=== PATIENT | female | born 1940 | race Caucasian/White ===

== ENCOUNTER → 2016-06-17 | Outpatient (CLI) | payer BC, MEDICARE ==
--- NOTE | 2016-06-17 10:14 | XR ---
EXAMINATION TYPE: XR knee complete RT DATE OF EXAM: 06/17/2016 10:02 AM CLINICAL HISTORY: pain TECHNIQUE: Frontal, lateral and oblique images of the right foot are obtained. COMPARISON: None. FINDINGS: There is no acute fracture/dislocation evident. The joint spaces appear within normal scott its. The overlying soft tissue appears unremarkable. IMPRESSION: There is no acute fracture or dislocation. ICD 10 NO FRACTURE, INITIAL EVALUATION
== END | disposition home or self-care (01) ==
LOC: RADXRMAIN 09:32
PROVIDERS: ATTEND Physician Assistant
DX: S83.411A Sprain of medial collateral ligament of right knee, initial encounter (principal)

== ENCOUNTER → 2018-07-18 | Outpatient (CLI) | payer MEDICARE ==
--- NOTE | 2018-07-18 13:20 | US ---
EXAMINATION TYPE: US venous doppler duplex LE LT DATE OF EXAM: 07/18/2018 12:48 PM COMPARISON: NONE CLINICAL HISTORY: LLL I80.9 Phlebitis M25.572 Pain left ankle joint. Left leg/ankle pain and swelling , pt recently diagnosed with left ankle fracture SIDE PERFORMED: Left TECHNIQUE: The lower extremity deep venous system is examined utilizing real time linear array sonog sanjay with graded compression, doppler sonography and color-flow sonography. VESSELS IMAGED: External Iliac Vein (EIV) Common Femoral Vein Deep Femoral Vein Greater Saphenous Vein * Femoral Vein Popliteal Vein Small Saphenous Vein * Proximal Calf Veins (* superficial vessels) Grayscale, color doppler, spectral doppler imaging performed of the deep veins of the left lower extr emity. There is normal flow, compressibility, vascular waveforms. Left Leg: Negative for DVT Results called to Georgette at Dr's office at time of exam IMPRESSION: No sonographic evidence of deep venous thrombosis within the left lower extremity.
== END | disposition home or self-care (01) ==
LOC: RADUSWWP 12:17
PROVIDERS: ATTEND Orthopaedic Surgery
DX: M25.572 Pain in left ankle and joints of left foot (principal); R60.9 Edema, unspecified

== ENCOUNTER → 2020-02-06 | Day surgery (SDC) | payer MEDICARE ==
[2020-02-04 15:11] VITALS: BMI 30.8
[~2020-02-06] MED LIST: ACETAMINOPHEN TAB 500 MG TAB PO ONE; DEXAMETHASONE SOD PHOSPHATE 4 MG/ML 1 ML VIAL IV ONE; GELATIN SPONGE,ABSORB (LARGE) 1 EACH SPONGE TOPICAL ONE; HEPARIN SODIUM,PORCINE 5,000 UNIT/ML 1 ML VIAL SQ ONE; LIDOCAINE 1% (10MG/ML) FOR IV START INTRADERMA ONE; LIDOCAINE 1% INJ 10MG/ML (20 ML MDV) ONE; LIDOCAINE 2% INJ 20 MG/ML SQ ONE; MIDAZOLAM 2 MG/2 ML VIAL ONE; NA PHOS,M-B/NA PHOS,DI-BA 133 ML ENEMA RECTAL ONE; ONDANSETRON 4 MG/2 ML VIAL IVP ONE; PROPOFOL 10 MG/ML 20 ML VIAL IV ONE; Pre Op ABX Message 1 EACH MISC MISCELLANE ONE; SODIUM CHLORIDE 0.9% 50 ML with ceFAZolin 2,000 MG IV ONE; SUCCINYLCHOLINE CHLORIDE 100 MG/5 ML SYR IV ONE; fentaNYL (PF) 50 MCG/ML 2 ML AMP ONE
[2020-02-06] MEDS: LACTATED RINGERS 1,000 ML IV SCH ×2 (07:44→08:40)
--- NOTE | 2020-02-06 08:45 | P.GSHP ---
History of Present Illness H&P Date: 02/06/20 Chief Complaint: Internal and external hemorrhoids This is a 1-year-old female who presents today for internal and external hemorrhoids. . Patient has had issues with rectal pain and bleeding and itching. Past Medical History Past Medical History: Hyperlipidemia, Hypertension, Thyroid Disorder Additional Past Medical History / Comment(s): internal and external hemmorhoids, states hx of arrythmia and palpitations History of Any Multi-Drug Resistant Organisms: None Reported Past Surgical History: Breast Surgery, Cholecystectomy Additional Past Surgical History / Comment(s): hiatal hernia, breast bx Past Anesthesia/Blood Transfusion Reactions: No Reported Reaction Smoking Status: Never smoker Medications and Allergies Home Medications Medication Instructions Recorded Confirmed Type Atorvastatin [Lipitor] 40 mg PO DAILY 11/26/14 02/06/20 History Levothyroxine Sodium [Synthroid] 100 mcg PO DAILY 11/26/14 02/06/20 History Spironolactone [Aldactone] 25 mg PO BID 11/26/14 02/06/20 History Flecainide Acetate [Tambocor] 150 mg PO BID 02/04/20 02/06/20 History Hydrocortisone Cream 1 applic TOPICAL BID PRN 02/04/20 02/06/20 History [Hydrocortisone 2.5% Cream] hydroCHLOROthiazide [Hydrodiuril] 25 mg PO DAILY 02/04/20 02/06/20 History Allergies Allergy/AdvReac Type Severity Reaction Status Date / Time No Known Allergies Allergy Verified 02/06/20 07:21 Surgical - Exam Vital Signs Temp Pulse Resp BP Pulse Ox 97.3 F L 79 18 193/85 95 02/06/20 07:39 02/06/20 07:39 02/06/20 07:39 02/06/20 07:39 02/06/20 07:39 - General well developed, well nourished, no distress - Eyes PERRL - ENT normal pinna - Neck no masses - Respiratory normal expansion - Cardiovascular Rhythm: regular - Abdomen Abdomen: soft, non tender Assessment and Plan Assessment: Internal and external hemorrhoids. We'll perform hemorrhoidectomy..
--- NOTE | 2020-02-06 09:28 | P.OP ---
Preoperative Diagnosis: Internal and external hemorrhoids Postoperative Diagnosis: Internal and external hemorrhoids Procedure(s) Performed: Internal and external hemorrhoidectomy Anesthesia: JOVITA Surgeon: Denilson Golden Pathology: other (Internal and external hemorrhoids) Condition: stable Disposition: PACU Description of Procedure: Patient's placed on the operating table in the prone position she received general anesthesia. Her anus was prepped and draped usual sterile fashion. The patient had a large left lateral hemorrhoidal column and a right anterior and right posterior hemorrhoid column. The anal retractors placed anus. The left lateral hemorrhoidal column was grasped. Allis clamps and using Harmonic scissors the hemorrhoidectomy is performed. The right anterior and right posterior column was dissected in identical fashion. The mucosal defect was closed 3-0 Vicryl. Patient top she will was sent to recovery room stable condition.
[2020-02-06 09:30] VITALS: TEMP 97
[2020-02-06] MEDS: HYDROmorphone 0.5 MG/0.5 ML SYRINGE IVP PRN ×2 (09:37→10:04)
[2020-02-06 11:11] VITALS: RESP 16
[2020-02-06 11:43] VITALS: BP 186/77; PULSE 64
== END ==
LOC: OR 06:57
PROVIDERS: ATTEND Surgery
DX: K64.5 Perianal venous thrombosis (principal); I10 Essential (primary) hypertension; E78.5 Hyperlipidemia, unspecified; E07.9 Disorder of thyroid, unspecified; I49.9 Cardiac arrhythmia, unspecified; Z87.19 Personal history of other diseases of the digestive system; Z79.890 Hormone replacement therapy; Z79.899 Other long term (current) drug therapy; Z90.49 Acquired absence of other specified parts of digestive tract; Z98.890 Other specified postprocedural states
CPT/HCPCS: 88304; 46260; J2001 ×2; J2250; J1644; J1100; J2405; J0690; J3010; J0330; J2704; J1170

== ENCOUNTER 2020-02-08 17:50 | Emergency (ER) | payer MEDICARE ==
[2020-02-08] MEDS ORDERED: polyethylene glycoL 3350 17 GM POWD.PACK PO STA (18:46)
[2020-02-08] MEDS ORDERED: LACTULOSE 20 GM/30 ML CUP PO ONE (19:24)
--- NOTE | 2020-02-08 19:27 | ED ---
General Adult HPI - General Chief complaint: Abdominal Pain Stated complaint: x-ray f/u constipation Time Seen by Provider: 02/08/20 18:45 Source: patient Mode of arrival: ambulatory Limitations: no limitations - History of Present Illness Initial comments: Dictation was produced using [employer] dictation software. please excuse any grammatical, word or spelling errors. This patient was cared for during a federal and state declared state of emergency secondary to Covid 19 Chief Complaint: 79-year-old female presents today with rectal pain History of Present Illness: 79-year-old female presents today with rectal pain. 2 days ago patient had surgery performed by Dr. Merida. Patient had thyroidectomy performed for internal and external hemorrhoids. After the surgery patient states that she's been having constant rectal pain. She denies not having any bowel movement. She was seen at primary care physician's office where they did x-rays and urine. urine studies were negative. She was told to come to the emergency department for further evaluation. Complaining of rectal pain. GI bleeding. She does take Colace and Percocet at home. The ROS documented in this emergency department record has been reviewed and confirmed by me. Those systems with pertinent positive or negative responses have been documented in the HPI. All other systems are other negative and/or noncontributory. PHYSICAL EXAM: General Impression: Alert and oriented x3, not in acute distress HEENT: Normocephalic atraumatic, extra-ocular movements intact, pupils equal and reactive to light bilaterally, mucous membranes moist. Cardiovascular: Heart regular rate and rhythm Chest: Able to complete full sentences, no retractions, no tachypnea Abdomen: abdomen soft, superpubic pressure with palpation, non-distended, no organomegaly Musculoskeletal: Pulses present and equal in all extremities, no peripheral edema Motor: no focal deficits noted Neurological: CN II-XII grossly intact, no focal motor or sensory deficits noted Skin: Intact with no visualized rashes Psych: Normal affect and mood ED course: 79 Old female presents today with postoperative rectal pain and constipation. vital signs upon arrival are within acceptable limits. Case was discussed with Dr. Golden. He does not recommend administration at this time given that she is too soon from surgery. He does recommend lactulose administration. She does have an appointment with Dr. Golden on Tuesday. Patient was offered lactulose however she preferred to just take it at home and be discharged. Patient given prescription for lactulose. She has a appointment Dr. Golden keep that appointment. Return parameters were including her discharge paperwork. Patient be discharged - Related Data Home Medications Medication Instructions Recorded Confirmed Atorvastatin [Lipitor] 40 mg PO DAILY 11/26/14 02/06/20 Levothyroxine Sodium [Synthroid] 100 mcg PO DAILY 11/26/14 02/06/20 Spironolactone [Aldactone] 25 mg PO BID 11/26/14 02/06/20 Flecainide Acetate [Tambocor] 150 mg PO BID 02/04/20 02/06/20 Hydrocortisone Cream 1 applic TOPICAL BID PRN 02/04/20 02/06/20 [Hydrocortisone 2.5% Cream] hydroCHLOROthiazide [Hydrodiuril] 25 mg PO DAILY 02/04/20 02/06/20 Previous Rx's Medication Instructions Recorded Acetaminophen Tab [Tylenol] 650 mg PO Q6H #30 tab 02/06/20 Docusate [Colace] 100 mg PO BID #20 capsule 02/06/20 Ibuprofen [Motrin] 600 mg PO Q6HR PRN #40 tab 02/06/20 oxyCODONE HCL [OxyIR] 5 mg PO Q4H PRN 3 Days #18 tab 02/06/20 Lactulose 10 gm PO BID 3 Days #60 ml 02/08/20 Allergies Allergy/AdvReac Type Severity Reaction Status Date / Time No Known Allergies Allergy Verified 02/08/20 18:16 Review of Systems ROS Statement: Those systems with pertinent positive or pertinent negative responses have been documented in the HPI. ROS Other: All systems not noted in ROS Statement are negative. Past Medical History Past Medical History: Hyperlipidemia, Hypertension, Thyroid Disorder Additional Past Medical History / Comment(s): internal and external hemmorhoids, states hx of arrythmia and palpitations History of Any Multi-Drug Resistant Organisms: None Reported Past Surgical History: Breast Surgery, Cholecystectomy Additional Past Surgical History / Comment(s): hiatal hernia, breast bx Past Anesthesia/Blood Transfusion Reactions: No Reported Reaction Past Psychological History: No Psychological Hx Reported Smoking Status: Never smoker Past Alcohol Use History: None Reported Past Drug Use History: None Reported General Exam Limitations: no limitations Course Vital Signs 02/08/20 18:12 Temperature 97.6 F Pulse Rate 67 Respiratory 20 Rate Blood Pressure 156/76 O2 Sat by Pulse 98 Oximetry Disposition Clinical Impression: Abdominal pain Disposition: HOME SELF-CARE Condition: Fair Instructions (If sedation given, give patient instructions): Rectal Pain (ED) Additional Instructions: Follow-up with Dr. Golden as scheduled on Tuesday. Please seek immediate medical attention if he have worsening pain, fevers or continuous GI bleed. Prescriptions: Lactulose 10 gm PO BID 3 Days #60 ml Is patient prescribed a controlled substance at d/c from ED?: No Referrals: Denilson Golden MD [STAFF PHYSICIAN] - 1-2 days Time of Disposition: 20:01
[2020-02-08 20:22] VITALS: BP 182/97; PULSE 69; RESP 17; TEMP 97.5
== END 2020-02-08 20:21 | disposition home or self-care (01) ==
LOC: EC 17:50
DX: R10.30 Lower abdominal pain, unspecified (principal); K62.89 Other specified diseases of anus and rectum; E78.5 Hyperlipidemia, unspecified; I10 Essential (primary) hypertension; E07.9 Disorder of thyroid, unspecified; Z79.890 Hormone replacement therapy; Z79.899 Other long term (current) drug therapy; Z90.49 Acquired absence of other specified parts of digestive tract
CPT/HCPCS: 99283

== ENCOUNTER → 2020-02-08 | Outpatient (CLI) | payer MEDICARE ==
--- NOTE | 2020-02-08 18:02 | XR ---
EXAM: Abdomen radiograph. HISTORY: Pain. TECHNIQUE: Supine and upright AP view. COMPARISON: None available. FINDINGS: There are nondilated bowel loops with a nonobstructive pattern. No free air. There are no pathologic calcifications. No acute osseous abnormality seen. Cholecystectomy and additional upper abdominal josias gical clips are seen. There is moderate colonic stool burden. IMPRESSION: Nonobstructive bowel gas pattern. Moderate stool burden.
== END | disposition home or self-care (01) ==
LOC: RAD 17:15
PROVIDERS: ATTEND Nurse Practitioner
DX: R10.9 Unspecified abdominal pain (principal)
CPT/HCPCS: 74019

== ENCOUNTER 2020-02-09 05:58 | Emergency (ER) | payer MEDICARE ==
--- NOTE | 2020-02-09 06:14 | ED ---
Female Urogenital HPI - General Stated complaint: Urogenital Time Seen by Provider: 02/09/20 06:01 Source: RN notes reviewed, old records reviewed - History of Present Illness Initial comments: This is a 79-year-old female DF for evaluation of pelvic pain. Patient has persistent suprapubic pain she has had recent surgery and is unable to urinate for 2 days severe severe suprapubic pain inability urinate since surgery. Maybe some dribbling. Patient isn't the worst pain of her life. MD Complaint: dysuria -: days(s) Location: suprapubic Radiation: suprapubic Severity: mild Severity scale (1-10): 2 Quality: cramping Consistency: constant Improves with: none Worsens with: none - Related Data Home Medications Medication Instructions Recorded Confirmed Atorvastatin [Lipitor] 40 mg PO DAILY 11/26/14 02/06/20 Levothyroxine Sodium [Synthroid] 100 mcg PO DAILY 11/26/14 02/06/20 Spironolactone [Aldactone] 25 mg PO BID 11/26/14 02/06/20 Flecainide Acetate [Tambocor] 150 mg PO BID 02/04/20 02/06/20 Hydrocortisone Cream 1 applic TOPICAL BID PRN 02/04/20 02/06/20 [Hydrocortisone 2.5% Cream] hydroCHLOROthiazide [Hydrodiuril] 25 mg PO DAILY 02/04/20 02/06/20 Previous Rx's Medication Instructions Recorded Acetaminophen Tab [Tylenol] 650 mg PO Q6H #30 tab 02/06/20 Docusate [Colace] 100 mg PO BID #20 capsule 02/06/20 Ibuprofen [Motrin] 600 mg PO Q6HR PRN #40 tab 02/06/20 oxyCODONE HCL [OxyIR] 5 mg PO Q4H PRN 3 Days #18 tab 02/06/20 Lactulose 10 gm PO BID 3 Days #60 ml 02/08/20 Allergies Allergy/AdvReac Type Severity Reaction Status Date / Time No Known Allergies Allergy Verified 02/09/20 06:27 Review of Systems ROS Statement: Those systems with pertinent positive or pertinent negative responses have been documented in the HPI. ROS Other: All systems not noted in ROS Statement are negative. Past Medical History Past Medical History: Hyperlipidemia, Hypertension, Thyroid Disorder Additional Past Medical History / Comment(s): internal and external hemmorhoids, states hx of arrythmia and palpitations History of Any Multi-Drug Resistant Organisms: None Reported Past Surgical History: Breast Surgery, Cholecystectomy Additional Past Surgical History / Comment(s): hiatal hernia, breast bx Past Anesthesia/Blood Transfusion Reactions: No Reported Reaction Past Psychological History: No Psychological Hx Reported Smoking Status: Never smoker Past Alcohol Use History: None Reported Past Drug Use History: None Reported General Exam General appearance: alert, in no apparent distress Head exam: Present: atraumatic, normocephalic, normal inspection Eye exam: Present: normal appearance, PERRL, EOMI. Absent: scleral icterus, conjunctival injection, periorbital swelling ENT exam: Present: normal exam, mucous membranes moist Neck exam: Present: normal inspection. Absent: tenderness, meningismus, lymphadenopathy Respiratory exam: Present: normal lung sounds bilaterally. Absent: respiratory distress, wheezes, rales, rhonchi, stridor Cardiovascular Exam: Present: regular rate, normal rhythm, normal heart sounds. Absent: systolic murmur, diastolic murmur, rubs, gallop, clicks GI/Abdominal exam: Present: soft, normal bowel sounds. Absent: distended, tenderness, guarding, rebound, rigid Extremities exam: Present: normal inspection, full ROM, normal capillary refill. Absent: tenderness, pedal edema, joint swelling, calf tenderness Back exam: Present: normal inspection Neurological exam: Present: alert, oriented X3, CN II-XII intact Psychiatric exam: Present: normal affect, normal mood Skin exam: Present: warm, dry, intact, normal color. Absent: rash Course Vital Signs 02/09/20 02/09/20 06:25 07:22 Temperature 98.2 F 98 F Pulse Rate 83 70 Respiratory 19 18 Rate Blood Pressure 192/83 158/81 O2 Sat by Pulse 96 98 Oximetry - Reevaluation(s) Reevaluation #1: Record is reviewed Heath catheter is placed without difficulty, greater than 1500 and also been released from the Heath catheter Patient feels better without complaint will be discharged home on leg but Medical Decision Making - Medical Decision Making 79 female DF for evaluation patient has significant. Abdominal pain secondary to urinary retention secondary to medications and anesthesia from surgery. Patient's Heath catheter placed with satisfactory output, urine will be cultured patient can be discharged - Lab Data Lab Results 02/09/20 Range/Units 06:29 Urine Color Light Yellow Urine Appearance Clear (Clear) Urine pH 5.0 (5.0-8.0) Ur Specific [place] 1.009 (1.001-1.035) Urine Protein Negative (Negative) Urine Glucose (UA) Negative (Negative) Urine Ketones Negative (Negative) Urine Blood Negative (Negative) Urine Nitrite Negative (Negative) Urine Bilirubin Negative (Negative) Urine Urobilinogen <2.0 (<2.0) mg/dL Ur Leukocyte Esterase Negative (Negative) Disposition Clinical Impression: Abdominal pain, Urinary retention Disposition: HOME SELF-CARE Condition: Good Instructions (If sedation given, give patient instructions): Acute Urinary Retention in Women (ED) Is patient prescribed a controlled substance at d/c from ED?: No Referrals: Shadi Muhammad MD [Primary Care Provider] - 1-2 days Nick Rivera MD [STAFF PHYSICIAN] - 1-2 days
[2020-02-09 06:44] LABS: Appearance,Urine Clear (Clear); Bilirubin,Urine Negative (Negative); Blood,Urine Negative (Negative); Color,Urine Light Yellow; Glucose,Urine (UA) Negative (Negative); Ketones,Urine Negative (Negative); Leukocyte Esterase,Urine Negative (Negative); Nitrite,Urine Negative (Negative); Protein,Urine Negative (Negative); Specific Gravity,Urine 1.009 (1.001-1.035); Urobilinogen,Urine <2.0 mg/dL (<2.0)
[2020-02-09 07:23] VITALS: BP 158/81; PULSE 70; RESP 18; TEMP 98
== END 2020-02-09 07:49 | disposition home or self-care (01) ==
LOC: EC 05:58
DX: R33.9 Retention of urine, unspecified (principal); R10.2 Pelvic and perineal pain; R10.30 Lower abdominal pain, unspecified; R30.0 Dysuria; I10 Essential (primary) hypertension; E78.5 Hyperlipidemia, unspecified; E07.9 Disorder of thyroid, unspecified; Z79.890 Hormone replacement therapy; Z79.899 Other long term (current) drug therapy
CPT/HCPCS: 51702; 81003; 99284

== ENCOUNTER 2020-03-11 20:55 | Inpatient (IN) | payer MEDICARE ==
[2020-03-11] MEDS ORDERED: ONDANSETRON 4 MG/2 ML VIAL IVP STA (21:15)
[2020-03-11] MEDS ORDERED: SODIUM CHLORIDE 0.9% 500 ML 500 ML IV STA (21:15)
[2020-03-11] MEDS ORDERED: KETOROLAC 15 MG/ML 1 ML VIAL IVP STA (21:15)
--- NOTE | 2020-03-11 21:24 | ED ---
General Adult HPI - General Chief complaint: Fall Stated complaint: Fall Time Seen by Provider: 03/11/20 20:57 Source: patient, EMS Mode of arrival: EMS Limitations: no limitations - History of Present Illness Initial comments: 79-year-old female patient presents to the emergency department today for evaluation of right ankle pain after experiencing a fall. Patient states she became dizzy and had a fall injuring the ankle. Denies hitting her head or losing consciousness with the fall. Denies any neck or back pain. Denies any other injury. Believes she got dizzy because she didn't eat very much today. Patient denies numbness or tingling to the foot but states she has significant pain to the right ankle. States she is unable to bear weight or walk on it. Denies previous injury to this ankle. Patient denies any recent rash, fever, chills, cough, shortness of breath, chest pain, abdominal pain, nausea, vomiting, diarrhea, constipation, numbness, tingling, dizziness, weakness, hematuria, dysuria, urinary urgency, urinary frequency, headache, visual changes, or any other complaints. - Related Data Home Medications Medication Instructions Recorded Confirmed Atorvastatin [Lipitor] 40 mg PO HS 11/26/14 03/11/20 Levothyroxine Sodium [Synthroid] 100 mcg PO HS 11/26/14 03/11/20 Spironolactone [Aldactone] 25 mg PO BID 11/26/14 03/11/20 Flecainide Acetate [Tambocor] 150 mg PO BID 02/04/20 03/11/20 hydroCHLOROthiazide [Hydrodiuril] 25 mg PO DAILY 02/04/20 03/11/20 Ascorbic Acid [Vitamin C] 500 mg PO DAILY 03/11/20 03/11/20 Calcium Carbonate [Calcium] 600 mg PO DAILY 03/11/20 03/11/20 Multivitamins, Thera [Multivitamin 1 tab PO DAILY 03/11/20 03/11/20 (formulary)] Allergies Allergy/AdvReac Type Severity Reaction Status Date / Time No Known Allergies Allergy Verified 03/11/20 22:16 Review of Systems ROS Statement: Those systems with pertinent positive or pertinent negative responses have been documented in the HPI. ROS Other: All systems not noted in ROS Statement are negative. Past Medical History Past Medical History: Hyperlipidemia, Hypertension, Thyroid Disorder Additional Past Medical History / Comment(s): internal and external hemmorhoids, states hx of arrythmia and palpitations History of Any Multi-Drug Resistant Organisms: None Reported Past Surgical History: Breast Surgery, Cholecystectomy Additional Past Surgical History / Comment(s): hiatal hernia, breast bx Past Anesthesia/Blood Transfusion Reactions: No Reported Reaction Past Psychological History: No Psychological Hx Reported Smoking Status: Never smoker Past Alcohol Use History: None Reported Past Drug Use History: None Reported General Exam Limitations: no limitations General appearance: alert, in no apparent distress, other (This well-developed, well-nourished elderly female patient in no acute distress. Vital signs upon presentation are temperature 97.9F, pulse 78, respirations 18, blood pressure 201/98, pulse ox 98% on room air.) Respiratory exam: Present: normal lung sounds bilaterally. Absent: respiratory distress, wheezes, rales, rhonchi, stridor Cardiovascular Exam: Present: regular rate, normal rhythm, normal heart sounds. Absent: systolic murmur, diastolic murmur, rubs, gallop, clicks GI/Abdominal exam: Present: soft, normal bowel sounds. Absent: distended, t enderness, guarding, rebound, rigid Extremities exam: Present: tenderness (Medial and lateral malleolus, anterior.), normal capillary refill, other (There is deformity and soft tissue swelling noted surrounding the right ankle. Skin is pink, warm, dry. Pedal and posttibial pulses 2+.). Absent: normal inspection, full ROM (No active Range of motion to the right ankle), pedal edema, joint swelling, calf tenderness Neurological exam: Present: alert, oriented X3, CN II-XII intact Psychiatric exam: Present: normal affect, normal mood Skin exam: Present: warm, dry, intact, normal color. Absent: rash Course Vital Signs 03/11/20 03/11/20 03/11/20 20:59 22:56 23:00 Temperature 97.9 F Pulse Rate 78 75 74 Respiratory 18 17 17 Rate Blood Pressure 201/98 171/102 172/97 O2 Sat by Pulse 98 100 98 Oximetry 03/11/20 03/11/20 23:06 23:25 Temperature 98.0 F Pulse Rate 71 67 Respiratory 18 18 Rate Blood Pressure 150/94 156/84 O2 Sat by Pulse 96 98 Oximetry EKG Findings - EKG Comments: EKG Findings:: EKG obtained at 2140 shows sinus rhythm with a first-degree AV block. Ventricular rate is 70, IN interval 232, QRS duration 122, QTc 464, QTc 501. No evidence of ST elevation or depression. Procedures - Orthopedic Fracture Reduction Fracture #1 Consent Obtained: written consent Side: right Fracture Reduction Location: tibia, fibula Analgesia: other (Dilaudid, Ativan) Technique: traction/counter-traction Post Reduction X-rays Demonstrate: acceptable reduction Post-Reduction Neuro Exam: intact Post-Reduction Vascular Exam: intact Splint Applied: Yes Patient Tolerated Procedure: well, no complications Additional Comments: Dr. Molina performed reduction. - Orthopedic Splinting/Casting Injury #1 Side: right Lower Extremity Injury Location: short leg, ankle Lower Extremity Immobilizer: posterior splint, stirrup splint, Kali wrap Additional Comments: Padded with web roll. Neurovascular status intact after application. Skin to the toes is pink, warm, dry. Cap refills less than 3 seconds. Patient denies numbness or tingling to the toes. Medical Decision Making - Medical Decision Making 79-year-old female patient presents to the emergency department today for evaluation of right ankle pain after experiencing a fall at home. Patient states she got very dizzy had the fall and then was unable to get up due to ankle pain. Physical examination did reveal soft tissue swelling and deformity to the right ankle. Foot was neurovascularly intact. She is neurologically intact with no focal deficits. Had no neck pain or tenderness. Denied hitting her head or losing consciousness. Labs reviewed and revealed mildly elevated white blood cell count at 11, sodium 135, BUN 21, creatinine 1.32. Urinalysis revealed a cloudy appearance with trace ketones, large leukocyte esterase, 30 white blood cells, rare bacteria, 4 hyaline casts, and rare mucous. Dr. Molina was in and performed right ankle reduction. This was performed with ativan and pain medication no conscious sedation. Patient tolerated the procedure well without pain. Splint was applied. She is given Rocephin for the urinary tract infection. We'll admit to the hospital to Dr. Dugan and consult medicine for further evaluation of her UTI and dehydration. - Lab Data Result diagrams: 03/11/20 21:33 03/11/20 21:33 Lab Results 12/03/11/20 03/11/20 Range/Units 21:33 21:33 21:33 WBC 11.0 H (3.8-10.6) k/uL RBC 4.73 (3.80-5.40) m/uL Hgb 14.2 (11.4-16.0) gm/dL Hct 43.4 (34.0-46.0) % MCV 91.8 (80.0-100.0) fL MCH 29.9 (25.0-35.0) pg MCHC 32.6 (31.0-37.0) g/dL RDW 12.7 (11.5-15.5) % Plt Count 251 (150-450) k/uL MPV 7.1 Neutrophils % 83 % Lymphocytes % 7 % Monocytes % 8 % Eosinophils % 1 % Basophils % 0 % Neutrophils # 9.1 H (1.3-7.7) k/uL Lymphocytes # 0.7 L (1.0-4.8) k/uL Monocytes # 0.9 (0-1.0) k/uL Eosinophils # 0.1 (0-0.7) k/uL Basophils # 0.0 (0-0.2) k/uL PT 9.9 (9.0-12.0) sec INR 0.9 (<1.2) APTT 21.2 L (22.0-30.0) sec Sodium (137-145) mmol/L Potassium (3.5-5.1) mmol/L Chloride (98-107) mmol/L Carbon Dioxide (22-30) mmol/L Anion Gap mmol/L BUN (7-17) mg/dL Creatinine (0.52-1.04) mg/dL Est GFR (CKD-EPI)AfAm (>60 ml/min/1.73 sqM) Est GFR (CKD-EPI)NonAf (>60 ml/min/1.73 sqM) Glucose (74-99) mg/dL Calcium (8.4-10.2) mg/dL Total Bilirubin (0.2-1.3) mg/dL AST (14-36) U/L ALT (4-34) U/L Alkaline Phosphatase (38-126) U/L Total Protein (6.3-8.2) g/dL Albumin (3.5-5.0) g/dL Urine Color Yellow Urine Appearance Cloudy H (Clear) Urine pH 5.5 (5.0-8.0) Ur Specific [place] 1.012 (1.001-1.035) Urine Protein Negative (Negative) Urine Glucose (UA) Negative (Negative) Urine Ketones Trace H (Negative) Urine Blood Negative (Negative) Urine Nitrite Negative (Negative) Urine Bilirubin Negative (Negative) Urine Urobilinogen <2.0 (<2.0) mg/dL Ur Leukocyte Esterase Large H (Negative) Urine RBC 1 (0-5) /hpf Urine WBC 30 H (0-5) /hpf Ur Squamous Epith Cells 3 (0-4) /hpf Urine Bacteria Rare H (None) /hpf Hyaline Casts 4 H (0-2) /lpf Urine Mucus Rare H (None) /hpf 03/11/20 Range/Units 21:33 WBC (3.8-10.6) k/uL RBC (3.80-5.40) m/uL Hgb (11.4-16.0) gm/dL Hct (34.0-46.0) % MCV (80.0-100.0) fL MCH (25.0-35.0) pg MCHC (31.0-37.0) g/dL RDW (11.5-15.5) % Plt Count (150-450) k/uL MPV Neutrophils % % Lymphocytes % % Monocytes % % Eosinophils % % Basophils % % Neutrophils # (1.3-7.7) k/uL Lymphocytes # (1.0-4.8) k/uL Monocytes # (0-1.0) k/uL Eosinophils # (0-0.7) k/uL Basophils # (0-0.2) k/uL PT (9.0-12.0) sec INR (<1.2) APTT (22.0-30.0) sec Sodium 135 L (137-145) mmol/L Potassium 4.0 (3.5-5.1) mmol/L Chloride 102 (98-107) mmol/L Carbon Dioxide 27 (22-30) mmol/L Anion Gap 6 mmol/L BUN 21 H (7-17) mg/dL Creatinine 1.32 H (0.52-1.04) mg/dL Est GFR (CKD-EPI)AfAm 44 (>60 ml/min/1.73 sqM) Est GFR (CKD-EPI)NonAf 38 (>60 ml/min/1.73 sqM) Glucose 112 H (74-99) mg/dL Calcium 9.9 (8.4-10.2) mg/dL Total Bilirubin 0.8 (0.2-1.3) mg/dL AST 37 H (14-36) U/L ALT 28 (4-34) U/L Alkaline Phosphatase 102 (38-126) U/L Total Protein 6.7 (6.3-8.2) g/dL Albumin 3.7 (3.5-5.0) g/dL Urine Color Urine Appearance (Clear) Urine pH (5.0-8.0) Ur Specific [place] (1.001-1.035) Urine Protein (Negative) Urine Glucose (UA) (Negative) Urine Ketones (Negative) Urine Blood (Negative) Urine Nitrite (Negative) Urine Bilirubin (Negative) Urine Urobilinogen (<2.0) mg/dL Ur Leukocyte Esterase (Negative) Urine RBC (0-5) /hpf Urine WBC (0-5) /hpf Ur Squamous Epith Cells (0-4) /hpf Urine Bacteria (None) /hpf Hyaline Casts (0-2) /lpf Urine Mucus (None) /hpf - Radiology Data Radiology results: report reviewed, image reviewed 2 views of the right ankle obtained. Report reviewed in its entirety. Impression by Dr. Rivers shows lateral fracture dislocation of the ankle probably trimalleolus fracture. 2 views of the right ankle are obtained. Report was reviewed in its entirety. Impression by Dr. Rivers shows satisfactory reduction. Mildly displaced trimalleolar fracture of the ankle. Disposition Clinical Impression: Trimalleolar fracture of right ankle, UTI (urinary tract infection), Dehydration Disposition: ADMITTED IP TO THIS [facility] Condition: Serious Referrals: Shadi Muhammad MD [Primary Care Provider] - 1-2 days Decision to Admit Reason: Admit from EC Decision Date: 03/11/20 Decision Time: 23:13
--- NOTE | 2020-03-11 21:40 | XR ---
EXAMINATION TYPE: XR ankle limited RT DATE OF EXAM: 03/11/2020 COMPARISON: NONE HISTORY: Fall. Pain. TECHNIQUE: 2 views FINDINGS: There is lateral dislocation of the talus. There is fracture of the medial and lateral mall eolus. There is probably also large chip fracture of the posterior malleolus. IMPRESSION: There is a lateral fracture dislocation of the ankle with probably trimalleolus fracture.
[2020-03-11 21:58] LABS: Basophils % (A) 0 %; Eosinophils # (A) 0.1 k/uL (0-0.7); Eosinophils % (A) 1 %; HCT 43.4 % (34.0-46.0); HGB 14.2 gm/dL (11.4-16.0); Lymphocytes # (A) 0.7 k/uL (1.0-4.8); Lymphocytes % (A) 7 %; MCH 29.9 pg (25.0-35.0); MCHC 32.6 g/dL (31.0-37.0); MCV 91.8 fL (80.0-100.0); Mean Platelet Volume 7.1; Monocytes # (A) 0.9 k/uL (0-1.0); Monocytes % (A) 8 %; Neutrophils # (A) 9.1 k/uL (1.3-7.7); Neutrophils % (A) 83 %; Platelet Count 251 k/uL (150-450); RBC 4.73 m/uL (3.80-5.40); RDW 12.7 % (11.5-15.5)
[2020-03-11] MEDS ORDERED: PROPOFOL 10 MG/ML 20 ML VIAL IV STA (22:01)
[2020-03-11 22:02] LABS: Albumin 3.7 g/dL (3.5-5.0); Calcium 9.9 mg/dL (8.4-10.2); Total Bilirubin 0.8 mg/dL (0.2-1.3); Total Protein 6.7 g/dL (6.3-8.2)
[2020-03-11 22:14] LABS: INR 0.9 (<1.2); Prothrombin Time 9.9 sec (9.0-12.0)
[2020-03-11 22:15] LABS: Partial Thromboplastin Time 21.2 sec (22.0-30.0)
[2020-03-11 22:41] LABS: Appearance,Urine Cloudy (Clear); Bacteria,Urine Rare /hpf; Bilirubin,Urine Negative (Negative); Blood,Urine Negative (Negative); Color,Urine Yellow; Glucose,Urine (UA) Negative (Negative); Hyaline Casts,Urine 4 /lpf (0-2); Ketones,Urine Trace (Negative); Leukocyte Esterase,Urine Large (Negative); Mucus,Urine Rare /hpf; Nitrite,Urine Negative (Negative); PH, Urine 5.5 (5.0-8.0); Protein,Urine Negative (Negative); RBC,Urine 1 /hpf (0-5); Specific Gravity,Urine 1.012 (1.001-1.035); Squamous Epithelial Cell,Urine 3 /hpf (0-4); Urobilinogen,Urine <2.0 mg/dL (<2.0); WBC,Urine 30 /hpf (0-5)
[2020-03-11] MEDS ORDERED: LORazepam 2 MG/ML INJ IV STA (22:44)
[2020-03-11] MEDS ORDERED: HYDROmorphone 1 MG/ML 1 ML SYRINGE IM PRN (22:54)
[2020-03-11] MEDS ORDERED: ONDANSETRON 4 MG/2 ML VIAL IVP PRN (23:08)
[2020-03-11] MEDS ORDERED: NALOXONE 0.4 MG/ML 1 ML VIAL IV PRN (23:08)
--- NOTE | 2020-03-11 23:39 | XR ---
EXAMINATION TYPE: XR ankle limited RT DATE OF EXAM: 03/11/2020 COMPARISON: Today HISTORY: Post reduction TECHNIQUE: 2 views FINDINGS: There is reasonable anatomic reduction of the dislocated talus. There is trimalleolar fract ure of the ankle with separation of the fragments up to 6 mm. There is slight lateral position of the talus. There is large posterior malleolus chip fracture. IMPRESSION: Satisfactory reduction. There is mildly displaced trimalleolar fracture of the ankle.
[2020-03-11] MEDS: SODIUM CHLORIDE 0.9% 1,000 ML IV SCH (23:55)
[2020-03-12] MEDS: HYDROmorphone 0.5 MG/0.5 ML SYRINGE IVP PRN ×3 (02:33→11:07)
[2020-03-12 07:12] LABS: Albumin 3.4 g/dL (3.5-5.0); Calcium 9.1 mg/dL (8.4-10.2); Total Bilirubin 0.6 mg/dL (0.2-1.3); Total Protein 6.2 g/dL (6.3-8.2)
--- NOTE | 2020-03-12 10:01 | P.HPOR ---
History of Present Illness H&P Date: 03/12/20 Chief Complaint: Right ankle fracture Patient is an 79-year-old female seen at bedside this am. She was admitted through the ED last evening after suffering a fall at home resulting in right ankle pain and inability to walk. Patient states she became dizzy and had a fall injuring the ankle. She denies hitting her head or losing consciousness with the fall. She denies any neck or back pain. Denies any other injury. Believes she got dizzy because she didn't eat very much yesterday. Patient denies numbness or tingling to the foot but states she has significant pain to the right ankle. Patient denies any recent rash, fever, chills, cough, shortness of breath, chest pain, abdominal pain, nausea, vomiting, diarrhea, constipation, numbness, tingling, dizziness, weakness, hematuria, dysuria, urinary urgency, urinary frequency, headache, visual changes, or any other complaints. Review of Systems All systems: negative Constitutional: Denies chills, Denies fever Eyes: denies blurred vision, denies pain Ears, nose, mouth and throat: Denies headache, Denies sore throat Cardiovascular: Denies chest pain, Denies shortness of breath Respiratory: Denies cough Gastrointestinal: Denies abdominal pain, Denies diarrhea, Denies nausea, Denies vomiting Genitourinary: Denies dysuria, Denies hematuria Musculoskeletal: Denies myalgias Integumentary: Denies pruritus, Denies rash Neurological: Denies numbness, Denies weakness Psychiatric: Denies anxiety, Denies depression Endocrine: Denies fatigue, Denies weight change Past Medical History Past Medical History: Hyperlipidemia, Hypertension, Thyroid Disorder Additional Past Medical History / Comment(s): internal and external hemmorhoids, states hx of arrythmia and palpitations History of Any Multi-Drug Resistant Organisms: None Reported Past Surgical History: Breast Surgery, Cholecystectomy Additional Past Surgical History / Comment(s): hiatal hernia, breast bx Past Anesthesia/Blood Transfusion Reactions: No Reported Reaction Past Psychological History: No Psychological Hx Reported Smoking Status: Never smoker Past Alcohol Use History: Rare Past Drug Use History: None Reported Medications and Allergies Home Medications Medication Instructions Recorded Confirmed Type Atorvastatin [Lipitor] 40 mg PO HS 11/26/14 03/11/20 History Levothyroxine Sodium [Synthroid] 100 mcg PO HS 11/26/14 03/11/20 History Spironolactone [Aldactone] 25 mg PO BID 11/26/14 03/11/20 History Flecainide Acetate [Tambocor] 150 mg PO BID 02/04/20 03/11/20 History hydroCHLOROthiazide [Hydrodiuril] 25 mg PO DAILY 02/04/20 03/11/20 History Ascorbic Acid [Vitamin C] 500 mg PO DAILY 03/11/20 03/11/20 History Calcium Carbonate [Calcium] 600 mg PO DAILY 03/11/20 03/11/20 History Multivitamins, Thera [Multivitamin 1 tab PO DAILY 03/11/20 03/11/20 History (formulary)] Allergies Allergy/AdvReac Type Severity Reaction Status Date / Time No Known Allergies Allergy Verified 03/11/20 22:16 Physical Examination On exam, no proximal fibula tenderness to palpation. There is swelling about the medial and lateral aspect of the ankle. Tenderness about the medial and lateral malleolus to palpation. Achilles is intact. No pain at the 5th metatarsal to palpation. Limited motion secondary to fracture. Intact sensation at the lateral, medial and plantar first dorsal web spaces. There is 2+ posterior tibial pulse with brisk capillary refill in all digits. No wounds or fracture blisters. Results Xrays of the right ankle show displaced fractures of the medial and lateral malleoli with unstable ankle mortise. Post reduction xrays show improved alignment - Labs Labs: Abnormal Lab Results - Last 24 Hours (Table) 03/11/20 03/11/20 03/11/20 Range/Units 21:33 21:33 21:33 WBC 11.0 H (3.8-10.6) k/uL Neutrophils # 9.1 H (1.3-7.7) k/uL Lymphocytes # 0.7 L (1.0-4.8) k/uL APTT 21.2 L (22.0-30.0) sec Sodium (137-145) mmol/L BUN (7-17) mg/dL Creatinine (0.52-1.04) mg/dL Glucose (74-99) mg/dL AST (14-36) U/L Total Protein (6.3-8.2) g/dL Albumin (3.5-5.0) g/dL Urine Appearance Cloudy H (Clear) Urine Ketones Trace H (Negative) Ur Leukocyte Esterase Large H (Negative) Urine WBC 30 H (0-5) /hpf Urine Bacteria Rare H (None) /hpf Hyaline Casts 4 H (0-2) /lpf Urine Mucus Rare H (None) /hpf 03/11/20 03/12/20 Range/Units 21:33 05:46 WBC (3.8-10.6) k/uL Neutrophils # (1.3-7.7) k/uL Lymphocytes # (1.0-4.8) k/uL APTT (22.0-30.0) sec Sodium 135 L 135 L (137-145) mmol/L BUN 21 H 19 H (7-17) mg/dL Creatinine 1.32 H 1.27 H (0.52-1.04) mg/dL Glucose 112 H (74-99) mg/dL AST 37 H (14-36) U/L Total Protein 6.2 L (6.3-8.2) g/dL Albumin 3.4 L (3.5-5.0) g/dL Urine Appearance (Clear) Urine Ketones (Negative) Ur Leukocyte Esterase (Negative) Urine WBC (0-5) /hpf Urine Bacteria (None) /hpf Hyaline Casts (0-2) /lpf Urine Mucus (None) /hpf Microbiology - Last 24 Hours (Table) 03/11/20 21:33 Urine Culture - Preliminary Urine,Voided H & H 03/11/20 Range/Units 21:33 Hgb 14.2 (11.4-16.0) gm/dL Hct 43.4 (34.0-46.0) % Coagulation 03/11/20 Range/Units 21:33 INR 0.9 (<1.2) Result Diagrams: 03/11/20 21:33 03/12/20 05:46 - Diagnostic results Ankle/Foot x-ray: report reviewed, image reviewed Assessment and Plan (1) Trimalleolar fracture of right ankle Narrative/Plan: The patient has been reviewed with Dr. Dugan. She requires surgical intervention including ORIF of her unstable right ankle fracture. She understands the benefits, possible risks and complications of the surgery. She desires to proceed. She has been NPO. Plan will be to proceed with surgical intervention this afternoon, 03/12. She will need placement post op and be non weightbearing. IM has been consulted for medical management. Current Visit: Yes Status: Acute Priority: Medium Code(s): S82.851A - DISPLACED TRIMALLEOLAR FRACTURE OF RIGHT LOWER LEG, INIT SNOMED Code(s): 256709569 Time with Patient: Less than 30
--- NOTE | 2020-03-12 10:34 | XR ---
EXAMINATION TYPE: XR chest 1V DATE OF EXAM: 03/12/2020 COMPARISON: NONE HISTORY: Congestive heart failure, shortness of breath TECHNIQUE: Single frontal view of the chest is obtained. FINDINGS: No evident pneumothorax or pleural effusion. Some minimal patchy densities present at the left lung base greater than right, suspect overlying artifacts are present. Right hemidiaphragm mildl y elevated. Cardiac mediastinal silhouette within normal limits. Aorta is dense. IMPRESSION: Probable basilar atelectasis or scarring, consider follow-up PA and lateral chest x-ray. Pneumonia not excluded.
--- NOTE | 2020-03-12 12:05 | P.HPIM ---
History of Present Illness Patient is a pleasant 29-year-old female had a fall without any syncopal episode found to have fracture of the right ankle trimalleolar fracture. She was dizzy before fall. Did not lose any consciousness. Patient does have history of a what appears like atrial fibrillation and declined anti-correlation the past. Patient follows up with cardiology as an outpatient he denied any history of congestive heart failure patient doesn't have any shortness of breath orthopnea proximal nocturnal dyspnea patient denied any chest pain doesn't have any history of coronary artery disease. Patient denied any fever chills. EKG is showing the atrial flutter. is pretty functional. Patient appears to have chronic kidney disease patient baseline creatinine is around the 1.3-1.5 presently 1.27. Patient is receiving IV fluids and after the chest x-ray which didn't show any pulmonary edema showed some bibasilar atelectasis. Review of Systems REVIEW OF SYSTEMS: CONSTITUTIONAL: No fever, no malaise, no fatigue. HEENT: No recent visual problems or hearing problems. Denied any sore throat. CARDIOVASCULAR: No chest pain, orthopnea, PND, no palpitations, no syncope. PULMONARY: No shortness of breath, no cough, no hemoptysis. GASTROINTESTINAL: No diarrhea, no nausea, no vomiting, no abdominal pain. NEUROLOGICAL: No headaches, no weakness, no numbness. HEMATOLOGICAL: Denies any bleeding or petechiae. GENITOURINARY: Denies any burning micturition, frequency, or urgency. MUSCULOSKELETAL/RHEUMATOLOGICAL: As mentioned in HPI ENDOCRINE: Denies any polyuria or polydipsia. The rest of the 14-point review of systems is negative. Past Medical History Past Medical History: Hyperlipidemia, Hypertension, Thyroid Disorder Additional Past Medical History / Comment(s): internal and external hemmorhoids, states hx of arrythmia and palpitations History of Any Multi-Drug Resistant Organisms: None Reported Past Surgical History: Breast Surgery, Cholecystectomy Additional Past Surgical History / Comment(s): hiatal hernia, breast bx Past Anesthesia/Blood Transfusion Reactions: No Reported Reaction Past Psychological History: No Psychological Hx Reported Smoking Status: Never smoker Past Alcohol Use History: Rare Past Drug Use History: None Reported Medications and Allergies Home Medications Medication Instructions Recorded Confirmed Type Atorvastatin [Lipitor] 40 mg PO HS 11/26/14 03/11/20 History Levothyroxine Sodium [Synthroid] 100 mcg PO HS 11/26/14 03/11/20 History Spironolactone [Aldactone] 25 mg PO BID 11/26/14 03/11/20 History Flecainide Acetate [Tambocor] 150 mg PO BID 02/04/20 03/11/20 History hydroCHLOROthiazide [Hydrodiuril] 25 mg PO DAILY 02/04/20 03/11/20 History Ascorbic Acid [Vitamin C] 500 mg PO DAILY 03/11/20 03/11/20 History Calcium Carbonate [Calcium] 600 mg PO DAILY 03/11/20 03/11/20 History Multivitamins, Thera [Multivitamin 1 tab PO DAILY 03/11/20 03/11/20 History (formulary)] Allergies Allergy/AdvReac Type Severity Reaction Status Date / Time No Known Allergies Allergy Verified 03/11/20 22:16 Physical Exam Vitals: Vital Signs Temp Pulse Pulse Resp BP BP Pulse Ox 03/12/20 08:00 63 16 03/12/20 07:47 99.0 F 63 16 143/70 94 L 03/12/20 02:00 98.2 F 72 20 161/67 97 03/12/20 00:23 98.2 F 63 18 173/77 99 03/11/20 23:25 98.0 F 67 18 156/84 98 03/11/20 23:06 71 18 150/94 96 03/11/20 23:00 74 17 172/97 98 03/11/20 22:56 75 17 171/102 100 03/11/20 20:59 97.9 F 78 18 201/98 98 Intake and Output 03/11/20 03/12/20 03/12/20 22:59 06:59 14:59 Intake Total 0 Balance 0 Intake: Oral 0 Other: Voiding Method Urinal Urinal Weight 104.326 kg 104.326 kg PHYSICAL EXAMINATION: GENERAL: The patient is alert and oriented x3, not in any acute distress. Well developed, well nourished. HEENT: Pupils are round and equally reacting to light. EOMI. No scleral icterus. No conjunctival pallor. Normocephalic, atraumatic. No pharyngeal erythema. No thyromegaly. CARDIOVASCULAR: S1 and S2 present. No murmurs, rubs, or gallops. PULMONARY: Chest is clear to auscultation, no wheezing or crackles. ABDOMEN: Soft, nontender, nondistended, normoactive bowel sounds. No palpable organomegaly. MUSCULOSKELETAL: Right ankle is stabilized and the coverage with his bandage EXTREMITIES: No cyanosis, clubbing, or pedal edema. NEUROLOGICAL: Gross neurological examination did not reveal any focal deficits. SKIN: No rashes. Results CBC & Chem 7: 03/11/20 21:33 03/12/20 05:46 Labs: Abnormal Lab Results - Last 24 Hours (Table) 03/11/20 03/11/20 03/11/20 Range/Units 21:33 21:33 21:33 WBC 11.0 H (3.8-10.6) k/uL Neutrophils # 9.1 H (1.3-7.7) k/uL Lymphocytes # 0.7 L (1.0-4.8) k/uL APTT 21.2 L (22.0-30.0) sec Sodium (137-145) mmol/L BUN (7-17) mg/dL Creatinine (0.52-1.04) mg/dL Glucose (74-99) mg/dL AST (14-36) U/L Total Protein (6.3-8.2) g/dL Albumin (3.5-5.0) g/dL Urine Appearance Cloudy H (Clear) Urine Ketones Trace H (Negative) Ur Leukocyte Esterase Large H (Negative) Urine WBC 30 H (0-5) /hpf Urine Bacteria Rare H (None) /hpf Hyaline Casts 4 H (0-2) /lpf Urine Mucus Rare H (None) /hpf 03/11/20 03/12/20 Range/Units 21:33 05:46 WBC (3.8-10.6) k/uL Neutrophils # (1.3-7.7) k/uL Lymphocytes # (1.0-4.8) k/uL APTT (22.0-30.0) sec Sodium 135 L 135 L (137-145) mmol/L BUN 21 H 19 H (7-17) mg/dL Creatinine 1.32 H 1.27 H (0.52-1.04) mg/dL Glucose 112 H (74-99) mg/dL AST 37 H (14-36) U/L Total Protein 6.2 L (6.3-8.2) g/dL Albumin 3.4 L (3.5-5.0) g/dL Urine Appearance (Clear) Urine Ketones (Negative) Ur Leukocyte Esterase (Negative) Urine WBC (0-5) /hpf Urine Bacteria (None) /hpf Hyaline Casts (0-2) /lpf Urine Mucus (None) /hpf Microbiology - Last 24 Hours (Table) 03/11/20 21:33 Urine Culture - Preliminary Urine,Voided Thrombosis Risk Factor Assmnt - Choose All That Apply Each Factor Represents 1 point: Obesity (BMI >25) Each Risk Factor Represents 3 Points: Age 75 years or older Thrombosis Risk Factor Assessment Total Risk Factor Score: 4 Thrombosis Risk Factor Assessment Level: Moderate Risk Assessment and Plan Plan: -Right ankle fracture: Management of this fracture as orthopedic surgery. Due to prophylaxis as per orthopedic surgery. Regarding pain medications need to be cautious with opiates considering her age. Unfortunately patient cannot take NSAID because of her or kidney function. Preoperative clearance patient is a low to moderate risk for surgery no further testing is necessary at this time. Patient is not in heart failure patient doesn't have any history of heart failure -Possible chronic kidney disease stage II to 3 etiology is probably hypertensive nephrosclerosis patient is receiving IV fluids which will be continued. May be a competent of acute renal failure which is expected to improve with IV fluids because of which I'll leave her on IV fluids -Paroxysmal A. fib patient is presently not in A. fib rate controlled, continue with flecainide she'll be continued. 7 hypertension patient is on hydrochlorothiazide which will be held and will does admit not be beneficial kidney function and possible chronic kidney disease patient is receiving IV fluids will hold off on hydrochlorothiazide as well as Aldactone for now we'll recheck a basic metabolic profile tomorrow -Leukocytosis reactive secondary to fracture -hypothyroidism
[2020-03-12] MEDS ORDERED: FLECAINIDE 50 MG TAB PO STA (12:45)
[2020-03-12] MEDS: SODIUM CHLORIDE 0.9% 1,000 ML IV SCH (13:09)
[2020-03-12] MEDS ORDERED: LACTATED RINGERS 1,000 ML IV ONE ×3 (14:31→17:56)
[2020-03-12] MEDS ORDERED: DEXAMETHASONE SOD PHOSPHATE 4 MG/ML 1 ML VIAL IV ONE (14:38)
[2020-03-12] MEDS ORDERED: diazePAM 5 MG TAB PO PRN (15:53)
[2020-03-12] MEDS ORDERED: traMADol 50 MG TAB PO PRN (15:53)
[2020-03-12] MEDS ORDERED: MAGNESIUM HYDROXIDE 2,400 MG/10 ML CUP PO PRN (15:53)
[2020-03-12] MEDS ORDERED: HYDROcodone/APAP 10-325MG 1 EACH TAB PO PRN (15:53)
[2020-03-12] MEDS ORDERED: HYDROmorphone 0.2 MG/1 ML SYRINGE IVP PRN (15:53)
[2020-03-12] MEDS ORDERED: HYDROmorphone 0.5 MG/0.5 ML SYRINGE IVP PRN ×2 (15:53)
[2020-03-12] MEDS ORDERED: LIDOCAINE 1% INJ 10MG/ML (20 ML MDV) ONE (16:00)
[2020-03-12] MEDS ORDERED: SUCCINYLCHOLINE CHLORIDE 100 MG/5 ML SYR IV ONE (16:00)
[2020-03-12] MEDS ORDERED: ROCURONIUM 10 MG/ML (10 ML VIAL) IV ONE (16:00)
[2020-03-12] MEDS ORDERED: NEOSTIGMINE 1 MG/ML 10 ML VIAL ONE (16:00)
[2020-03-12] MEDS ORDERED: fentaNYL (PF) 50 MCG/ML 2 ML AMP ONE (16:00)
[2020-03-12] MEDS ORDERED: GLYCOPYRROLATE 0.2 MG/ML 2 ML VIAL ONE (16:00)
[2020-03-12] MEDS ORDERED: PROPOFOL 10 MG/ML 20 ML VIAL IV ONE (16:00)
[2020-03-12] MEDS ORDERED: SODIUM CHLORIDE 0.9% 50 ML with ceFAZolin 2,000 MG IV ONE ×2 (16:26)
[2020-03-12] MEDS: HYDROmorphone 1 MG/ML 1 ML SYRINGE IVP ONE ×2 (17:42→18:02)
[2020-03-12 18:00] VITALS: RESP 16
[2020-03-12] MEDS: ASPIRIN 81 MG PO SCH (20:11)
[2020-03-12] MEDS: SPIRONOLACTONE 25 MG TAB PO SCH (20:11)
[2020-03-12] MEDS: FLECAINIDE 50 MG TAB PO SCH (20:11)
[2020-03-12] MEDS ORDERED: hydrALAZINE HCL 20 MG/ML 1 ML VIAL IVP PRN (20:30)
--- NOTE | 2020-03-12 20:33 | OP ---
OPERATIVE REPORT DATE OF PROCEDURE: 03/12/2020 PREOPERATIVE DIAGNOSIS: Right displaced closed bimalleolar ankle fracture. POSTOPERATIVE DIAGNOSIS: Right displaced closed bimalleolar ankle fracture. PROCEDURE PERFORMED: Open reduction, internal fixation, right bimalleolar ankle fracture. SURGEON: Magdiel Dugan M.D. GROUND SERVICES INSTRUCTOR: Skyler Mackey PA-C. ANESTHESIA: General endotracheal. ESTIMATED BLOOD LOSS: 50 mL. TOURNIQUET TIME: 44 minutes at 250 mmHg. COMPLICATIONS: None apparent. DRAINS: None. DISPOSITION: Post-Anesthesia Care Unit. INDICATIONS: Cheri is a very pleasant 79-year-old female who got dizzy and fell at home late last night. She was unable to get up. She was brought to [facility] via ambulance. Workup including x-rays revealed a closed displaced bimalleolar ankle fracture. It was reduced by the ER, and she was placed into appropriate splint and then admitted to my service. Cheri does live by herself. She is an independent ambulator. Recommendation was for open reduction, internal fixation of her right ankle fracture. The risks of the procedure were discussed with her in detail. These risks include but are not limited to risk of infection, nerve damage, bleeding, pain, and a small risk of deep vein thrombosis which could lead to fatal pulmonary embolism. Further risks include failure of the fracture to heal, continued pain in the ankle. There is also a risk of deep infection. All of her questions with regard to the risks were answered to her satisfaction. Appropriate informed consent was obtained. DESCRIPTION OF PROCEDURE: The patient was identified in the preoperative holding area. Surgical site was marked by both the patient and myself. She was given 2 grams of Ancef IV for prophylactic purposes. She was then transported to the operative suite. She was placed supine on the operating room table. General anesthetic was then administered and dosed per the anesthesia department without apparent complication. Prior to bringing her back for surgery, we did check the skin. She had good skin wrinkling. There was a very mild amount of swelling. The skin was deemed amenable to open reduction and internal fixation. A tourniquet was then placed high on the right upper thigh, well padded in preparation for surgery. The patient's right lower extremity than prepped and draped in the usual sterile fashion. Standard surgical pause was undertaken to ensure that we were operating on the correct site and that appropriate preoperative antibiotics had been given. All staff were in agreement and we proceeded. I first proceeded to fix the lateral malleolus. An approximately 10-12 cm incision extending from the tip of the distal fibula proximally in line with the shaft of the femur was marked with a surgical pen. The incision was then made with a 15-blade scalpel. Dissection was carried down sharply to the lateral aspect of the fibula. She had an oblique Wheeler B fracture. This fracture was easily reduced with a reduction clamp. I had a good cortical read. The fracture was taken back out to length. Again this was confirmed with fluoroscopic imaging. I then proceeded with fixation. I utilized a Synthes 8-hole 1/3 tubular plate. This was placed in the lateral cortex of the fibula. Again fluoroscopy was utilized to check that it was of appropriate length. I then proceeded to fix with three 3.5 mm bicortical nonlocking screws proximal to the fracture and two 4.0 mm bicortical cancellous screws distal to the fracture. I was then able to place a 4.0 cancellous screw in a compression mode through from the distal fragment into the proximal fragment across the obliquity of the fracture. This screw also had excellent purchase in bone and served as extra compression at the fracture site. I then proceeded to fix the medial malleolus fracture. An approximate 5 cm curved incision going over the tip of the medial malleolus was then made with a 15-blade scalpel. Dissection was carried down sharply. Significant subcutaneous dissection had already been done. It seemed that this fracture was very close to being an open fracture. The medial malleolus fracture was readily identified. I was able to view the talus through the joint. The talus had no evidence of any cartilage damage. I then irrigated the joint with sterile saline solution with antibiotic added. The fracture was then reduced to the [id number] reduction clamp. Again I had a very good cortical read and it was a near-anatomic reduction. There was a little bit of comminution medially, a small amount of comminution at the most medial aspect of the fracture. I then proceeded to fix the fracture with two 4.0 mm cannulated partially threaded screws. These screws were placed under fluoroscopic guidance. Both screws were 44 mm long. Both screws had excellent purchase in bone and reduced the fracture quite nicely. Final fluoroscopic images were then taken. AP, lateral and mortise views were taken. The ankle mortise had been anatomically reduced. The syndesmosis was checked by stressing with external rotation and there was no widening of the medial clear space. The Cotton test was normal. There was no syndesmotic instability. The wounds were then thoroughly irrigated with sterile saline solution with antibiotic added. Deep tissue was closed with 0 Vicryl interrupted suture. The subcutaneous tissue was closed with 2-0 Vicryl interrupted suture. The skin was closed with stainless steel wilfredo. Sterile compressive dressing was then applied. The patient's right lower extremity was then placed into a well-padded posterior short-leg splint with side stirrups. All sponge and needle counts were deemed correct prior to closure. The patient tolerated the procedure without apparent complication. The tourniquet was deflated prior to closure. The total tourniquet time for the procedure was 44 minutes at 250 mmHg. The patient was transferred to the recovery room in stable condition. MMKIMBERLY / IJN: [id number] /
[2020-03-12] MEDS ORDERED: ATORVASTATIN 40 MG TAB PO SCH (21:00)
[2020-03-12] MEDS ORDERED: LEVOTHYROXINE 100 MCG TAB PO SCH (21:00)
[2020-03-12] MEDS ORDERED: SENNOSIDES-DOCUSATE SODIUM 1 EACH TAB PO SCH (21:00)
[2020-03-12] MEDS: HYDROcodone/APAP 5-325MG 1 EACH TAB PO PRN (21:36)
[2020-03-13] MEDS: SODIUM CHLORIDE 0.9% 1,000 ML IV SCH (04:24)
[2020-03-13] MEDS: HYDROcodone/APAP 5-325MG 1 EACH TAB PO PRN ×2 (06:10→11:26)
[2020-03-13 06:35] LABS: Basophils % (A) 0 %; Eosinophils % (A) 0 %; HCT 41.5 % (34.0-46.0); HGB 13.7 gm/dL (11.4-16.0); Lymphocytes # (A) 1.2 k/uL (1.0-4.8); Lymphocytes % (A) 16 %; MCH 30.5 pg (25.0-35.0); MCHC 32.9 g/dL (31.0-37.0); MCV 92.7 fL (80.0-100.0); Mean Platelet Volume 7.1; Monocytes # (A) 0.6 k/uL (0-1.0); Monocytes % (A) 7 %; Neutrophils # (A) 5.7 k/uL (1.3-7.7); Neutrophils % (A) 74 %; Platelet Count 215 k/uL (150-450); RBC 4.48 m/uL (3.80-5.40); RDW 12.4 % (11.5-15.5); WBC 7.8 k/uL (3.8-10.6)
[2020-03-13] MEDS: SPIRONOLACTONE 25 MG TAB PO SCH (07:53)
[2020-03-13] MEDS: ASPIRIN 81 MG PO SCH (07:53)
[2020-03-13 08:12] VITALS: BP 159/77; PULSE 55; TEMP 99.3
[2020-03-13] MEDS ORDERED: MULTIVITAMINS, THERA 1 EACH TAB PO SCH (09:00)
[2020-03-13] MEDS ORDERED: CALCIUM CARBONATE 500 MG CHEWABLE PO SCH (09:00)
--- NOTE | 2020-03-13 10:28 | CDI ---
Documentation Clarification Form Date: 03/13/2020 10:15:56 AM From: Rona Rueda RN CCDS Admit Date: 03/13/2020 08:38:00 AM Patient Name: Cheri Infante Visit Number: [id number] Discharge Date: ATTENTION: The Clinical Documentation Specialists (CDI) and [facility] Coding Staff appreciate your assistance in clarifying documentation. Please respond to the clarification below the line at the bottom and electronically sign. The CDI & [facility] Coding staff will review the response and follow-up if needed. Please note: Queries are made part of the Legal Health Record. If you have any questions, please contact the author of this message via ITS. Dr. Claire Martínez UTI is documented in the ED Note 03/11 History/Risk Factors: 79-year-old female presents to the ED for right ankle pain after a fall. Medical history: CKD; HTN & A fib Clinical Indicators: Vital Signs 03/11: B/P 201/98; HR 78; Temp 97.9 F Oral; RR 18; SpO2 98% ra WBC 03/11: 11.0 [id number]: Cloudy; Ketones Trace; Leukocyte Esterase Large; Wbc 30; Bacteria Rare; Hyaline casts 4 Urine Culture: Pending Treatment Antibiotics: 03/11 Rocephin Ivpb Q24H Please document the condition that these clinical indicators signify and cause if known: UTI Poa UTI Ruled Out Other, please specify Unable to determine (Last Revision: June 2017) As per my dictation of my dictation doesn't say UTI there is no UTI and there is no need for this query [facility]
[2020-03-13 10:44] LABS: African American GFR (CKD) 61.2 (60.0-200.0); Anion Gap 9.4 mmol/L (4.00-12.00); Carbon Dioxide 23.6 mmol/L (21.6-31.8); Non-African American GFR(CKD) 52.8 (60.0-200.0); Potassium 4.7 mmol/L (3.5-5.5)
[2020-03-13] MEDS: FLECAINIDE 50 MG TAB PO SCH (10:44)
--- NOTE | 2020-03-13 10:56 | P.DS ---
Providers Date of admission: 03/13/20 08:38 Expected date of discharge: 03/13/20 Attending physician: Magdiel Dugan Consults: 03/11/20 23:09 Consult Physician Routine Consulting Provider: Shahab Alcaraz Consult Reason/Comments: Medical Management; UTI; Dehydration Do you want consulting provider notified?: Yes Primary care physician: Shadi Muhammad - Discharge Diagnosis(es) (1) Trimalleolar fracture of right ankle Patient was admitted to the OR on 03/12/20 to undergo ORIF right ankle fracture after suffering a fall at home resulting in fracture dislocation. She desired to proceed with elective surgery after given informed consent. She underwent the above procedure which she tolerated well without complication. Postoperative hospital course has remained without complication. On day of discharge she is afebrile, vital signs stable, labs within acceptable ranges, tolerating by mouth meds and diet, voiding without difficulty, positive flatus, denies abdominal p ain or calf pain, pain is controlled on oral pain medication and has no new complaints. Wound is benign, neurovascular status is intact, calves are soft and nontender, abdomen soft and nontender. Review of systems is negative for numbness, tingling, fever, chills, chest pain, shortness of breath, nausea, vomiting, dizziness, headaches, slurred speech or other. Current Visit: Yes Status: Acute Priority: Medium Procedures: ORIF right ankle fracture Patient Condition at Discharge: Stable Plan - Discharge Summary New Discharge Prescriptions: New Aspirin [Adult Low Dose Aspirin EC] 81 mg PO BID #60 tablet. Docusate [Colace] 100 mg PO BID #60 capsule HYDROcodone/APAP 5-325MG [[place] 5-325] 1 tab PO Q4HR PRN #42 tab PRN Reason: Pain Lisinopril [Prinivil] 5 mg PO DAILY #30 tab Discontinued hydroCHLOROthiazide [Hydrodiuril] 25 mg PO DAILY No Action Spironolactone [Aldactone] 25 mg PO BID Levothyroxine Sodium [Synthroid] 100 mcg PO HS Atorvastatin [Lipitor] 40 mg PO HS Flecainide Acetate [Tambocor] 150 mg PO BID Ascorbic Acid [Vitamin C] 500 mg PO DAILY Multivitamins, Thera [Multivitamin (formulary)] 1 tab PO DAILY Calcium Carbonate [Calcium] 600 mg PO DAILY Discharge Medication List Atorvastatin [Lipitor] 40 mg PO HS 11/26/14 [History] Levothyroxine Sodium [Synthroid] 100 mcg PO HS 11/26/14 [History] Spironolactone [Aldactone] 25 mg PO BID 11/26/14 [History] Flecainide Acetate [Tambocor] 150 mg PO BID 02/04/20 [History] Ascorbic Acid [Vitamin C] 500 mg PO DAILY 03/11/20 [History] Calcium Carbonate [Calcium] 600 mg PO DAILY 03/11/20 [History] Multivitamins, Thera [Multivitamin (formulary)] 1 tab PO DAILY 03/11/20 [History] Aspirin [Adult Low Dose Aspirin EC] 81 mg PO BID #60 tablet.dr 03/13/20 [Rx] Docusate [Colace] 100 mg PO BID #60 capsule 03/13/20 [Rx] HYDROcodone/APAP 5-325MG [[place] 5-325] 1 tab PO Q4HR PRN #42 tab 03/13/20 [Rx] Lisinopril [Prinivil] 5 mg PO DAILY #30 tab 03/13/20 [Rx] Follow up Appointment(s)/Referral(s): Shadi Muhammad MD [Primary Care Provider] - 1-2 days Magdiel Dugan MD [STAFF PHYSICIAN] - 10 Days Patient Instructions/Handouts: ORIF of an Ankle Fracture (DC) Activity/Diet/Wound Care/Special Instructions: Strict non weightbearing right lower extremity maintain splint, keep clean and dry, elevate F/U in office in 7-10 days take meds as directed Discharge Disposition: TRANSFER TO SNF/ECF
--- NOTE | 2020-03-13 13:05 | P.PN ---
Subjective 79-year-old female had a fall without any syncopal episode found to have fracture of the right ankle trimalleolar fracture. She was dizzy before fall. Did not lose any consciousness. Patient does have history of a what appears like atrial fibrillation and declined anti-correlation the past. Patient follows up with cardiology as an outpatient he denied any history of congestive heart failure patient doesn't have any shortness of breath orthopnea proximal nocturnal dyspnea patient denied any chest pain doesn't have any history of coronary artery disease. Patient denied any fever chills. EKG is showing the atrial flutter. is pretty functional. Patient appears to have chronic kidney disease patient baseline creatinine is around the 1.3-1.5 presently 1.27. Patient is receiving IV fluids and after the chest x-ray which didn't show any pulmonary edema showed some bibasilar atelectasis. 03/13/2020 Patient is status post a open reduction internal fixation of the right ankle. Patient is clinically doing well heart rate is bit on the lower side as the nursing staff to cut down on the flecainide today patient can be resumed on her home dose of flecainide can be discharged from medical perspective and believe patient is being discharged today to subacute rehabitation. Patient's blood pressure is bit elevated serum creatinine improved to 1.0 this can you had a flow thiazide patient will be discharged on lisinopril at a lower dose. Constitutional: Denied any fatigue denied any fever. Cardio vascular: denied any chest pain, palpitations Gastrointestinal denied any nausea vomiting Pulmonary: Denied any shortness of breath cough Neurologic denied any new focal deficits All inpatient medications were reviewed and appropriate changes in these medications as dictated in the interval history and assessment and plan. Objective - Vital Signs Vital signs: Vital Signs Temp 99.3 F 03/13/20 07:00 Pulse 55 L 03/13/20 07:00 Resp 16 03/13/20 08:00 BP 159/77 03/13/20 07:00 Pulse Ox 97 03/13/20 07:00 Intake & Output 03/12/20 03/13/20 03/13/20 18:59 06:59 18:59 Intake Total 1275 Output Total 50 850 Balance 1225 -850 Intake: IV 1275 Oral 0 Output: Urine 850 Estimated Blood Loss 50 Other: Voiding Method Urinal Urinal - Exam PHYSICAL EXAMINATION: GENERAL: The patient is alert and oriented x3, not in any acute distress. Well developed, well nourished. HEENT: Pupils are round and equally reacting to light. EOMI. No scleral icterus. No conjunctival pallor. Normocephalic, atraumatic. No pharyngeal erythema. No thyromegaly. CARDIOVASCULAR: S1 and S2 present. No murmurs, rubs, or gallops. PULMONARY: Chest is clear to auscultation, no wheezing or crackles. ABDOMEN: Soft, nontender, nondistended, normoactive bowel sounds. No palpable organomegaly. MUSCULOSKELETAL: Deferred to orthopedic surgery EXTREMITIES: No cyanosis, clubbing, or pedal edema. NEUROLOGICAL: Gross neurological examination did not reveal any focal deficits. SKIN: No rashes. - Labs CBC & Chem 7: 03/13/20 06:20 03/13/20 06:20 Labs: Abnormal Lab Results - Last 24 Hours (Table) 03/13/20 Range/Units 06:20 Est GFR (CKD-EPI)NonAf 52.8 L (60.0-200.0) Microbiology - Last 24 Hours (Table) 03/11/20 21:33 Urine Culture - Preliminary Urine,Voided Assessment and Plan Plan: -Right ankle fracture: Management of this fracture as orthopedic surgery. DVT prophylaxis as per orthopedic surgery. Is clinically doing well is being discharged today -Failure secondary to hydrochlorothiazide which is being discontinued I cannot really say whether patient has chronic kidney disease his patient's creatinine improved at this time. Patient will be discharged on low-dose of lisinopril at a chlorothiazide will be discontinued -Paroxysmal A. fib patient is presently not anticoagulation. Patient in the past appears to have declined anticoagulation. Patient will continue same dose of flecainide 7 hypertension -Leukocytosis reactive secondary to fracture -hypothyroidism
--- NOTE | 2020-03-15 13:08 | FL ---
Fluoroscopy HISTORY: Open reduction internal fixation right ankle 37 seconds fluoroscopy time supplied to the referring clinician. 3 intraoperative C-arm images docum ent the procedure. See dictated report from orthopedic surgery.
--- NOTE | 2020-03-15 13:09 | XR ---
Limited right ankle HISTORY: Fracture 3 intraoperative C-arm images document the procedure.
== END 2020-03-13 14:32 | DRG 493 ==
LOC: EC 20:55 → 4SSUR 23:07 → OBSVTOIN 03-13 08:38
PROVIDERS: ADMIT Orthopaedic Surgery Sports Medicine; ATTEND Orthopaedic Surgery Sports Medicine
PROC: 0QSG04Z Reposition Right Tibia with Internal Fixation Device, Open Approach (ICD-10-PCS; principal; 2020-03-12 07:30)
DX: S82.841A Displaced bimalleolar fracture of right lower leg, initial encounter for closed fracture (principal); N17.9 Acute kidney failure, unspecified; W19.XXXA Unspecified fall, initial encounter; E78.5 Hyperlipidemia, unspecified; E03.9 Hypothyroidism, unspecified; E86.0 Dehydration; I48.0 Paroxysmal atrial fibrillation; I12.9 Hypertensive chronic kidney disease with stage 1 through stage 4 chronic kidney disease, or unspecified chronic kidney disease; N18.30 Chronic kidney disease, stage 3 unspecified; Y92.009 Unspecified place in unspecified non-institutional (private) residence as the place of occurrence of the external cause; Z79.899 Other long term (current) drug therapy; Z79.890 Hormone replacement therapy; Z90.49 Acquired absence of other specified parts of digestive tract; Z98.890 Other specified postprocedural states
CPT/HCPCS: 27818; 36415; 71045; 80048; 80053; 81001; 85025; 85610; 85730; 87086; 93005; 94760; 96361; 96374; 96375; 99285

== ENCOUNTER 2020-04-19 00:13 | Observation (INO) | payer MEDICARE ==
--- NOTE | 2020-04-19 00:34 | ED ---
Weakness HPI - General Chief complaint: Weakness Stated complaint: Seizure Time Seen by Provider: 04/19/20 00:19 Source: patient, EMS, RN notes reviewed, old records reviewed Mode of arrival: EMS Limitations: no limitations - History of Present Illness Initial comments: This is an 79-year-old female DF for evaluation patient develops severe weakness shortness of breath diaphoresis while going to the bathroom tonight. The symptoms persist here in the ER, caregivers did think patient maybe passed out maybe had a seizure. Patient just feels weak dehydrated and not well now MD Complaint: generalized weakness -: days(s) Location: generalized Severity: moderate Severity scale (1-10): 4 Quality: tingling, numbness Consistency: constant Improves with: none, movement Worsens with: none Context: recent illness, history of similar Associated Symptoms: shortness of breath, syncope - Related Data Home Medications Medication Instructions Recorded Confirmed Atorvastatin [Lipitor] 40 mg PO HS 11/26/14 03/11/20 Levothyroxine Sodium [Synthroid] 100 mcg PO HS 11/26/14 03/11/20 Spironolactone [Aldactone] 25 mg PO BID 11/26/14 03/11/20 Flecainide Acetate [Tambocor] 150 mg PO BID 02/04/20 03/11/20 Ascorbic Acid [Vitamin C] 500 mg PO DAILY 03/11/20 03/11/20 Calcium Carbonate [Calcium] 600 mg PO DAILY 03/11/20 03/11/20 Multivitamins, Thera [Multivitamin 1 tab PO DAILY 03/11/20 03/11/20 (formulary)] Previous Rx's Medication Instructions Recorded Aspirin [Adult Low Dose Aspirin EC] 81 mg PO BID #60 tablet.dr 03/13/20 Docusate [Colace] 100 mg PO BID #60 capsule 03/13/20 HYDROcodone/APAP 5-325MG [[place] 1 tab PO Q4HR PRN #42 tab 03/13/20 5-325] Lisinopril [Prinivil] 5 mg PO DAILY #30 tab 03/13/20 Allergies Allergy/AdvReac Type Severity Reaction Status Date / Time No Known Allergies Allergy Verified 04/19/20 00:25 Review of Systems ROS Statement: Those systems with pertinent positive or pertinent negative responses have been documented in the HPI. ROS Other: All systems not noted in ROS Statement are negative. Past Medical History Past Medical History: Atrial Fibrillation, Hyperlipidemia, Hypertension, Thyroid Disorder Additional Past Medical History / Comment(s): internal and external hemmorhoids, states hx of arrythmia and palpitations History of Any Multi-Drug Resistant Organisms: None Reported Past Surgical History: Breast Surgery, Cholecystectomy Additional Past Surgical History / Comment(s): hiatal hernia, breast bx, ankle surgery Past Anesthesia/Blood Transfusion Reactions: No Reported Reaction Past Psychological History: No Psychological Hx Reported Smoking Status: Never smoker Past Alcohol Use History: Rare Past Drug Use History: None Reported General Exam Limitations: no limitations General appearance: alert, anxious, lethargic, in distress Head exam: Present: atraumatic, normocephalic, normal inspection Eye exam: Present: normal appearance, PERRL, EOMI. Absent: scleral icterus, conjunctival injection, periorbital swelling ENT exam: Present: normal exam, mucous membranes moist Neck exam: Present: normal inspection. Absent: tenderness, meningismus, lymphadenopathy Respiratory exam: Present: normal lung sounds bilaterally. Absent: respiratory distress, wheezes, rales, rhonchi, stridor Cardiovascular Exam: Present: regular rate, normal rhythm, normal heart sounds. Absent: systolic murmur, diastolic murmur, rubs, gallop, clicks GI/Abdominal exam: Present: soft, normal bowel sounds. Absent: distended, tenderness, guarding, rebound, rigid Extremities exam: Present: normal inspection, full ROM, normal capillary refill. Absent: tenderness, pedal edema, joint swelling, calf tenderness Back exam: Present: normal inspection Neurological exam: Present: alert, oriented X3, CN II-XII intact Psychiatric exam: Present: normal affect, normal mood Skin exam: Present: warm, dry, intact, normal color. Absent: rash Course Vital Signs 04/19/20 04/19/20 00:16 01:24 Temperature 97.2 F L Pulse Rate 89 81 Respiratory 18 16 Rate Blood Pressure 127/73 133/72 O2 Sat by Pulse 85 L 98 Oximetry - Reevaluation(s) Reevaluation #1: 04/19/20 02:31 Medical record is reviewed Reevaluation #2: 04/19/20 02:31 Patient continued to improve here in the ER Reevaluation #3: 04/19/20 02:31 Patient having no chest pain no shortness breath does have belly pain. - Consultations Consultation #1: Spoke with SARAY to agrees to admit the patient EKG Findings - EKG Comments: EKG Findings:: EKG is sinus rhythm 89 [place] 160 QRS 136 QTc 518 Medical Decision Making - Medical Decision Making 79 female to the ER for near syncopal event, patient presents today for evaluation we will admit this patient for severe near syncopal versus a syncopal event, rule out PE with elevated troponin non-STEMI. - Lab Data Result diagrams: 04/19/20 00:53 04/19/20 00:53 Lab Results 04/19/20 04/19/20 04/19/20 Range/Units 00:53 00:53 00:53 WBC 21.1 H (3.8-10.6) k/uL RBC 4.65 (3.80-5.40) m/uL Hgb 14.2 (11.4-16.0) gm/dL Hct 42.4 (34.0-46.0) % MCV 91.1 (80.0-100.0) fL MCH 30.5 (25.0-35.0) pg MCHC 33.4 (31.0-37.0) g/dL RDW 13.1 (11.5-15.5) % Plt Count 226 (150-450) k/uL MPV 7.1 Neutrophils % 78 % Lymphocytes % 15 % Monocytes % 4 % Eosinophils % 1 % Basophils % 1 % Neutrophils # 16.5 H (1.3-7.7) k/uL Lymphocytes # 3.1 (1.0-4.8) k/uL Monocytes # 0.8 (0-1.0) k/uL Eosinophils # 0.3 (0-0.7) k/uL Basophils # 0.1 (0-0.2) k/uL PT 10.5 (9.0-12.0) sec INR 1.0 (<1.2) APTT 20.8 L (22.0-30.0) sec D-Dimer 28.84 H (<0.60) mg/L FEU Sodium 133 L (137-145) mmol/L Potassium 3.8 (3.5-5.1) mmol/L Chloride 97 L (98-107) mmol/L Carbon Dioxide 25 (22-30) mmol/L Anion Gap 11 mmol/L BUN 25 H (7-17) mg/dL Creatinine 1.52 H (0.52-1.04) mg/dL Est GFR (CKD-EPI)AfAm 37 (>60 ml/min/1.73 sqM) Est GFR (CKD-EPI)NonAf 32 (>60 ml/min/1.73 sqM) Glucose 164 H (74-99) mg/dL Plasma Lactic Acid Jr (0.7-2.0) mmol/L Calcium 10.2 (8.4-10.2) mg/dL Phosphorus 4.2 (2.5-4.5) mg/dL Magnesium 1.7 (1.6-2.3) mg/dL Total Bilirubin 1.1 (0.2-1.3) mg/dL AST 29 (14-36) U/L ALT 27 (4-34) U/L Alkaline Phosphatase 126 (38-126) U/L Creatine Kinase 20 L (30-135) U/L Troponin I (0.000-0.034) ng/mL NT-Pro-B Natriuret Pep pg/mL Total Protein 7.1 (6.3-8.2) g/dL Albumin 3.8 (3.5-5.0) g/dL TSH 3.410 (0.465-4.680) mIU/L 04/19/20 04/19/20 04/19/20 Range/Units 00:53 00:53 00:53 WBC (3.8-10.6) k/uL RBC (3.80-5.40) m/uL Hgb (11.4-16.0) gm/dL Hct (34.0-46.0) % MCV (80.0-100.0) fL MCH (25.0-35.0) pg MCHC (31.0-37.0) g/dL RDW (11.5-15.5) % Plt Count (150-450) k/uL MPV Neutrophils % % Lymphocytes % % Monocytes % % Eosinophils % % Basophils % % Neutrophils # (1.3-7.7) k/uL Lymphocytes # (1.0-4.8) k/uL Monocytes # (0-1.0) k/uL Eosinophils # (0-0.7) k/uL Basophils # (0-0.2) k/uL PT (9.0-12.0) sec INR (<1.2) APTT (22.0-30.0) sec D-Dimer (<0.60) mg/L FEU Sodium (137-145) mmol/L Potassium (3.5-5.1) mmol/L Chloride (98-107) mmol/L Carbon Dioxide (22-30) mmol/L Anion Gap mmol/L BUN (7-17) mg/dL Creatinine (0.52-1.04) mg/dL Est GFR (CKD-EPI)AfAm (>60 ml/min/1.73 sqM) Est GFR (CKD-EPI)NonAf (>60 ml/min/1.73 sqM) Glucose (74-99) mg/dL Plasma Lactic Acid Jr 2.7 H* (0.7-2.0) mmol/L Calcium (8.4-10.2) mg/dL Phosphorus (2.5-4.5) mg/dL Magnesium (1.6-2.3) mg/dL Total Bilirubin (0.2-1.3) mg/dL AST (14-36) U/L ALT (4-34) U/L Alkaline Phosphatase (38-126) U/L Creatine Kinase (30-135) U/L Troponin I 0.143 H* (0.000-0.034) ng/mL NT-Pro-B Natriuret Pep 87 pg/mL Total Protein (6.3-8.2) g/dL Albumin (3.5-5.0) g/dL TSH (0.465-4.680) mIU/L - Radiology Data Radiology results: report reviewed (Chest x-rays negative for acute disease, CT brain is negative for acute disease), image reviewed Critical Care Time Critical Care Time: Yes Total Critical Care Time: 31 Disposition Clinical Impression: Dehydration, NSTEMI (non-ST elevated myocardial infarction), Near syncope, Weakness Disposition: ADMITTED IP TO THIS [facility] Condition: Serious Is patient prescribed a controlled substance at d/c from ED?: No Referrals: Shadi Muhammad MD [Primary Care Provider] - 1-2 days
[2020-04-19] MEDS ORDERED: SODIUM CHLORIDE 0.9% 1,000 ML IV STA (00:51)
[2020-04-19 01:00] LABS: Basophils # (A) 0.1 k/uL (0-0.2); Basophils % (A) 1 %; Eosinophils # (A) 0.3 k/uL (0-0.7); Eosinophils % (A) 1 %; HCT 42.4 % (34.0-46.0); HGB 14.2 gm/dL (11.4-16.0); Lymphocytes # (A) 3.1 k/uL (1.0-4.8); Lymphocytes % (A) 15 %; MCH 30.5 pg (25.0-35.0); MCHC 33.4 g/dL (31.0-37.0); MCV 91.1 fL (80.0-100.0); Mean Platelet Volume 7.1; Monocytes # (A) 0.8 k/uL (0-1.0); Monocytes % (A) 4 %; Neutrophils # (A) 16.5 k/uL (1.3-7.7); Neutrophils % (A) 78 %; Platelet Count 226 k/uL (150-450); RBC 4.65 m/uL (3.80-5.40); RDW 13.1 % (11.5-15.5); WBC 21.1 k/uL (3.8-10.6)
[2020-04-19 01:14] LABS: Albumin 3.8 g/dL (3.5-5.0); Calcium 10.2 mg/dL (8.4-10.2); Magnesium 1.7 mg/dL (1.6-2.3); Phosphorus 4.2 mg/dL (2.5-4.5); Potassium 3.8 mmol/L (3.5-5.1); Total Bilirubin 1.1 mg/dL (0.2-1.3); Total Protein 7.1 g/dL (6.3-8.2)
[2020-04-19 01:23] LABS: Partial Thromboplastin Time 20.8 sec (22.0-30.0); Prothrombin Time 10.5 sec (9.0-12.0)
[2020-04-19 01:31] LABS: D-Dimer 28.84 mg/L FEU (<0.60)
--- NOTE | 2020-04-19 01:46 | XR ---
EXAM: XR Chest, 2 Views CLINICAL HISTORY: ITS.REASON XR Reason: sob TECHNIQUE: Frontal and lateral views of the chest. COMPARISON: CXR 03/12/20 FINDINGS: Lungs: Redemonstrated mild bibasilar reticulations, likely atelectasis/scarring. Pleural space: Unremarkable. No pleural effusion or pneumothorax. Heart: Unremarkable. No cardiomegaly or pulmonary vascular congestion. Mediastinum: Unremarkable. Bones/joints: Unremarkable. IMPRESSION: Bibasilar atelectasis or scarring.
[2020-04-19] MEDS ORDERED: HEPARIN SODIUM,PORCINE 10,000 UNIT/ML 1 ML VIAL IV ONE (01:49)
[2020-04-19] MEDS ORDERED: HEPARIN SODIUM,PORCINE 5,000 UNIT/ML 1 ML VIAL IV PRN (01:49)
--- NOTE | 2020-04-19 01:58 | CT ---
EXAM: CT Head Without Intravenous Contrast CLINICAL HISTORY: ITS.REASON CT Reason: pain TECHNIQUE: Axial computed tomography images of the head/brain without intravenous contrast. CTDI is 49.27 mGy and DLP is 1068.40 mGy-cm. This CT exam was performed using one or more of the following dose reduction techniques: automated exposure control, adjustment of the mA and/or kV according to patient size, and/or use of iterative reconstruction technique. COMPARISON: No relevant prior studies available. FINDINGS: Brain: There is no evidence of acute intracranial hemorrhage, mass- effect, or edema. Haji-white matter differentiation is preserved. There are dystrophic calcifications in the left periventricular cerebral white matter. There is generalized parenchymal volume loss. Ventricles: No hydrocephalus. Cavum septum pellucidum, a developmental variant. Bones/joints: Unremarkable. No acute fracture. Soft tissues: Unremarkable. Sinuses: Unremarkable as visualized. No acute sinusitis. Mastoid air cells: Unremarkable as visualized. No mastoid effusion. IMPRESSION: No evidence of acute intracranial process.
[2020-04-19] MEDS ORDERED: NITROGLYCERIN SL TABS 0.4 MG TAB SUBLINGUAL PRN (02:28)
[2020-04-19] MEDS ORDERED: MORPHINE SULFATE 4 MG/ML SYRINGE IV PRN (02:28)
[2020-04-19] MEDS ORDERED: ASPIRIN 81 MG PO STA (02:28)
[2020-04-19] MEDS: HEPARIN SOD,PORK IN 0.45% NACL 25,000 UNIT in 0.45% NACL 1 250ML.BAG IV SCH ×2 (02:50→16:36)
[2020-04-19] MEDS: SODIUM CHLORIDE 0.9% 1,000 ML IV SCH ×3 (02:53→23:03)
[2020-04-19 06:03] LABS: Appearance,Urine Cloudy (Clear); Bacteria,Urine Rare /hpf; Bilirubin,Urine Negative (Negative); Blood,Urine Small (Negative); Color,Urine Yellow; Glucose,Urine (UA) Negative (Negative); Hyaline Casts,Urine 4 /lpf (0-2); Ketones,Urine Negative (Negative); Leukocyte Esterase,Urine Moderate (Negative); Mucus,Urine Rare /hpf; Nitrite,Urine Negative (Negative); PH, Urine 5.5 (5.0-8.0); Protein,Urine Trace (Negative); RBC,Urine 4 /hpf (0-5); Specific Gravity,Urine 1.014 (1.001-1.035); Squamous Epithelial Cell,Urine 3 /hpf (0-4); Urobilinogen,Urine <2.0 mg/dL (<2.0); WBC,Urine 8 /hpf (0-5)
--- NOTE | 2020-04-19 07:52 | NM ---
EXAMINATION TYPE: NM pul vent and perfuse DATE OF EXAM: 04/19/2020 COMPARISON: Chest x-ray 04/19/2020 HISTORY: Shortness of breath TECHNIQUE: Utilizing inhalation of 68.4 mCi Tc 99m DTPA aerosol and intravenous injection of 5.3 mCi of Tc 99m MAA, ventilation and perfusion images are acquired post injection in multiple projections. FINDINGS: Patchy matched multisegment defects on ventilation and perfusion imaging present throughout the lungs . IMPRESSION: Low probability for pulmonary embolism
--- NOTE | 2020-04-19 08:38 | US ---
EXAMINATION TYPE: US venous doppler duplex LE BI DATE OF EXAM: 04/19/2020 8:24 AM COMPARISON: US 2019 CLINICAL HISTORY: DVT. Patient on blood thinners SIDE PERFORMED: Bilateral TECHNIQUE: The lower extremity deep venous system is examined utilizing real time linear array sonog sanjay with graded compression, doppler sonography and color-flow sonography. VESSELS IMAGED: Common Femoral Vein Deep Femoral Vein Greater Saphenous Vein * Femoral Vein Popliteal Vein Small Saphenous Vein * Proximal Calf Veins (* superficial vessels) Right leg shows deep veins to be normally compressible, no abnormal venous waveform or color flow. Le ft popliteal vein shows low level internal echoes with lack of compressibility and normal color-flow, some laminar echoes are present with some thready flow seen in a portion of the vein Right Leg: Appears negative for DVT Left Leg: Positive for DVT mid popliteal vein through proximal calf veins IMPRESSION: Deep venous thrombosis left leg A Red level critical message alert has been initiated for Shahab Alcaraz MD via the [employer] System on 04/19/2020 8:35 AM. This message alert has been sent to Shahab Alcaraz MD via the preferences provided by the clinician for the receipt of Radiology Critical Findings. Message ID [id number].
--- NOTE | 2020-04-19 10:43 | P.HPIM ---
History of Present Illness 79-year-old pleasant female came in with after a syncopal episode. Patient had a bowel movement after that patient try to get up and became lightheaded and decide on her chair lost consciousness briefly without any bowel or bladder incontinence. Patient is significantly dehydrated has not been eating or drinking very well patient had a recent fall after which patient is a fracture in the right leg. Patient the had a surgical intervention on that leg and found to have DVT in the proximal calf veins. And popliteal veins. Patient is already on IV heparin. Patient has mildly elevated troponins patient is dehydrated clinically and patient has a low sodium and acute renal failure secondary to that. Patient will undergo an echocardiogram today. Patient does have history of atrial fibrillation and for for which patient is on Felcanaide doesn't have any history of heart failure patient is on IV fluids at this time. Patient VQ scan is negative or low probability for pulmonary embolism Review of Systems REVIEW OF SYSTEMS: CONSTITUTIONAL: No fever, no malaise, no fatigue. HEENT: No recent visual problems or hearing problems. Denied any sore throat. CARDIOVASCULAR: No chest pain, orthopnea, PND, no palpitations. PULMONARY: No shortness of breath, no cough, no hemoptysis. GASTROINTESTINAL: No diarrhea, no nausea, no vomiting, no abdominal pain. NEUROLOGICAL: No headaches, no weakness, no numbness. HEMATOLOGICAL: Denies any bleeding or petechiae. GENITOURINARY: Denies any burning micturition, frequency, or urgency. MUSCULOSKELETAL/RHEUMATOLOGICAL: Denies any joint pain, swelling, or any muscle pain. ENDOCRINE: Denies any polyuria or polydipsia. The rest of the 14-point review of systems is negative. Past Medical History Past Medical History: Atrial Fibrillation, Hyperlipidemia, Hypertension, Thyroid Disorder Additional Past Medical History / Comment(s): internal and external hemmorhoids, states hx of arrythmia and palpitations History of Any Multi-Drug Resistant Organisms: None Reported Past Surgical History: Breast Surgery, Cholecystectomy Additional Past Surgical History / Comment(s): hiatal hernia, breast bx, ankle surgery Past Anesthesia/Blood Transfusion Reactions: No Reported Reaction Past Psychological History: No Psychological Hx Reported Smoking Status: Never smoker Past Alcohol Use History: Rare Past Drug Use History: None Reported Medications and Allergies Home Medications Medication Instructions Recorded Confirmed Type Atorvastatin [Lipitor] 40 mg PO HS 11/26/14 04/19/20 History Levothyroxine Sodium [Synthroid] 100 mcg PO HS 11/26/14 04/19/20 History Spironolactone [Aldactone] 25 mg PO BID 11/26/14 04/19/20 History Flecainide Acetate [Tambocor] 150 mg PO BID 02/04/20 04/19/20 History Ascorbic Acid [Vitamin C] 500 mg PO DAILY 03/11/20 04/19/20 History Calcium Carbonate [Calcium] 600 mg PO DAILY 03/11/20 04/19/20 History Multivitamins, Thera [Multivitamin 1 tab PO DAILY 03/11/20 04/19/20 History (formulary)] Docusate [Colace] 100 mg PO BID #60 capsule 03/13/20 04/19/20 Rx Lisinopril [Prinivil] 10 mg PO DAILY 04/19/20 04/19/20 History hydroCHLOROthiazide [Hydrodiuril] 25 mg PO DAILY 04/19/20 04/19/20 History Allergies Allergy/AdvReac Type Severity Reaction Status Date / Time No Known Allergies Allergy Verified 04/19/20 08:19 Physical Exam Vitals: Vital Signs Temp Pulse Pulse Resp BP BP Pulse Ox 04/19/20 08:00 97.4 F L 73 20 152/75 97 04/19/20 04:00 97.6 F 82 16 138/83 96 04/19/20 03:11 88 16 157/78 99 04/19/20 01:24 81 16 133/72 98 04/19/20 00:16 97.2 F L 89 18 127/73 85 L Intake and Output 04/18/20 04/19/20 04/19/20 22:59 06:59 14:59 Intake Total 176.384 Output Total 300 Balance -300 176.384 Intake: Intake, IV Titration 116.384 Amount Heparin Sod,Pork in 0.45% 116.384 NaCl 25,000 unit In 0.45 % NaCl 1 250ml.bag @ 18 UNITS/KG/HR 18.044 mls/hr IV .[id number] [facility] Rx#: [id number] Oral 60 Output: Urine 300 Other: Voiding Method Bedside Commode Weight 108 kg PHYSICAL EXAMINATION: GENERAL: The patient is alert and oriented x3, not in any acute distress. Obese HEENT: Pupils are round and equally reacting to light. EOMI. No scleral icterus. No conjunctival pallor. Normocephalic, atraumatic. No pharyngeal erythema. No thyromegaly. CARDIOVASCULAR: S1 and S2 present. No murmurs, rubs, or gallops. PULMONARY: Chest is clear to auscultation, no wheezing or crackles. ABDOMEN: Soft, nontender, nondistended, normoactive bowel sounds. No palpable organomegaly. MUSCULOSKELETAL: No joint swelling or deformity. EXTREMITIES: No cyanosis, clubbing, edema in the left leg and patient has a cast to the right leg. NEUROLOGICAL: Gross neurological examination did not reveal any focal deficits. SKIN: No rashes. Results CBC & Chem 7: 04/19/20 00:53 04/19/20 00:53 Labs: Abnormal Lab Results - Last 24 Hours (Table) 04/19/20 04/19/20 04/19/20 Range/Units 00:53 00:53 00:53 WBC 21.1 H (3.8-10.6) k/uL Neutrophils # 16.5 H (1.3-7.7) k/uL APTT 20.8 L (22.0-30.0) sec D-Dimer 28.84 H (<0.60) mg/L FEU Sodium (137-145) mmol/L Chloride (98-107) mmol/L BUN (7-17) mg/dL Creatinine (0.52-1.04) mg/dL Glucose (74-99) mg/dL Plasma Lactic Acid Jr (0.7-2.0) mmol/L Creatine Kinase (30-135) U/L Troponin I (0.000-0.034) ng/mL Urine Appearance Cloudy H (Clear) Urine Protein Trace H (Negative) Urine Blood Small H (Negative) Ur Leukocyte Esterase Moderate H (Negative) Urine WBC 8 H (0-5) /hpf Urine Bacteria Rare H (None) /hpf Hyaline Casts 4 H (0-2) /lpf Urine Mucus Rare H (None) /hpf 04/19/20 04/19/20 04/19/20 Range/Units 00:53 00:53 00:53 WBC (3.8-10.6) k/uL Neutrophils # (1.3-7.7) k/uL APTT (22.0-30.0) sec D-Dimer (<0.60) mg/L FEU Sodium 133 L (137-145) mmol/L Chloride 97 L (98-107) mmol/L BUN 25 H (7-17) mg/dL Creatinine 1.52 H (0.52-1.04) mg/dL Glucose 164 H (74-99) mg/dL Plasma Lactic Acid Jr 2.7 H* (0.7-2.0) mmol/L Creatine Kinase 20 L (30-135) U/L Troponin I 0.143 H* (0.000-0.034) ng/mL Urine Appearance (Clear) Urine Protein (Negative) Urine Blood (Negative) Ur Leukocyte Esterase (Negative) Urine WBC (0-5) /hpf Urine Bacteria (None) /hpf Hyaline Casts (0-2) /lpf Urine Mucus (None) /hpf 04/19/20 04/19/20 04/19/20 Range/Units 03:30 03:30 07:59 WBC (3.8-10.6) k/uL Neutrophils # (1.3-7.7) k/uL APTT (22.0-30.0) sec D-Dimer (<0.60) mg/L FEU Sodium (137-145) mmol/L Chloride (98-107) mmol/L BUN (7-17) mg/dL Creatinine (0.52-1.04) mg/dL Glucose (74-99) mg/dL Plasma Lactic Acid Jr 2.2 H* (0.7-2.0) mmol/L Creatine Kinase (30-135) U/L Troponin I 0.667 H* 0.826 H* (0.000-0.034) ng/mL Urine Appearance (Clear) Urine Protein (Negative) Urine Blood (Negative) Ur Leukocyte Esterase (Negative) Urine WBC (0-5) /hpf Urine Bacteria (None) /hpf Hyaline Casts (0-2) /lpf Urine Mucus (None) /hpf 04/19/20 04/19/20 Range/Units 07:59 07:59 WBC (3.8-10.6) k/uL Neutrophils # (1.3-7.7) k/uL APTT 77.5 H (22.0-30.0) sec D-Dimer (<0.60) mg/L FEU Sodium (137-145) mmol/L Chloride (98-107) mmol/L BUN (7-17) mg/dL Creatinine (0.52-1.04) mg/dL Glucose (74-99) mg/dL Plasma Lactic Acid Jr 2.3 H* (0.7-2.0) mmol/L Creatine Kinase (30-135) U/L Troponin I (0.000-0.034) ng/mL Urine Appearance (Clear) Urine Protein (Negative) Urine Blood (Negative) Ur Leukocyte Esterase (Negative) Urine WBC (0-5) /hpf Urine Bacteria (None) /hpf Hyaline Casts (0-2) /lpf Urine Mucus (None) /hpf Assessment and Plan Plan: -Syncope: Secondary to dehydration and intravascular volume depletion secondary to the poor by mouth intake. Hold off on hydrochlorothiazide, continue with IV fluids. Hold off on lisinopril. -acute renal failure: Hold off on diuretics and lisinopril because of above- mentioned reasons -Leukocytosis reactive Hypovolemic hyponatremia expected to improve with IV fluids -Left leg DVT patient is on heparin at this time IV will be transitioned Eliquis tomorrow.. -Elevated troponin secondary to renal failure -Atrial fibrillation presently rate controlled regimen her home medications -hyperthyroidism
[2020-04-19] MEDS: FLECAINIDE 50 MG TAB PO SCH ×2 (11:20→20:39)
--- NOTE | 2020-04-19 11:44 | P.CRDCN ---
History of Present Illness Consult date: 04/19/20 Requesting physician: Shahab Alcaraz Consult reason: sycope Chief complaint: Syncope History of present illness: This is a pleasant 79-year-old female who follows with Dr. Robbins in the office. She has had a prior history of atrial fibrillation, not on anticoagulation, remaining in normal sinus rhythm, history of hypertension, hyperlipidemia, hypothyroidism. Patient presents to the hospital on this occasion with syncope. According to the patient, she had got up to go and have a bowel movement, she did feel quite lightheaded at that time, shortly thereafter she stood up, went and sat in a chair and again became very dizzy, she thinks she did lose consciousness for a brief period of time. Patient has been significantly dehydrated and not eating and drinking enough at home. She also had a recent ankle fracture for which the patient underwent surgery in February. Blood pressure 152/70 with a heart rate in the 70s, 97% on room air. White blood cell count 21.1, hemoglobin 14.2, platelet count 226. Sodium 133, potassium 3.8, BUN 25, creatinine 1.5, lactic acid 2.7, 2.2, 2.3. Opponents 0.14, 0.66, 0.82. Vargas virus not detected. Positive UTI. D-dimer 28.8. Ini tial chest x-ray showed bibasilar atelectasis. CAT scan of the brain was performed which did not reveal any evidence of acute intracranial process. EKG on presentation here showed a normal sinus rhythm with right axis deviation, nonspecific ST-T wave changes. VQ scan was performed which was low probability for pulmonary embolism. Bilateral lower extremity venous duplex study was performed which revealed positive DVT in the mid popliteal vein of the left leg. Patient has been initiated on IV heparin for this. At the time of my examination this morning, patient feels well, no dizziness or lightheadedness, no chest discomfort, and her breathing overall is stable. Past Medical History Past Medical History: Atrial Fibrillation, Hyperlipidemia, Hypertension, Thyroid Disorder Additional Past Medical History / Comment(s): internal and external hemmorhoids, states hx of arrythmia and palpitations History of Any Multi-Drug Resistant Organisms: None Reported Past Surgical History: Breast Surgery, Cholecystectomy Additional Past Surgical History / Comment(s): hiatal hernia, breast bx, ankle surgery Past Anesthesia/Blood Transfusion Reactions: No Reported Reaction Past Psychological History: No Psychological Hx Reported Smoking Status: Never smoker Past Alcohol Use History: Rare Past Drug Use History: None Reported Medications and Allergies Home Medications Medication Instructions Recorded Confirmed Type Atorvastatin [Lipitor] 40 mg PO HS 11/26/14 04/19/20 History Levothyroxine Sodium [Synthroid] 100 mcg PO HS 11/26/14 04/19/20 History Spironolactone [Aldactone] 25 mg PO BID 11/26/14 04/19/20 History Flecainide Acetate [Tambocor] 150 mg PO BID 02/04/20 04/19/20 History Ascorbic Acid [Vitamin C] 500 mg PO DAILY 03/11/20 04/19/20 History Calcium Carbonate [Calcium] 600 mg PO DAILY 03/11/20 04/19/20 History Multivitamins, Thera [Multivitamin 1 tab PO DAILY 03/11/20 04/19/20 History (formulary)] Docusate [Colace] 100 mg PO BID #60 capsule 03/13/20 04/19/20 Rx Lisinopril [Prinivil] 10 mg PO DAILY 04/19/20 04/19/20 History hydroCHLOROthiazide [Hydrodiuril] 25 mg PO DAILY 04/19/20 04/19/20 History Allergies Allergy/AdvReac Type Severity Reaction Status Date / Time No Known Allergies Allergy Verified 04/19/20 08:19 Physical Exam Vitals: Vital Signs Temp Pulse Pulse Resp BP BP Pulse Ox 04/19/20 08:00 97.4 F L 73 20 152/75 97 04/19/20 04:00 97.6 F 82 16 138/83 96 04/19/20 03:11 88 16 157/78 99 04/19/20 01:24 81 16 133/72 98 04/19/20 00:16 97.2 F L 89 18 127/73 85 L Intake and Output 04/18/20 04/19/20 04/19/20 22:59 06:59 14:59 Intake Total 176.384 Output Total 300 Balance -300 176.384 Intake: Intake, IV Titration 116.384 Amount Heparin Sod,Pork in 0.45% 116.384 NaCl 25,000 unit In 0.45 % NaCl 1 250ml.bag @ 18 UNITS/KG/HR 18.044 mls/hr IV .[id number] [facility] Rx#: [id number] Oral 60 Output: Urine 300 Other: Voiding Method Bedside Commode Weight 108 kg PHYSICAL EXAMINATION: GENERAL: 79-year-old female in no acute distress at the time of my examination HEENT: Head is atraumatic, normocephalic. Pupils equal, round. Sclera anicteric. Conjunctiva are clear. Mucous membranes of the mouth are moist. Neck is supple. There is no elevated jugular venous pressure. No carotid bruit is heard. HEART EXAMINATION: Heart S1, S2 normal. No murmur or gallop heard. CHEST EXAMINATION: Lungs are clear to auscultation and precussion. No chest wall tenderness is noted on palpation or with deep breathing. ABDOMEN: Soft, nontender. Bowel sounds are heard. No organomegaly noted. EXTREMITIES: 2+ peripheral pulses with no evidence of peripheral edema and no calf tenderness noted. Patient does have a cast to her right lower extremity NEUROLOGIC patient is awake, alert and oriented 3 . . Results 04/19/20 00:53 04/19/20 00:53 Cardiac Enzymes 04/19/20 04/19/20 04/19/20 Range/Units 00:53 00:53 03:30 AST 29 (14-36) U/L Troponin I 0.143 H* 0.667 H* (0.000-0.034) ng/mL 04/19/20 Range/Units 07:59 AST (14-36) U/L Troponin I 0.826 H* (0.000-0.034) ng/mL Coagulation 04/19/20 04/19/20 Range/Units 00:53 07:59 PT 10.5 (9.0-12.0) sec APTT 20.8 L 77.5 H (22.0-30.0) sec CBC 04/19/20 Range/Units 00:53 WBC 21.1 H (3.8-10.6) k/uL RBC 4.65 (3.80-5.40) m/uL Hgb 14.2 (11.4-16.0) gm/dL Hct 42.4 (34.0-46.0) % Plt Count 226 (150-450) k/uL Comprehensive Metabolic Panel 04/19/20 Range/Units 00:53 Sodium 133 L (137-145) mmol/L Potassium 3.8 (3.5-5.1) mmol/L Chloride 97 L (98-107) mmol/L Carbon Dioxide 25 (22-30) mmol/L BUN 25 H (7-17) mg/dL Creatinine 1.52 H (0.52-1.04) mg/dL Glucose 164 H (74-99) mg/dL Calcium 10.2 (8.4-10.2) mg/dL AST 29 (14-36) U/L ALT 27 (4-34) U/L Alkaline Phosphatase 126 (38-126) U/L Total Protein 7.1 (6.3-8.2) g/dL Albumin 3.8 (3.5-5.0) g/dL Current Medications Generic Name Dose Route Start Last Admin Trade Name Freq PRN Reason Stop Dose Admin Aspirin 325 mg 04/20/20 09:00 Aspirin 325 Mg Tab PO DAILY [facility] Atorvastatin Calcium 40 mg 04/19/20 21:00 Atorvastatin 40 Mg Tab PO HS [facility] Docusate Sodium 100 mg 04/19/20 21:00 Docusate 100 Mg Cap PO BID [facility] Flecainide Acetate 150 mg 04/19/20 10:45 04/19/20 11:20 Flecainide 50 Mg Tab PO 150 mg BID [facility]U Administration Heparin Sodium (Porcine) 0 unit 04/19/20 01:49 Heparin Sodium,Porcine 5,000 Unit/Ml 1 Ml Vial IV PER PROTOCOL PRN Low PTT Protocol Heparin Sodium/Sodium Chloride 250 mls @ 18.044 mls/hr 04/19/20 02:00 04/19/20 09:17 25,000 unit/ Sodium Chloride IV 16 units/kg/hr .[id number] [facility] 16.039 mls/hr Titration Protocol 18 UNITS/KG/HR Sodium Chloride 1,000 mls @ 100 mls/hr 04/19/20 02:30 04/19/20 02:53 Saline 0.9% IV 100 mls/hr .Q10H [facility] Administration Levothyroxine Sodium 100 mcg 04/19/20 21:00 Levothyroxine 100 Mcg Tab PO HS [facility]U Morphine Sulfate 4 mg 04/19/20 02:28 Morphine Sulfate 4 Mg/Ml Syringe IV Q4HR PRN Chest Pain Nitroglycerin 0.4 mg 04/19/20 02:28 Nitroglycerin Sl Tabs 0.4 Mg Tab SUBLINGUAL Q5M PRN Chest Pain Intake and Output 04/18/20 04/19/20 04/19/20 22:59 06:59 14:59 Intake Total 176.384 Output Total 300 Balance -300 176.384 Intake: Intake, IV Titration 116.384 Amount Heparin Sod,Pork in 0.45% 116.384 NaCl 25,000 unit In 0.45 % NaCl 1 250ml.bag @ 18 UNITS/KG/HR 18.044 mls/hr IV .[id number] [facility] Rx#: [id number] Oral 60 Output: Urine 300 Other: Voiding Method Bedside Commode Weight 108 kg 04/19/20 00:53 04/19/20 00:53 EKG Interpretations (text) EKG shows a normal sinus rhythm with no acute changes. Assessment and Plan Plan: Assessment and plan #1 syncope, could be secondary to dehydration, patient's VQ scan was negative for a pulmonary embolism. We will check orthostatic heart rate and blood pressure every shift #2 acute renal failure, likely secondary to dehydration, lisinopril placed on hold #3 leukocytosis #4 positive DVT in the left lower extremity, patient currently on IV heparin, will be transitioned over to Eliquis #5 elevated troponin, could be secondary to renal failure and evidence of DVT #6 history of prior atrial fibrillation, remaining in normal sinus rhythm Plan We will obtain an echocardiogram with Doppler study. Decrease the aspirin 81 mg daily, continue Lipitor, Tambocor, Synthroid. Check orthostatic heart rate and blood pressure every shift. Monitor for any significant arrhythmias. Hydrate the patient. Hold lisinopril at this time. DNP note has been reviewed, I agree with a documented findings and plan of care. Patient was seen and examined.
[2020-04-19] MEDS ORDERED: ONDANSETRON 4 MG/2 ML VIAL IVP PRN (12:55)
[2020-04-19] MEDS: PANTOPRAZOLE 40 MG/10 ML VIAL IVP SCH ×2 (13:54→20:39)
[2020-04-19] MEDS: ATORVASTATIN 40 MG TAB PO SCH (20:39)
[2020-04-19] MEDS: DOCUSATE 100 MG CAP PO SCH (20:39)
[2020-04-19] MEDS: LEVOTHYROXINE 100 MCG TAB PO SCH (20:39)
[2020-04-20 05:38] LABS: Basophils # (A) 0.1 k/uL (0-0.2); Basophils % (A) 1 %; Eosinophils # (A) 0.4 k/uL (0-0.7); Eosinophils % (A) 3 %; HCT 36.7 % (34.0-46.0); HGB 12.2 gm/dL (11.4-16.0); Lymphocytes # (A) 2.2 k/uL (1.0-4.8); Lymphocytes % (A) 19 %; MCH 30.5 pg (25.0-35.0); MCHC 33.3 g/dL (31.0-37.0); MCV 91.5 fL (80.0-100.0); Mean Platelet Volume 6.8; Monocytes # (A) 0.9 k/uL (0-1.0); Monocytes % (A) 8 %; Neutrophils % (A) 68 %; Platelet Count 199 k/uL (150-450); RBC 4.01 m/uL (3.80-5.40); RDW 13.2 % (11.5-15.5); WBC 11.8 k/uL (3.8-10.6)
[2020-04-20] MEDS: HEPARIN SOD,PORK IN 0.45% NACL 25,000 UNIT in 0.45% NACL 1 250ML.BAG IV SCH (05:44)
[2020-04-20 06:10] LABS: INR 1.1 (<1.2); Prothrombin Time 11.2 sec (9.0-12.0)
[2020-04-20 06:21] LABS: Partial Thromboplastin Time 117.5 sec (22.0-30.0)
[2020-04-20 06:56] LABS: Calcium 9.5 mg/dL (8.4-10.2); Potassium 3.8 mmol/L (3.5-5.1)
[2020-04-20] MEDS: FLECAINIDE 50 MG TAB PO SCH ×2 (08:46→20:14)
[2020-04-20] MEDS: DOCUSATE 100 MG CAP PO SCH ×2 (08:46→20:14)
[2020-04-20] MEDS: SODIUM CHLORIDE 0.9% 1,000 ML IV SCH ×2 (08:47→20:05)
[2020-04-20] MEDS: PANTOPRAZOLE 40 MG/10 ML VIAL IVP SCH ×2 (08:47→20:13)
[2020-04-20] MEDS ORDERED: ASPIRIN 325 MG TAB PO SCH (09:00)
--- NOTE | 2020-04-20 09:12 | P.PN ---
Subjective Patient was admitted secondary to syncope which was believed to be secondary to dehydration and acute renal failure. Acute renal failure improved. Patient was also found to have DVT in the left lower extremity which is secondary to her limited ambulatory status secondary to recent fracture in the right lower extremity. Patient was on IV heparin which is being transitioned to Eliquis. Patient also has minimally elevated sugar of troponins which was believed secondary to renal failure. Echocardiogram is pending. Patient can use to be on IV fluids. May be a small PE in the small subtle segmental PE which cannot be ruled out VQ scan showed low low probability for pulmonary embolism. Constitutional: Denied any fatigue denied any fever. Cardio vascular: denied any chest pain, palpitations Gastrointestinal denied any nausea vomiting Pulmonary: Denied any shortness of breath cough Neurologic denied any new focal deficits All inpatient medications were reviewed and appropriate changes in these medications as dictated in the interval history and assessment and plan. Objective - Vital Signs Vital signs: Vital Signs Temp 98.1 F 04/20/20 08:00 Pulse 60 04/20/20 08:00 Resp 20 04/20/20 08:00 BP 128/59 04/20/20 08:00 Pulse Ox 98 04/20/20 08:00 Intake & Output 04/19/20 04/20/20 04/20/20 18:59 06:59 18:59 Intake Total 294.003 231.879 0 Output Total 700 Balance 294.003 -468.121 0 Weight 106 kg Intake: Intake, IV Titration 234.003 231.879 0 Amount Heparin Sod,Pork in 0.45% 234.003 231.879 0 NaCl 25,000 unit In 0.45 % NaCl 1 250ml.bag @ 18 UNITS/KG/HR 18.044 mls/hr IV .[id number] [facility] Rx#: [id number] Oral 60 Output: Urine 700 Other: Voiding Method Bedside Commode # Voids 0 - Exam PHYSICAL EXAMINATION: GENERAL: The patient is alert and oriented x3, not in any acute distress. Obese HEENT: Pupils are round and equally reacting to light. EOMI. No scleral icterus. No conjunctival pallor. Normocephalic, atraumatic. No pharyngeal erythema. No thyromegaly. CARDIOVASCULAR: S1 and S2 present. No murmurs, rubs, or gallops. PULMONARY: Chest is clear to auscultation, no wheezing or crackles. ABDOMEN: Soft, nontender, nondistended, normoactive bowel sounds. No palpable organomegaly. MUSCULOSKELETAL: No joint swelling or deformity. EXTREMITIES: No cyanosis, clubbing, edema in the left leg and patient has a cast to the right leg. NEUROLOGICAL: Gross neurological examination did not reveal any focal deficits. SKIN: No rashes. - Labs CBC & Chem 7: 04/20/20 05:25 04/20/20 05:25 Labs: Abnormal Lab Results - Last 24 Hours (Table) 04/19/20 04/19/20 04/19/20 Range/Units 11:15 15:12 20:21 WBC (3.8-10.6) k/uL Neutrophils # (1.3-7.7) k/uL APTT 32.1 H 98.6 H (22.0-30.0) sec Sodium (137-145) mmol/L BUN (7-17) mg/dL Creatinine (0.52-1.04) mg/dL Glucose (74-99) mg/dL Plasma Lactic Acid Jr 2.4 H* (0.7-2.0) mmol/L 04/20/20 04/20/20 04/20/20 Range/Units 05:25 05:25 05:25 WBC 11.8 H (3.8-10.6) k/uL Neutrophils # 8.0 H (1.3-7.7) k/uL APTT 117.5 H* (22.0-30.0) sec Sodium 134 L (137-145) mmol/L BUN 18 H (7-17) mg/dL Creatinine 1.18 H (0.52-1.04) mg/dL Glucose 105 H (74-99) mg/dL Plasma Lactic Acid Jr (0.7-2.0) mmol/L Assessment and Plan Plan: -Syncope: Secondary to dehydration and intravascular volume depletion secondary to the poor by mouth intake. Hold off on hydrochlorothiazide, continue with IV fluids. Hold off on lisinopril. And improved. -acute renal failure: Hold off on diuretics and lisinopril because of above- mentioned reasons -Leukocytosis reactive Hypovolemic hyponatremia expected to bring with IV fluids -Left leg DVT patient is on heparin at this time IV will be transitioned to eliquis today -Elevated troponin secondary to renal failure -Atrial fibrillation presently rate controlled regimen her home medications -hyperthyroidism
[2020-04-20] MEDS: APIXABAN 5 MG TAB PO SCH ×2 (10:08→20:13)
--- NOTE | 2020-04-20 10:10 | P.PN ---
Subjective Progress Note Date: 04/20/20 This is a pleasant 79-year-old female who follows with Dr. Robbins in the office. She has had a prior history of atrial fibrillation, not on anticoagulation, remaining in normal sinus rhythm, history of hypertension, hyperlipidemia, hypothyroidism. Patient presents to the hospital on this occasion with syncope. According to the patient, she had got up to go and have a bowel movement, she did feel quite lightheaded at that time, shortly thereafter she stood up, went and sat in a chair and again became very dizzy, she thinks she did lose consciousness for a brief period of time. Patient has been significantly dehydrated and not eating and drinking enough at home. She also had a recent ankle fracture for which the patient underwent surgery in February. Blood pressure 152/70 with a heart rate in the 70s, 97% on room air. White blood cell count 21.1, hemoglobin 14.2, platelet count 226. Sodium 133, potassium 3.8, BUN 25, creatinine 1.5, lactic acid 2.7, 2.2, 2.3. Opponents 0.14, 0.66, 0.82. Vargas virus not detected. Positive UTI. D-dimer 28.8. Initial chest x-ray showed bibasilar atelectasis. CAT scan of the brain was performed which did not reveal any evidence of acute intracranial process. EKG on presentation here showed a normal sinus rhythm with right axis deviation, nonspecific ST-T wave changes. VQ scan was performed which was low probability for pulmonary embolism. Bilateral lower extremity venous duplex study was performed which revealed positive DVT in the mid popliteal vein of the left leg. Patient has been initiated on IV heparin for this. At the time of my examination this morning, patient feels well, no dizziness or lightheadedness, no chest discomfort, and her breathing overall is stable. 04/20/2020 Patient seen and examined this morning, feels well, slept well through the night last night. Denies any dizziness or lightheadedness, no chest discomfort, no shortness of breath. Orthostatic blood pressures were obtained which came back to be negative. Blood pressure this morning 128/60 with a heart rate in the 60s, 98% on room air. White blood cell count 11.8, hemoglobin 12.2, platelet count 199. Sodium 134, potassium 3.8, BUN 18, creatinine 1.1. Patient was initiated on Eliquis today. Objective - Vital Signs Vital signs: Vital Signs Temp 98.1 F 04/20/20 08:00 Pulse 60 04/20/20 08:00 Resp 20 04/20/20 08:00 BP 128/59 04/20/20 08:00 Pulse Ox 98 04/20/20 08:00 Intake & Output 04/19/20 04/20/20 04/20/20 18:59 06:59 18:59 Intake Total 294.003 231.879 0 Output Total 700 Balance 294.003 -468.121 0 Weight 106 kg Intake: Intake, IV Titration 234.003 231.879 0 Amount Heparin Sod,Pork in 0.45% 234.003 231.879 0 NaCl 25,000 unit In 0.45 % NaCl 1 250ml.bag @ 18 UNITS/KG/HR 18.044 mls/hr IV .[id number] [facility] Rx#: [id number] Oral 60 Output: Urine 700 Other: Voiding Method Bedside Commode # Voids 0 - Exam PHYSICAL EXAMINATION: GENERAL: 79-year-old female in no acute distress at the time of my examination HEENT: Head is atraumatic, normocephalic. Pupils equal, round. Sclera anicteric. Conjunctiva are clear. Mucous membranes of the mouth are moist. Neck is supple. There is no elevated jugular venous pressure. No carotid bruit is heard. HEART EXAMINATION: Heart S1, S2 normal. No murmur or gallop heard. CHEST EXAMINATION: Lungs are clear to auscultation and precussion. No chest wall tenderness is noted on palpation or with deep breathing. ABDOMEN: Soft, nontender. Bowel sounds are heard. No organomegaly noted. EXTREMITIES: 2+ peripheral pulses with no evidence of peripheral edema and no calf tenderness noted. Patient does have a cast to her right lower extremity NEUROLOGIC patient is awake, alert and oriented 3 . . - Labs CBC & Chem 7: 04/20/20 05:25 04/20/20 05:25 Labs: Abnormal Lab Results - Last 24 Hours (Table) 04/19/20 04/19/20 04/19/20 Range/Units 11:15 15:12 20:21 WBC (3.8-10.6) k/uL Neutrophils # (1.3-7.7) k/uL APTT 32.1 H 98.6 H (22.0-30.0) sec Sodium (137-145) mmol/L BUN (7-17) mg/dL Creatinine (0.52-1.04) mg/dL Glucose (74-99) mg/dL Plasma Lactic Acid Jr 2.4 H* (0.7-2.0) mmol/L 04/20/20 04/20/20 04/20/20 Range/Units 05:25 05:25 05:25 WBC 11.8 H (3.8-10.6) k/uL Neutrophils # 8.0 H (1.3-7.7) k/uL APTT 117.5 H* (22.0-30.0) sec Sodium 134 L (137-145) mmol/L BUN 18 H (7-17) mg/dL Creatinine 1.18 H (0.52-1.04) mg/dL Glucose 105 H (74-99) mg/dL Plasma Lactic Acid Jr (0.7-2.0) mmol/L Assessment and Plan Plan: Assessment and plan #1 syncope, could be secondary to dehydration, patient's VQ scan was negative for a pulmonary embolism. We will check orthostatic heart rate and blood pressure every shift #2 acute renal failure, likely secondary to dehydration, lisinopril placed on hold #3 leukocytosis #4 positive DVT in the left lower extremity, patient currently on IV heparin, will be transitioned over to Eliquis #5 elevated troponin, could be secondary to renal failure and evidence of DVT #6 history of prior atrial fibrillation, remaining in normal sinus rhythm Plan Echocardiogram with Doppler study is pending. Patient has been initiated on Eliquis for the DVT. DNP note has been reviewed, I agree with a documented findings and plan of care. Patient was seen and examined.
--- NOTE | 2020-04-20 10:36 | ECHOF ---
Referral Reason:PE MEASUREMENTS -------- HEIGHT: 177.8 cm WEIGHT: 100.2 kg BP: 138/83 RVIDd: 4.5 cm (< 3.3) IVSd: 1.3 cm (0.6 - 1.1) LVIDd: 3.1 cm (3.9 - 5.3) LVPWd: 1.2 cm (0.6 - 1.1) IVSs: 1.8 cm LVIDs: 2.0 cm LVPWs: 1.5 cm Ao Diam: 3.4 cm (2.0 - 3.7) AV Cusp: 2.1 cm (1.5 - 2.6) MV EXCURSION: 11.453 mm (> 18.000) MV EF SLOPE: 38 mm/s (70 - 150) EPSS: 0.6 cm MV E Phill: 0.50 m/s MV DecT: 243 ms MV A Phill: 0.76 m/s MV E/A Ratio: 0.65 RAP: 5.00 mmHg RVSP: 25.72 mmHg FINDINGS -------- Sinus rhythm. This was a technically difficult study with suboptimal views. The left ventricular size is normal. There is mild concentric left ventricular hypertrophy. Overa ll left ventricular systolic function is normal with, an EF between 55 - 60 %. The right ventricle is moderate to severely enlarged. The left atrium was not well visualized. The right atrium is moderately enlarged. 5.0mg of Lumason was utilized for enhancement of images Interatrial and interventricular septum intact. The aortic valve was not well visualized. There is no evidence of aortic regurgitation. There is no evidence of aortic stenosis. The mitral valve was not well visualized. No mitral regurgitation. Mild tricuspid regurgitation present. There is no evidence of pulmonary hypertension. The right v entricular systolic pressure, as measured by Doppler, is 25.72mmHg. The pulmonic valve was not well visualized. There is no pulmonic regurgitation present. The aortic root size is normal. IVC Not well visulized. There is no pericardial effusion. CONCLUSIONS -------- 1. The left ventricular size is normal. 2. There is mild concentric left ventricular hypertrophy. 3. Overall left ventricular systolic function is normal with, an EF between 55 - 60 %. 4. The right ventricle is moderate to severely enlarged. 5. The right atrium is moderately enlarged. 6. Mild tricuspid regurgitation present. INDUSTRIAL CUSTODIAN: Shikha Sal RDCS
[2020-04-20] MEDS: ATORVASTATIN 40 MG TAB PO SCH (20:13)
[2020-04-20] MEDS: LEVOTHYROXINE 100 MCG TAB PO SCH (20:14)
[2020-04-21 03:27] VITALS: RESP 17
[2020-04-21] MEDS: SODIUM CHLORIDE 0.9% 1,000 ML IV SCH (04:44)
[2020-04-21 07:56] LABS: Basophils # (A) 0.1 k/uL (0-0.2); Basophils % (A) 1 %; Eosinophils # (A) 0.4 k/uL (0-0.7); Eosinophils % (A) 4 %; HCT 36.9 % (34.0-46.0); HGB 12.3 gm/dL (11.4-16.0); Lymphocytes # (A) 1.4 k/uL (1.0-4.8); Lymphocytes % (A) 13 %; MCH 30.6 pg (25.0-35.0); MCHC 33.3 g/dL (31.0-37.0); MCV 91.8 fL (80.0-100.0); Mean Platelet Volume 6.8; Monocytes # (A) 0.8 k/uL (0-1.0); Monocytes % (A) 8 %; Neutrophils # (A) 7.7 k/uL (1.3-7.7); Neutrophils % (A) 73 %; Platelet Count 215 k/uL (150-450); RBC 4.02 m/uL (3.80-5.40); RDW 13.2 % (11.5-15.5); WBC 10.5 k/uL (3.8-10.6)
[2020-04-21 08:08] LABS: Prothrombin Time 10.6 sec (9.0-12.0)
[2020-04-21 09:03] LABS: Calcium 9.8 mg/dL (8.4-10.2); Potassium 4.3 mmol/L (3.5-5.1)
[2020-04-21] MEDS: FLECAINIDE 50 MG TAB PO SCH (09:15)
[2020-04-21] MEDS: PANTOPRAZOLE 40 MG/10 ML VIAL IVP SCH (09:15)
[2020-04-21] MEDS: DOCUSATE 100 MG CAP PO SCH (09:15)
[2020-04-21] MEDS: APIXABAN 5 MG TAB PO SCH (09:15)
--- NOTE | 2020-04-21 10:44 | P.PN ---
Subjective This is a pleasant 79-year-old female past medical history significant for ventricular tachycardia in 1993, hypertension, dyslipidemia, hypothyroidism and recent ankle fracture. She has been diagnosed with lower extremity DVT and initiated on anticoagulation. Echocardiogram obtained reveals preserved LV systolic function with ejection fraction 55-60% with severely dilated right ventricle. Blood pressure 162/74 heart rate 71 afebrile maintaining oxygen saturation on room air. Laboratory data reviewed, CBC unremarkable, sodium 137, potassium 4.3 and creatinine 1.2. She is seen and examined sitting up in bed in no acute distress. She denies symptoms of chest pain, shortness of breath dizziness or palpitations. She has had no further episodes of near syncope while getting up and using the commode. Review of old echocardiogram in the office from 2018 revealed at that time the right ventricle is normal size with normal function. GENERAL: Well-appearing, well-nourished and in no acute distress. NECK: Supple without JVD or thyromegaly. LUNGS: Breath sounds clear to auscultation bilaterally. Respiration equal and unlabored. No wheezes, rales or rhonchi. HEART: Regular rate and rhythm without murmurs, rubs or gallops. S1 and S2 heard. EXTREMITIES: Normal range of motion, no edema. No clubbing or cyanosis. Peripheral pulses intact. ASSESSMENT Near syncope Lower extremity DVT Presumptive PE Elevated troponin, could be related to presumptive PE Acute kidney injury Dehydration History of ventricular tachycardia, exact details unknown PLAN Review of records and old echocardiogram reveal she now has a moderate to severely dilated RV, which is new. With her clinical presentation, this is likely due to PE however not captured on VQ scan. She is currently anti- coagulated for DVT and would recommend continuing this for at least 6 months. Further review also revealed she has a history of VT in 1993 for which she is on flecanide, no history of afib. Once her ankle and DVT are healed we would recommend an outpatient Tilt Table test and further ischemic work-up with a stress test. Overall stable from a cardiac perspective. Follow up with Dr. Robbins in 2 weeks. Nurse Practitioner note has been reviewed, I agree with a documented findings and plan of care. Patient was seen and examined. Objective - Vital Signs Vital signs: Vital Signs Temp 98 F 04/21/20 03:15 Pulse 71 04/21/20 03:15 Resp 17 04/21/20 03:15 BP 162/74 04/21/20 03:15 Pulse Ox 97 04/21/20 03:15 Intake & Output 04/20/20 04/21/20 04/21/20 18:59 06:59 18:59 Intake Total 392.934 Output Total 1400 300 Balance 392.934 -1400 -300 Weight 105.1 kg Intake: Intake, IV Titration 22.934 Amount Heparin Sod,Pork in 0.45% 22.934 NaCl 25,000 unit In 0.45 % NaCl 1 250ml.bag @ 18 UNITS/KG/HR 18.044 mls/hr IV .[id number] [facility] Rx#: [id number] Oral 370 Output: Urine 1400 300 Other: Voiding Method Bedside Commode # Voids 1 1 # Bowel Movements 1 - Labs CBC & Chem 7: 04/21/20 06:58 04/21/20 06:58
[2020-04-21 11:54] VITALS: BP 134/62; PULSE 61; TEMP 96.1
--- NOTE | 2020-04-22 10:12 | CDI ---
Documentation Clarification Form Date: 04/22/2020 09:59:00 AM From: Shannansravan Araiza Phone: If you have a question about this query, please contact Shanta Lo, Logistics Administrator at [phone] between 8am and 5pm. Admit Date: 04/19/2020 02:28:00 AM Patient Name: Cheri Infante Visit Number: [id number] Discharge Date: 04/21/2020 01:11:00 PM ATTENTION: The Clinical Documentation Specialists (CDI) and [facility] Coding Staff appreciate your assistance in clarifying documentation. Please respond to the clarification below the line at the bottom and electronically sign. The CDI & [facility] Coding staff will review the response and follow-up if needed. Please note: Queries are made part of the Legal Health Record. If you have any questions, please contact the author of this message via ITS. Dr. Claire Martínez The patient presented with the SOB and syncope, weakness. venous doppler showing acute DVT left mid popliteal vein. Cardiology last PN documents presumptive PE. Please clarify if patient had PE or was it ruled out. History/Risk Factors: DVT, atrial fib Clinical Indicators: SOB Radiology findings: VQ scan negative for PE Vital Signs: 97.2 F, 89 bpm, 18, 127/73, 85% on RA Treatment: Heparin IV transitioned to Eliquis Consults: Cardiology - presumptive PE In your professional opinion, can you please clarify if patient had PE or was this ruled out. PE PE ruled out Other, please specify Unable to determine No further documentation will be provided apart from my note which was clear MTDD
--- NOTE | 2020-04-22 15:14 | P.DS ---
Providers Date of admission: 04/19/20 02:28 Attending physician: Shadi Muhammad Consults: 04/19/20 02:28 Consult Physician Urgent Consulting Provider: Wanda Hardy Consult Reason/Comments: NSTEMI Do you want consulting provider notified?: Yes Primary care physician: Shadi Muhammad Hospital Course: Patient was admitted secondary to syncope which was believed to be secondary to dehydration and acute renal failure. Acute renal failure improved. Patient was also found to have DVT in the left lower extremity which is secondary to her limited ambulatory status secondary to recent fracture in the right lower extremity. Patient was on IV heparin which is being transitioned to Eliquis. Patient also has minimally elevated sugar of troponins which was believed secondary to renal failure. Echocardiogram is pending. Patient can use to be on IV fluids. May be a small PE in the small subtle segmental PE which cannot be ruled out VQ scan showed low low probability for pulmonary embolism. 04/21/2020 patient's dehydration improved patient was cleared by cardiology patient will be discharged on the Eliquis for her DVT of the left leg PHYSICAL EXAMINATION: GENERAL: The patient is alert and oriented x3, not in any acute distress. Obese HEENT: Pupils are round and equally reacting to light. EOMI. No scleral icterus. No conjunctival pallor. Normocephalic, atraumatic. No pharyngeal erythema. No thyromegaly. CARDIOVASCULAR: S1 and S2 present. No murmurs, rubs, or gallops. PULMONARY: Chest is clear to auscultation, no wheezing or crackles. ABDOMEN: Soft, nontender, nondistended, normoactive bowel sounds. No palpable organomegaly. MUSCULOSKELETAL: No joint swelling or deformity. EXTREMITIES: No cyanosis, clubbing, edema in the left leg and patient has a cast to the right leg. NEUROLOGICAL: Gross neurological examination did not reveal any focal deficits. SKIN: No rashes. Assessment and Plan Plan: -Syncope: Secondary to dehydration and intravascular volume depletion secondary to the poor by mouth intake. Improved -acute renal failure: Hold off on diuretics, lisinopril resumed -Leukocytosis reactive Hypovolemic hyponatremia improved -Left leg DVT patient is on heparin at this time IV will be transitioned to eliquis today -Elevated troponin secondary to renal failure -Atrial fibrillation presently rate controlled regimen her home medications -hyperthyroidism Patient Condition at Discharge: Serious Plan - Discharge Summary Discharge Rx Participant: No New Discharge Prescriptions: New Apixaban [Eliquis Starter Pack (for VTE)] 0 mg PO DIRECTED 30 Days #1 pack Continue Levothyroxine Sodium [Synthroid] 100 mcg PO HS Atorvastatin [Lipitor] 40 mg PO HS Flecainide Acetate [Tambocor] 150 mg PO BID Ascorbic Acid [Vitamin C] 500 mg PO DAILY Multivitamins, Thera [Multivitamin (formulary)] 1 tab PO DAILY Calcium Carbonate [Calcium] 600 mg PO DAILY Docusate [Colace] 100 mg PO BID #60 capsule Lisinopril [Prinivil] 10 mg PO DAILY Discontinued Spironolactone [Aldactone] 25 mg PO BID hydroCHLOROthiazide [Hydrodiuril] 25 mg PO DAILY Discharge Medication List Atorvastatin [Lipitor] 40 mg PO HS 11/26/14 [History] Levothyroxine Sodium [Synthroid] 100 mcg PO HS 11/26/14 [History] Flecainide Acetate [Tambocor] 150 mg PO BID 02/04/20 [History] Ascorbic Acid [Vitamin C] 500 mg PO DAILY 03/11/20 [History] Calcium Carbonate [Calcium] 600 mg PO DAILY 03/11/20 [History] Multivitamins, Thera [Multivitamin (formulary)] 1 tab PO DAILY 03/11/20 [History] Docusate [Colace] 100 mg PO BID #60 capsule 03/13/20 [Rx] Lisinopril [Prinivil] 10 mg PO DAILY 04/19/20 [History] Apixaban [Eliquis Starter Pack (for VTE)] 0 mg PO DIRECTED 30 Days #1 pack 04/20/20 [Rx] Follow up Appointment(s)/Referral(s): Shadi Muhammad MD [Primary Care Provider] - 04/24/20 2:10 pm [facility], [NON-STAFF] - Kinga Robbins MD [STAFF PHYSICIAN] - 05/05/20 3:45 pm (Appointment is at [place].) Patient Instructions/Handouts: Syncope (DC), Deep Vein Thrombosis (DC) Discharge Disposition: HOME SELF-CARE
== END 2020-04-21 13:11 | disposition home or self-care (01) ==
LOC: EC 00:13 → 3SCARD 02:28 → INTOOBSV 02:28 → UNDODISIN 04-21 13:11
PROVIDERS: ADMIT Family Medicine; ATTEND Family Medicine
DX: E86.0 Dehydration (principal); N17.9 Acute kidney failure, unspecified; D72.823 Leukemoid reaction; E86.1 Hypovolemia; E78.5 Hyperlipidemia, unspecified; E87.1 Hypo-osmolality and hyponatremia; I82.432 Acute embolism and thrombosis of left popliteal vein; I48.91 Unspecified atrial fibrillation; I10 Essential (primary) hypertension; E03.9 Hypothyroidism, unspecified; E05.90 Thyrotoxicosis, unspecified without thyrotoxic crisis or storm; N39.0 Urinary tract infection, site not specified; I47.2 Ventricular tachycardia; J98.11 Atelectasis; E66.9 Obesity, unspecified; Z68.33 Body mass index [BMI] 33.0-33.9, adult; Z20.822 Contact with and (suspected) exposure to COVID-19; Z79.899 Other long term (current) drug therapy; Z79.890 Hormone replacement therapy; Z90.49 Acquired absence of other specified parts of digestive tract; Z86.79 Personal history of other diseases of the circulatory system
CPT/HCPCS: 96376 ×4; 96366 ×2; 96375; 93005 ×2; 96361; 96365; 96367; 99291; 36415; 85379; 83880; 80061; 80053; 80048 ×2; 82550; 83605; 83735; 84100; 84443; 84484; 85025 ×3; 85610 ×3; 85730 ×2; 81001; 87635; 71046; 93970; 70450; 78582; G0378 ×3; C8929; A9540; A9567; J1644 ×3; J0696; C9113 ×3; Q9950; 93306

== ENCOUNTER 2022-11-09 15:58 | Observation (INO) | payer MEDICARE ==
--- NOTE | 2022-11-09 16:20 | ED ---
SOB HPI - General Chief Complaint: Shortness of Breath Stated Complaint: SOB Time Seen by Provider: 11/09/22 16:05 Source: patient, EMS Mode of arrival: EMS Limitations: no limitations - History of Present Illness Initial Comments: 81-year-old female with past medical history of A. fib, hyperlipidemia, hypertension who presents to the emergency department reporting shortness of breath. States that she awoke this morning and was having significant dif ficulty breathing 8 AM. Cannot ambulate to her bathroom without being short of breath. She does not have any underlying lung issues to include asthma or COPD. No cardiac disease. Does have a history of A. fib however is not on any anticoagulation. Also has a history of a DVT and PE however this was provoked several years ago after a leg fracture. Patient was on anticoagulation for 6 months and taken off. She denies any chest pain. No fevers, chills or cough. No sick contacts. No other alleviating, precipitating or modifying factors - Related Data Home Medications Medication Instructions Recorded Confirmed Atorvastatin [Lipitor] 40 mg PO HS 11/26/14 11/09/22 Levothyroxine Sodium [Synthroid] 100 mcg PO DAILY 11/26/14 11/09/22 lisinopriL [Prinivil] 10 mg PO DAILY 04/19/20 11/09/22 Flecainide [Tambocor] 50 mg PO BID 11/09/22 11/09/22 Allergies Allergy/AdvReac Type Severity Reaction Status Date / Time No Known Allergies Allergy Verified 11/09/22 17:52 Review of Systems ROS Statement: Those systems with pertinent positive or pertinent negative responses have been documented in the HPI. ROS Other: All systems not noted in ROS Statement are negative. Past Medical History Past Medical History: Atrial Fibrillation, Hyperlipidemia, Hypertension, Thyroid Disorder Additional Past Medical History / Comment(s): internal and external hemmorhoids, states hx of arrythmia and palpitations History of Any Multi-Drug Resistant Organisms: None Reported Past Surgical History: Breast Surgery, Cholecystectomy Additional Past Surgical History / Comment(s): hiatal hernia, breast bx, ankle surgery Past Anesthesia/Blood Transfusion Reactions: No Reported Reaction Past Psychological History: No Psychological Hx Reported Smoking Status: Never smoker Past Alcohol Use History: Rare Past Drug Use History: None Reported General Exam Limitations: no limitations General appearance: alert, in no apparent distress Head exam: Present: atraumatic, normocephalic, normal inspection Eye exam: Present: normal appearance, PERRL, EOMI. Absent: scleral icterus, conjunctival injection, periorbital swelling ENT exam: Present: normal exam, mucous membranes moist Neck exam: Present: normal inspection. Absent: tenderness, meningismus, lymphadenopathy Respiratory exam: Present: normal lung sounds bilaterally. Absent: respiratory distress, wheezes, rales, rhonchi, stridor Cardiovascular Exam: Present: regular rate, normal rhythm, normal heart sounds. Absent: systolic murmur, diastolic murmur, rubs, gallop, clicks GI/Abdominal exam: Present: soft, normal bowel sounds. Absent: distended, tenderness, guarding, rebound, rigid Extremities exam: Present: normal inspection, full ROM, normal capillary refill. Absent: tenderness, pedal edema, joint swelling, calf tenderness Back exam: Present: normal inspection Neurological exam: Present: alert, oriented X3, CN II-XII intact Psychiatric exam: Present: normal affect, normal mood Skin exam: Present: warm, dry, intact, normal color. Absent: rash Course Vital Signs 11/09/22 11/09/22 11/09/22 16:01 18:32 22:22 Temperature 97.4 F L Pulse Rate 101 H 84 94 Respiratory 22 18 18 Rate Blood Pressure 191/99 163/93 147/93 O2 Sat by Pulse 92 L 98 100 Oximetry - Reevaluation(s) Reevaluation #1: 11/09/22 19:14 Dr. Fajardo aware - on for EKOS Medical Decision Making - Medical Decision Making Was pt. sent in by a medical professional or institution (, PA, BACK TUFTER, urgent care, hospital, or detention...) When possible be specific @ -No Did you speak to anyone other than the patient for history (EMS, parent, family, police, friend...)? What history was obtained from this source @ -No Did you review nursing and triage notes (agree or disagree)? Why? @ -I reviewed and agree with nursing and triage notes Were old charts reviewed (outside hosp., previous admission, EMS record, old E KG, old radiological studies, urgent care reports/EKG's, detention records)? Report findings @ -No old charts were reviewed Differential Diagnosis (chest pain, altered mental status, abdominal pain women, abdominal pain men, vaginal bleeding, weakness, fever, dyspnea, syncope, headache, dizziness, GI bleed, back pain, seizure, CVA, palpatations, mental hea lth, musculoskeletal)? @ -Differential Dyspnea: Coronary syndrome, arrhythmia, tamponade, asthma, COPD, pulmonary embolism, pneumonia, pneumothorax, pulmonary effusion, anaphylaxis, diabetic ketoacidosis, flailed chest, pulmonary contusion, diaphragmatic rupture, anemia, neuromu scular, this is not meant to be an all-inclusive list. EKG interpreted by me (3pts min.). @ -Yes and demonstrates sinus rhythm with a rate of 96. MS interval 187. QRS 110. QTC of 425. Mild ST depression V3. No acute ST segment elevations X-rays interpreted by me (1pt min.). @ -None done CT interpreted by me (1pt min.). @ -Yes and demonstrates multiple bilateral PEs. No strain per CT. U/S interpreted by me (1pt. min.). @ -None done What testing was considered but not performed or refused? (CT, X-rays, U/S, labs)? Why? @ -None What meds were considered but not given or refused? Why? @ -None Did you discuss the management of the patient with other professionals (professionals i.e. , PA, BACK TUFTER, lab, RT, psych nurse, clinical social worker, knit goods washer, teacher, photographic intelligence officer, caseworker)? Give summary @ -Spoke with Dr. Fajardo who is aware that the patient is in the emergency department with a PE causing elevation in her heart enzyme Was smoking cessation discussed for >3mins.? @ -No Was critical care preformed (if so, how long)? @ -Yes, 40 minutes for evaluation of patient with bilateral PE and elevated troponin requiring heparin drip Were there social determinants of health that impacted care today? How? (Homelessness, low income, unemployed, alcoholism, drug addiction, transportation, low edu. Level, literacy, decrease access to med. care, snf, rehab)? @ -No Was there de-escalation of care discussed even if they declined (Discuss DNR or withdrawal of care, Hospice)? DNR status @ -No What co-morbidities impacted this encounter? (DM, HTN, Smoking, COPD, CAD, Cancer, CVA, ARF, Chemo, Hep., AIDS, mental health diagnosis, sleep apnea, morbid obesity)? @ -History of DVT, PE Was patient admitted / discharged? Hospital course, mention meds given and route, prescriptions, significant lab abnormalities, going to OR and other pertinent info. @ -Upon arrival patient was placed in room 18. Thorough history and physical exam was performed. IV is established and laboratory studies are conducted. D- dimer was elevated at 11. She is sent for CT of her chest which demonstrates multiple bilateral PEs. She is initiated on a heparin drip. Called and spoke with Dr. Fajardo who is on for EKOS. Patient is hemodynamic stable at this time. Patient will be admitted to [facility]. Spoke with Rosy who agreed to admit the patient. Patient awaiting a bed on the floor in stable condition Undiagnosed new problem with uncertain prognosis? @ -Yes Drug Therapy requiring intensive monitoring for toxicity (Heparin, Nitro, Insulin, Cardizem)? @ -Yes. heparin Were any procedures done? @ -No Diagnosis/symptom? @ -Acute respiratory insufficiency, acute bilateral PE, NSTEMI Acute, or Chronic, or Acute on Chronic? @ -Acute Uncomplicated (without systemic symptoms) or Complicated (systemic symptoms)? @ -Complicated Side effects of treatment? @ -Bleeding Exacerbation, Progression, or Severe Exacerbation? @ -No Poses a threat to life or bodily function? How? (Chest pain, [place], [place], pneumonia, PE, COPD, DKA, ARF, appy, cholecystitis, CVA, Diverticulitis, Homicidal, Suicidal, threat to staff... and all critical care pts) @ -Yes. Patient found to have bilateral PEs with elevation in heart enzyme - Lab Data Result diagrams: 11/09/22 17:09 11/09/22 17:09 Lab Results 11/09/22 11/09/22 11/09/22 Range/Units 17:09 17:09 17:09 WBC 11.8 H (3.8-10.6) k/uL RBC 5.00 (3.80-5.40) m/uL Hgb 14.8 (11.4-16.0) gm/dL Hct 45.6 (34.0-46.0) % MCV 91.2 (80.0-100.0) fL MCH 29.6 (25.0-35.0) pg MCHC 32.5 (31.0-37.0) g/dL RDW 12.6 (11.5-15.5) % Plt Count 229 (150-450) k/uL MPV 7.3 Neutrophils % 72 % Lymphocytes % 15 % Monocytes % 7 % Eosinophils % 2 % Basophils % 1 % Neutrophils # 8.5 H (1.3-7.7) k/uL Lymphocytes # 1.8 (1.0-4.8) k/uL Monocytes # 0.9 (0-1.0) k/uL Eosinophils # 0.2 (0-0.7) k/uL Basophils # 0.1 (0-0.2) k/uL PT 10.1 (9.0-12.0) sec INR 1.0 (<1.2) APTT 23.6 (22.0-30.0) sec D-Dimer 11.84 H (<0.60) mg/L FEU Sodium 136 L (137-145) mmol/L Potassium 5.3 H (3.5-5.1) mmol/L Chloride 104 (98-107) mmol/L Carbon Dioxide 24 (22-30) mmol/L Anion Gap 8 mmol/L BUN 18 H (7-17) mg/dL Creatinine 1.10 H (0.52-1.04) mg/dL Est GFR (CKD-EPI)AfAm 54 (>60 ml/min/1.73 sqM) Est GFR (CKD-EPI)NonAf 47 (>60 ml/min/1.73 sqM) Glucose 112 H (74-99) mg/dL Plasma Lactic Acid Jr (0.7-2.0) mmol/L Calcium 9.8 (8.4-10.2) mg/dL Magnesium 2.1 (1.6-2.3) mg/dL Total Bilirubin 1.0 (0.2-1.3) mg/dL AST 34 (14-36) U/L ALT 28 (4-34) U/L Alkaline Phosphatase 124 (38-126) U/L Troponin I (0.000-0.034) ng/mL NT-Pro-B Natriuret Pep 495 pg/mL Total Protein 7.5 (6.3-8.2) g/dL Albumin 4.0 (3.5-5.0) g/dL Urine Color Urine Appearance (Clear) Urine pH (5.0-8.0) Ur Specific [place] (1.001-1.035) Urine Protein (Negative) Urine Glucose (UA) (Negative) Urine Ketones (Negative) Urine Blood (Negative) Urine Nitrite (Negative) Urine Bilirubin (Negative) Urine Urobilinogen (<2.0) mg/dL Ur Leukocyte Esterase (Negative) Urine RBC (0-5) /hpf Urine WBC (0-5) /hpf Ur Squamous Epith Cells (0-4) /hpf Urine Bacteria (None) /hpf Urine Mucus (None) /hpf 11/09/22 11/09/22 11/09/22 Range/Units 17:09 17:09 17:17 WBC (3.8-10.6) k/uL RBC (3.80-5.40) m/uL Hgb (11.4-16.0) gm/dL Hct (34.0-46.0) % MCV (80.0-100.0) fL MCH (25.0-35.0) pg MCHC (31.0-37.0) g/dL RDW (11.5-15.5) % Plt Count (150-450) k/uL MPV Neutrophils % % Lymphocytes % % Monocytes % % Eosinophils % % Basophils % % Neutrophils # (1.3-7.7) k/uL Lymphocytes # (1.0-4.8) k/uL Monocytes # (0-1.0) k/uL Eosinophils # (0-0.7) k/uL Basophils # (0-0.2) k/uL PT (9.0-12.0) sec INR (<1.2) APTT (22.0-30.0) sec D-Dimer (<0.60) mg/L FEU Sodium (137-145) mmol/L Potassium (3.5-5.1) mmol/L Chloride (98-107) mmol/L Carbon Dioxide (22-30) mmol/L Anion Gap mmol/L BUN (7-17) mg/dL Creatinine (0.52-1.04) mg/dL Est GFR (CKD-EPI)AfAm (>60 ml/min/1.73 sqM) Est GFR (CKD-EPI)NonAf (>60 ml/min/1.73 sqM) Glucose (74-99) mg/dL Plasma Lactic Acid Jr 1.2 (0.7-2.0) mmol/L Calcium (8.4-10.2) mg/dL Magnesium (1.6-2.3) mg/dL Total Bilirubin (0.2-1.3) mg/dL AST (14-36) U/L ALT (4-34) U/L Alkaline Phosphatase (38-126) U/L Troponin I 0.826 H* (0.000-0.034) ng/mL NT-Pro-B Natriuret Pep pg/mL Total Protein (6.3-8.2) g/dL Albumin (3.5-5.0) g/dL Urine Color Colorless Urine Appearance Clear (Clear) Urine pH 6.0 (5.0-8.0) Ur Specific [place] 1.004 (1.001-1.035) Urine Protein Negative (Negative) Urine Glucose (UA) Negative (Negative) Urine Ketones Negative (Negative) Urine Blood Small H (Negative) Urine Nitrite Negative (Negative) Urine Bilirubin Negative (Negative) Urine Urobilinogen <2.0 (<2.0) mg/dL Ur Leukocyte Esterase Small H (Negative) Urine RBC 1 (0-5) /hpf Urine WBC 3 (0-5) /hpf Ur Squamous Epith Cells 1 (0-4) /hpf Urine Bacteria Rare H (None) /hpf Urine Mucus Rare H (None) /hpf Disposition Clinical Impression: NSTEMI (non-ST elevated myocardial infarction), Pulmonary embolism, Acute respiratory insufficiency Disposition: ADMITTED IP TO THIS [facility] Condition: Serious Is patient prescribed a controlled substance at d/c from ED?: No Time of Disposition: 19:17 Decision to Admit Reason: Admit from EC Decision Date: 11/09/22 Decision Time: 19:17
[2022-11-09 17:27] LABS: Basophils # (A) 0.1 k/uL (0-0.2); Basophils % (A) 1 %; Eosinophils # (A) 0.2 k/uL (0-0.7); Eosinophils % (A) 2 %; HCT 45.6 % (34.0-46.0); HGB 14.8 gm/dL (11.4-16.0); Lymphocytes # (A) 1.8 k/uL (1.0-4.8); Lymphocytes % (A) 15 %; MCH 29.6 pg (25.0-35.0); MCHC 32.5 g/dL (31.0-37.0); MCV 91.2 fL (80.0-100.0); Mean Platelet Volume 7.3; Monocytes # (A) 0.9 k/uL (0-1.0); Monocytes % (A) 7 %; Neutrophils # (A) 8.5 k/uL (1.3-7.7); Neutrophils % (A) 72 %; Platelet Count 229 k/uL (150-450); RDW 12.6 % (11.5-15.5); WBC 11.8 k/uL (3.8-10.6)
[2022-11-09 17:51] LABS: ALT 28 U/L (4-34); AST 34 U/L (14-36); African American GFR (CKD) 54 (>60 ml/min/1.73 sqM); Alkaline Phosphatase 124 U/L (38-126); Anion Gap 8 mmol/L; Blood Urea Nitrogen 18 mg/dL (7-17); Calcium 9.8 mg/dL (8.4-10.2); Carbon Dioxide 24 mmol/L (22-30); Chloride 104 mmol/L (98-107); Glucose 112 mg/dL (74-99); Magnesium 2.1 mg/dL (1.6-2.3); Non-African American GFR(CKD) 47 (>60 ml/min/1.73 sqM); Potassium 5.3 mmol/L (3.5-5.1); Sodium 136 mmol/L (137-145); Total Protein 7.5 g/dL (6.3-8.2)
[2022-11-09 17:53] LABS: Partial Thromboplastin Time 23.6 sec (22.0-30.0); Prothrombin Time 10.1 sec (9.0-12.0)
[2022-11-09 18:00] LABS: NT-Pro-B-Type Natriuretic Pept 495 pg/mL
[2022-11-09 18:16] LABS: Appearance,Urine Clear (Clear); Bacteria,Urine Rare /hpf; Bilirubin,Urine Negative (Negative); Blood,Urine Small (Negative); Color,Urine Colorless; Glucose,Urine (UA) Negative (Negative); Ketones,Urine Negative (Negative); Leukocyte Esterase,Urine Small (Negative); Mucus,Urine Rare /hpf; Nitrite,Urine Negative (Negative); Protein,Urine Negative (Negative); RBC,Urine 1 /hpf (0-5); Specific Gravity,Urine 1.004 (1.001-1.035); Squamous Epithelial Cell,Urine 1 /hpf (0-4); Urobilinogen,Urine <2.0 mg/dL (<2.0); WBC,Urine 3 /hpf (0-5)
--- NOTE | 2022-11-09 18:47 | CT ---
EXAMINATION TYPE: CT chest angio for PE DATE OF EXAM: 11/09/2022 COMPARISON: None HISTORY: SOB, elevated d-dimer CT DLP: 485.8 mGycm CONTRAST: CT chest with contrast and 3D reconstruction with MIP imaging is performed with IV Contrast, patient injected with 83cc mL of Isovue 300. Contrast-enhanced CT of the chest was performed through the course of the pulmonary arteries with roxanne g and mediastinal window settings submitted. 3D reconstruction with MIP imaging was also performed. PULMONARY ARTERIES: There are moderate filling defects noted to involve the lower and upper lobe pulm onary arterial branches bilaterally with greatest involvement of the lower lobes. Filling defects are seen in areas segmental and subsegmental branches bilaterally. No evidence for right heart strain at this time. LUNGS: The lungs are clear and free of infiltrate. No evidence for atelectasis. No pulmonary nodul e or mass is detected. No pleural effusion. There is bronchial wall thickening. Probable atelectasi s right lower lobe. MEDIASTINUM: Thoracic aorta is of normal caliber. The heart is not enlarged. No evidence for media stinal mass. No mediastinal lymph nodes greater than 1cm. HILAR STRUCTURES: No evidence for mass. No hilar lymph nodes greater than 1 cm. UPPER ABDOMEN: No significant abnormality is seen. IMPRESSION: 1. Moderate bilateral pulmonary embolism without evidence for right heart strain or saddle component .
[2022-11-09] MEDS ORDERED: HEPARIN SODIUM 1,000 UN/ML (10ML VL) IV ONE (19:14)
[2022-11-09] MEDS ORDERED: HEPARIN SODIUM 1,000 UN/ML (10ML VL) IV PRN (19:14)
[2022-11-09] MEDS ORDERED: NALOXONE 0.4 MG/ML 1 ML VIAL IV PRN (19:17)
[2022-11-09] MEDS: HEPARIN SOD,PORK IN 0.45% NACL 25,000 UNIT in 0.45% NACL 1 250ML.BAG IV SCH (19:29)
--- NOTE | 2022-11-09 20:39 | US ---
EXAMINATION TYPE: US venous doppler duplex LE BI DATE OF EXAM: 11/09/2022 8:19 PM COMPARISON: 04/19/20 CLINICAL INDICATION: Female, 81 years old with history of pe; Dx with PE. Hx of DVT in left leg in . Not on blood thinners currently SIDE PERFORMED: Bilateral TECHNIQUE: The lower extremity deep venous system is examined utilizing real time linear array sonog sanjay with graded compression, doppler sonography and color-flow sonography. VESSELS IMAGED: Common Femoral Vein Deep Femoral Vein Greater Saphenous Vein * Femoral Vein Popliteal Vein Small Saphenous Vein * Proximal Calf Veins (* superficial vessels) Right Leg: Echoes seen in the CFV through the distal femoral vein. No compression, but slight flow v isualized. Left Leg: No evidence of DVT IMPRESSION: DVT right lower extremity as noted.
[2022-11-10] MEDS: FLECAINIDE 50 MG TAB PO SCH ×3 (00:09→19:51)
[2022-11-10] MEDS: ATORVASTATIN 40 MG TAB PO SCH ×2 (00:09→19:51)
[2022-11-10 04:59] LABS: African American GFR (CKD) 67 (>60 ml/min/1.73 sqM); Anion Gap 7 mmol/L; Blood Urea Nitrogen 16 mg/dL (7-17); Calcium 9.4 mg/dL (8.4-10.2); Carbon Dioxide 22 mmol/L (22-30); Chloride 106 mmol/L (98-107); Glucose 129 mg/dL (74-99); Non-African American GFR(CKD) 58 (>60 ml/min/1.73 sqM); Sodium 135 mmol/L (137-145)
[2022-11-10 05:03] LABS: Potassium 4.7 mmol/L (3.5-5.1)
[2022-11-10 05:15] LABS: Basophils # (A) 0.1 k/uL (0-0.2); Basophils % (A) 1 %; Eosinophils # (A) 0.3 k/uL (0-0.7); Eosinophils % (A) 3 %; HCT 44.2 % (34.0-46.0); HGB 14.4 gm/dL (11.4-16.0); Lymphocytes # (A) 3.5 k/uL (1.0-4.8); Lymphocytes % (A) 28 %; MCH 29.7 pg (25.0-35.0); MCHC 32.6 g/dL (31.0-37.0); MCV 91.1 fL (80.0-100.0); Mean Platelet Volume 8.1; Monocytes # (A) 1.1 k/uL (0-1.0); Monocytes % (A) 9 %; Neutrophils # (A) 7.1 k/uL (1.3-7.7); Neutrophils % (A) 57 %; Platelet Count 208 k/uL (150-450); RBC 4.85 m/uL (3.80-5.40); RDW 12.7 % (11.5-15.5); WBC 12.5 k/uL (3.8-10.6)
[2022-11-10] MEDS: LEVOTHYROXINE 100 MCG TAB PO SCH (06:54)
[2022-11-10] MEDS: HEPARIN SOD,PORK IN 0.45% NACL 25,000 UNIT in 0.45% NACL 1 250ML.BAG IV SCH (10:06)
--- NOTE | 2022-11-10 10:16 | P.CRDCN ---
History of Present Illness History of present illness: HISTORY OF PRESENT ILLNESS: This is a 81-year-old female with a past medical history significant for hypertension, hyperlipidemia, DVT, pulmonary embolism, and ventricular tachycardia. Patient follows in the office with Dr. Barnett. We have been asked to see the patient in consultation for elevated troponin. Patient examined at the bedside. Patient states she has been feeling short of breath at home. She also reports feeling dizzy. She presented to the hospital for further evaluation. The patient was found to have bilateral pulmonary emboli and was started on IV heparin. She does have a history of DVT/PE after an ankle surgery, however she is not prescribed anticoagulation on an outpatient basis. At the time of examination, the patient reports minimal shortness of breath. She reports pain on the left side of her chest. Vital signs are stable. * EKG reveals sinus mechanism with no signs of acute ischemia. * Chest CTA: Moderate bilateral pulmonary embolism with no evidence for right heart strain or saddle component * Laboratory data: WBC 12.5. Hemoglobin 14.4. Platelet count 208. D-dimer 11.84. Sodium 135. Potassium 4.7. BUN 16. Creatinine 0.92. Troponin 0.826. ProBNP 495. * Current home cardiac medications include Flecainide 50 mg twice a day, lisinopril 10 mg daily, and atorvastatin 40 mg at night * Most recent echocardiogram obtained in December 2017 revealed ejection fraction 55%, mild MR, mild TR * Patient underwent Lexiscan stress test in September 2021 which was negative for ischemia REVIEW OF SYSTEMS: At the time of my exam: CONSTITUTIONAL: Denies fever or chills. HEENT: Denies blurred vision, vision changes, or eye pain. Denies hemoptysis CARDIOVASCULAR: Denies chest pain. Denies orthopnea. Denies PND. Denies palpitations RESPIRATORY: Denies shortness of breath. GASTROINTESTINAL: Denies abdominal pain. Denies nausea or vomiting. HEMATOLOGIC: Denies bleeding disorders. GENITOURINARY: Denies any blood in urine. SKIN: Denies pruitis. Denies rash. PHYSICAL EXAM: VITAL SIGNS: Reviewed. GENERAL: Well-developed in no acute distress. HEENT: Head is normocephalic. Pupils are equal, round. Sclerae anicteric. Mucous membranes of the mouth are moist. Neck supple. No JVD or thyromegaly LUNGS: Respirations even and unlabored. Lungs essentially clear to auscultation bilaterally. HEART: Regular rate and rhythm. S1 and S2 heard. ABDOMEN: Soft. Nondistended. Nontender. EXTREMITIES: Normal range of motion. No clubbing or cyanosis. Peripheral pulses intact. No lower extremity edema NEUROLOGIC: Awake and alert. Oriented x 3. ASSESSMENT: Shortness of breath with dizziness Bilateral pulmonary embolism Abnormal troponin, likely secondary to above, no evidence of acute coronary syndrome History of DVT/PE Hypertension Hyperlipidemia History of ventricular tachycardia, maintained on Flecainide outpatient PLAN: Obtain 2-D echo to assess cardiac structure and function Discontinue IV heparin Begin Eliquis 10mg BID Continue additional home cardiac medications Further recommendations pending patient's course Nurse practitioner note has been reviewed by physician. Signing provider agrees with the documented findings, assessment, and plan of care. Past Medical History Past Medical History: Atrial Fibrillation, Hyperlipidemia, Hypertension, Thyroid Disorder Additional Past Medical History / Comment(s): internal and external hemmorhoids, states hx of arrythmia and palpitations History of Any Multi-Drug Resistant Organisms: None Reported Past Surgical History: Breast Surgery, Cholecystectomy Additional Past Surgical History / Comment(s): hiatal hernia, breast bx, ankle surgery Past Anesthesia/Blood Transfusion Reactions: No Reported Reaction Past Psychological History: No Psychological Hx Reported Smoking Status: Never smoker Past Alcohol Use History: Rare Past Drug Use History: None Reported Medications and Allergies Home Medications Medication Instructions Recorded Confirmed Type Atorvastatin [Lipitor] 40 mg PO HS 11/26/14 11/09/22 History Levothyroxine Sodium [Synthroid] 100 mcg PO DAILY 11/26/14 11/09/22 History lisinopriL [Prinivil] 10 mg PO DAILY 04/19/20 11/09/22 History Flecainide [Tambocor] 50 mg PO BID 11/09/22 11/09/22 History Apixaban [Eliquis Starter Pack 5 - 10 mg PO DIRECTED 30 Days 11/10/22 Rx (for VTE)] #1 each Allergies Allergy/AdvReac Type Severity Reaction Status Date / Time No Known Allergies Allergy Verified 11/09/22 17:52 Physical Exam Vitals: Vital Signs Temp Pulse Resp BP Pulse Ox 11/10/22 04:00 72 20 151/90 98 11/09/22 22:22 94 18 147/93 100 11/09/22 18:32 84 18 163/93 98 11/09/22 16:01 97.4 F L 101 H 22 191/99 92 L Intake and Output 11/09/22 11/10/22 11/10/22 22:59 06:59 14:59 Intake Total 123.628 Balance 123.628 Intake: Intake, IV Titration 123.628 Amount Heparin Sod,Pork in 0.45% 123.628 NaCl 25,000 unit In 0.45 % NaCl 1 250ml.bag @ 18 UNITS/KG/HR 18.779 mls/hr IV .[id number] [facility] Rx#: [id number] Other: Weight 104.326 kg Results 11/10/22 04:13 11/10/22 04:13 Cardiac Enzymes 11/09/22 11/09/22 Range/Units 17:09 17:09 AST 34 (14-36) U/L Troponin I 0.826 H* (0.000-0.034) ng/mL Coagulation 11/09/22 11/10/22 Range/Units 17:09 00:46 PT 10.1 (9.0-12.0) sec APTT 23.6 >200.0 H* (22.0-30.0) sec CBC 11/09/22 11/10/22 Range/Units 17:09 04:13 WBC 11.8 H 12.5 H (3.8-10.6) k/uL RBC 5.00 4.85 (3.80-5.40) m/uL Hgb 14.8 14.4 (11.4-16.0) gm/dL Hct 45.6 44.2 (34.0-46.0) % Plt Count 229 208 (150-450) k/uL Comprehensive Metabolic Panel 11/09/22 11/10/22 Range/Units 17:09 04:13 Sodium 136 L 135 L (137-145) mmol/L Potassium 5.3 H 4.7 (3.5-5.1) mmol/L Chloride 104 106 (98-107) mmol/L Carbon Dioxide 24 22 (22-30) mmol/L BUN 18 H 16 (7-17) mg/dL Creatinine 1.10 H 0.92 (0.52-1.04) mg/dL Glucose 112 H 129 H (74-99) mg/dL Calcium 9.8 9.4 (8.4-10.2) mg/dL AST 34 (14-36) U/L ALT 28 (4-34) U/L Alkaline Phosphatase 124 (38-126) U/L Total Protein 7.5 (6.3-8.2) g/dL Albumin 4.0 (3.5-5.0) g/dL Current Medications Generic Name Dose Route Start Last Admin Trade Name Freq PRN Reason Stop Dose Admin Apixaban 10 mg 11/10/22 10:00 Apixaban 5 Mg Tab PO 12/10/22 08:59 BID VENU Taper Atorvastatin Calcium 40 mg 11/09/22 23:15 11/10/22 00:09 Atorvastatin 40 Mg Tab PO 40 mg HS VENU Administration Flecainide Acetate 50 mg 11/09/22 23:15 11/10/22 00:09 Flecainide 50 Mg Tab PO 50 mg BID VENU Administration Levothyroxine Sodium 100 mcg 11/10/22 06:30 11/10/22 06:54 Levothyroxine 100 Mcg Tab PO 100 mcg DAILY@0630 VENU Administration Lisinopril 10 mg 11/10/22 09:00 Lisinopril 10 Mg Tab PO DAILY VENU Naloxone HCl 0.2 mg 11/09/22 19:17 Naloxone 0.4 Mg/Ml 1 Ml Vial IV Q2M PRN Opioid Reversal Intake and Output 11/09/22 11/10/22 11/10/22 22:59 06:59 14:59 Intake Total 123.628 Balance 123.628 Intake: Intake, IV Titration 123.628 Amount Heparin Sod,Pork in 0.45% 123.628 NaCl 25,000 unit In 0.45 % NaCl 1 250ml.bag @ 18 UNITS/KG/HR 18.779 mls/hr IV .[id number] [facility] Rx#: [id number] Other: Weight 104.326 kg 11/10/22 04:13 11/10/22 04:13
[2022-11-10] MEDS: lisinopriL 10 MG TAB PO SCH (10:23)
[2022-11-10] MEDS: APIXABAN 5 MG TAB PO SCH ×2 (10:23→19:51)
--- NOTE | 2022-11-10 11:25 | CA ---
Transthoracic Echo Report Name: Cheri Infante Age: 81 Gender: F : 1940 Exam Date: 11/10/2022 09:31 Exam Location: [facility] Ht (in): 70 Wt (lb): 230 Ordering Physician: Tonya Zabala Attending/Referring Phys: [id number], [employer] Topher Barbour Procedure CPT: Indications: LV function, b/l PE Cardiac Hx: Technical Quality: Technically difficult study Contrast 1: Total Dose (mL): Contrast 2: Total Dose (mL): MEASUREMENTS (Male / Female) Normal Values 2D ECHO LV Diastolic Diameter PLAX 4.1 cm 4.2 - 5.9 / 3.9 - 5.3 cm LV Systolic Diameter PLAX 2.6 cm IVS Diastolic Thickness 1.1 cm 0.6 - 1.0 / 0.6 - 0.9 cm LVPW Diastolic Thickness 0.9 cm 0.6 - 1.0 / 0.6 - 0.9 cm LV Relative Wall Thickness 0.5 RV Internal Dim ED PLAX 3.3 cm LVOT Diameter 1.9 cm Aortic Root Diameter 2.9 cm LA Systolic Diameter LX 2.3 cm 3.0 - 4.0 / 2.7 - 3.8 cm LV Diastolic Volume MOD 4C 76.3 cm??? LV Systolic Volume MOD 4C 40.8 cm??? LV Ejection Fraction MOD 4C 46.5 % LV Diastolic Length 4C 7.5 cm LV Systolic Length 4C 6.6 cm DOPPLER AV Peak Velocity 133.1 cm/s AV Peak Gradient 7.1 mmHg LVOT Peak Velocity 110.9 cm/s LVOT Peak Gradient 4.9 mmHg AV Area Cont Eq pk 2.4 cm??? MV Peak Velocity 79.3 cm/s MV Peak Gradient 2.5 mmHg MV Mean Velocity 42.2 cm/s MV Mean Gradient 0.9 mmHg MV Velocity Time Integral 29.4 cm Mitral E Point Velocity 60.2 cm/s Mitral A Point Velocity 81.9 cm/s Mitral E to A Ratio 0.7 MV Deceleration Time 324.0 ms MV E' Velocity 5.4 cm/s Mitral E to MV E' Ratio 11.2 TR Peak Velocity 293.0 cm/s TR Peak Gradient 34.3 mmHg Right Ventricular Systolic Press 39.7 mmHg PV Peak Velocity 98.8 cm/s PV Peak Gradient 3.9 mmHg FINDINGS Left Ventricle Devante LV size and wall thickness. Left ventricular ejection fraction is estimated at _50-55%. Right Ventricle Normal right ventricular size. RVSP= 49mmhg. Right Atrium Normal right atrial size. Left Atrium Normal left atrial size. Mitral Valve Mitral valve not well visualized but grossly normal. No mitral regurgitation. Aortic Valve Aortic valve not well visualized but grossly normal. No aortic valve stenosis or regurgitation. Tricuspid Valve Structurally normal tricuspid valve. Mild TR. Pulmonic Valve Pulmonic valve not well visualized. No pulmonic regurgitation. Pericardium Normal pericardium. Aorta Normal size aortic root . CONCLUSIONS Normal LV size and systolic function Previewed by: Dr. Prabhu Alvarado MD (Electronically Signed) Final Date: 10 November 2022 11:24
--- NOTE | 2022-11-10 14:55 | P.HPIM ---
History of Present Illness H&P Date: 11/10/22 This is a pleasant 81-year-old female who presented to the emergency department via EMS reporting sudden onset of shortness of breath and lightheadedness. Patient states she woke up feeling short of breath and was unable to walk to the bathroom without becoming extremely short of breath and called 911. Patient lives alone and reports she has wonderful neighbors that checkup on her frequently. Patient follows with Dr. Muhammad in the outpatient setting with a past medical history of atrial fibrillation, hyperlipidemia, hypertension, thyroid disorder, and obesity. Patient reports she had a DVT of the lower extremity following a surgery and was on anticoagulation in the form of eliquis for approximately 3 months and was taken off of it. Patient also reported the medication was extremely expensive. Patient came to the hospital requiring oxygen and was noted to have an elevated d-dimer of 11 and underwent CTA which showed moderate bilateral pulmonary embolism without evidence for right heart strain or saddle component. Patient also underwent Doppler showing a right leg DVT. Patient was placed on heparin and admitted for PE. Troponins were elevated at 0.826 and BNP was 495. Cardiology was consulted as well. Review Of Systems: Constitutional: No fever, no chills, no night sweats. No weight change. No weakness, fatigue or lethargy. No daytime sleepiness. EENT: No headache. No blurred vision or double vision, no loss of vision. No loss of Hearing, no ringing in the ears, no dizziness. No nasal drainage or congestion. No epistaxis. No sore throat. Lungs: Reports shortness of breath, no cough, no sputum production. No wheezing. Cardiovascular: No reports of chest pain, no lower extremity edema. No palpitations. No paroxysmal nocturnal dyspnea. No orthopnea. No lightheadedness or dizziness. No syncopal episodes. Abdominal: No abdominal pain. No nausea, vomiting. No diarrhea. No constipation. No bloody or tarry stools.. No loss of appetite. Genitourinary: No dysuria, increased frequency, urgency. No urinary retention. Musculoskeletal: No myalgias. No muscle weakness, no gait dysfunction, no frequent falls. No back pain. No neck pain. Integumentary: No wounds, no lesions. No rash or pruritus. No unusual bruising. No change in hair or nails. Neurologic: No aphasia. No facial droop. No change in mentation. No head injury. No headache. No paralysis. No paresthesia. Psychiatric: No depression. No anxiety. No mood swings. Endocrine: No abnormal blood sugars. No weight change. No excessive sweating or thirst. No cold intolerance. PHYSICAL EXAMINATION: GENERAL: The patient is alert and oriented x4, Well developed, well nourished. Obese HEENT: Pupils are round and equally reacting to light. EOMI. no scleral icterus. No conjunctival pallor. Normocephalic, atraumatic. No pharyngeal erythema. No thyromegaly. CARDIOVASCULAR: S1 and S2 muffled PULMONARY: diminished breath sounds bilaterally with no wheezing or rhonchi n oted. ABDOMEN: soft. Nontender on exam. obese. non-distended, normoactive bowel sounds. No palpable organomegaly. MUSCULOSKELETAL: No joint swelling or deformity. EXTREMITIES: No cyanosis, clubbing, or pedal edema. NEUROLOGICAL: Gross neurological examination did not reveal any focal deficits. Diffuse weakness SKIN: No rashes. Assessment: Shortness of breath with acute hypoxic respiratory failure, secondary to bilateral PE with no evidence of heart strain Mild elevation in troponin, most likely secondary to PE, ACS ruled out by cardiology Right lower extremity DVT History of DVT in the past not on anticoagulation History of ventricular tachycardia, maintained on flecainide outpatient Hyperlipidemia history Hypertension history Hypothyroidism Obesity with a BMI of 33.0 GI prophylaxis DVT prophylaxis Full code Plan: Patient was placed on IV heparin and cardiology consulted as patient did have mild elevation in troponin and ACS ruled out with cardiology following. Patient being transition to [facility]. Case management consulted to verify coverage as patient reports she was on this previously and it was way too expensive to afford. 2-D echo ordered and pending. CTA showed no evidence of right heart strain Patient currently continued on 3 L of oxygen via nasal cannula reporting shortness of breath. Wean FiO2 as tolerated. Will perform home O2 tests prior to discharge to see if patient qualifies for oxygen We'll monitor overnight as patient continues to report significant shortness of breath with possible discharge in 24 hours Home medications reviewed and resumed Encouraged increased activity as tolerated The impression and plan of care has been dictated by Kaela Corado, nurse practitioner as directed. Dr. Tanya MD I have performed a history and examination and MDM of this patient, discussed the same with the dictator, and agree with the dictator's assessment and plan as written ,documented as a scribe. Based on total visit time, I have performed more than 50% of the visit. Any additional findings or plans will be noted. Past Medical History Past Medical History: Atrial Fibrillation, Hyperlipidemia, Hypertension, Thyroid Disorder Additional Past Medical History / Comment(s): internal and external hemmorhoids, states hx of arrythmia and palpitations History of Any Multi-Drug Resistant Organisms: None Reported Past Surgical History: Breast Surgery, Cholecystectomy Additional Past Surgical History / Comment(s): hiatal hernia, breast bx, ankle surgery Past Anesthesia/Blood Transfusion Reactions: No Reported Reaction Past Psychological History: No Psychological Hx Reported Smoking Status: Never smoker Past Alcohol Use History: Rare Past Drug Use History: None Reported Medications and Allergies Home Medications Medication Instructions Recorded Confirmed Type Atorvastatin [Lipitor] 40 mg PO HS 11/26/14 11/09/22 History Levothyroxine Sodium [Synthroid] 100 mcg PO DAILY 11/26/14 11/09/22 History lisinopriL [Prinivil] 10 mg PO DAILY 04/19/20 11/09/22 History Flecainide [Tambocor] 50 mg PO BID 11/09/22 11/09/22 History Apixaban [Eliquis Starter Pack 5 - 10 mg PO DIRECTED 30 Days 11/10/22 Rx (for VTE)] #1 each Allergies Allergy/AdvReac Type Severity Reaction Status Date / Time No Known Allergies Allergy Verified 11/09/22 17:52 Physical Exam Vitals: Vital Signs Temp Pulse Resp BP Pulse Ox 11/10/22 04:00 72 20 151/90 98 11/09/22 22:22 94 18 147/93 100 11/09/22 18:32 84 18 163/93 98 11/09/22 16:01 97.4 F L 101 H 22 191/99 92 L Intake and Output 11/09/22 11/10/22 11/10/22 22:59 06:59 14:59 Intake Total 123.628 Balance 123.628 Intake: Intake, IV Titration 123.628 Amount Heparin Sod,Pork in 0.45% 123.628 NaCl 25,000 unit In 0.45 % NaCl 1 250ml.bag @ 18 UNITS/KG/HR 18.779 mls/hr IV .[id number] [facility] Rx#: [id number] Other: Weight 104.326 kg Results CBC & Chem 7: 11/10/22 04:13 11/10/22 04:13 Labs: Abnormal Lab Results - Last 24 Hours (Table) 11/09/22 11/09/22 11/09/22 Range/Units 17:09 17:09 17:09 WBC 11.8 H (3.8-10.6) k/uL Neutrophils # 8.5 H (1.3-7.7) k/uL Monocytes # (0-1.0) k/uL APTT (22.0-30.0) sec D-Dimer 11.84 H (<0.60) mg/L FEU Sodium 136 L (137-145) mmol/L Potassium 5.3 H (3.5-5.1) mmol/L BUN 18 H (7-17) mg/dL Creatinine 1.10 H (0.52-1.04) mg/dL Glucose 112 H (74-99) mg/dL Troponin I (0.000-0.034) ng/mL Urine Blood (Negative) Ur Leukocyte Esterase (Negative) Urine Bacteria (None) /hpf Urine Mucus (None) /hpf 11/09/22 11/09/22 11/10/22 Range/Units 17:09 17:17 00:46 WBC (3.8-10.6) k/uL Neutrophils # (1.3-7.7) k/uL Monocytes # (0-1.0) k/uL APTT >200.0 H* (22.0-30.0) sec D-Dimer (<0.60) mg/L FEU Sodium (137-145) mmol/L Potassium (3.5-5.1) mmol/L BUN (7-17) mg/dL Creatinine (0.52-1.04) mg/dL Glucose (74-99) mg/dL Troponin I 0.826 H* (0.000-0.034) ng/mL Urine Blood Small H (Negative) Ur Leukocyte Esterase Small H (Negative) Urine Bacteria Rare H (None) /hpf Urine Mucus Rare H (None) /hpf 11/10/22 11/10/22 Range/Units 04:13 04:13 WBC 12.5 H (3.8-10.6) k/uL Neutrophils # (1.3-7.7) k/uL Monocytes # 1.1 H (0-1.0) k/uL APTT (22.0-30.0) sec D-Dimer (<0.60) mg/L FEU Sodium 135 L (137-145) mmol/L Potassium (3.5-5.1) mmol/L BUN (7-17) mg/dL Creatinine (0.52-1.04) mg/dL Glucose 129 H (74-99) mg/dL Troponin I (0.000-0.034) ng/mL Urine Blood (Negative) Ur Leukocyte Esterase (Negative) Urine Bacteria (None) /hpf Urine Mucus (None) /hpf Thrombosis Risk Factor Assmnt - DVT/VTE Prophylaxis DVT/VTE Prophylaxis: Pharmacologic Prophylaxis ordered Assessment and Plan Time with Patient: Greater than 30
[2022-11-11] MEDS: LEVOTHYROXINE 100 MCG TAB PO SCH (06:06)
[2022-11-11 07:24] LABS: Basophils % (A) 0 %; Eosinophils # (A) 0.3 k/uL (0-0.7); Eosinophils % (A) 2 %; HCT 40.9 % (34.0-46.0); HGB 13.3 gm/dL (11.4-16.0); Lymphocytes # (A) 2.4 k/uL (1.0-4.8); Lymphocytes % (A) 20 %; MCH 29.8 pg (25.0-35.0); MCHC 32.5 g/dL (31.0-37.0); MCV 91.6 fL (80.0-100.0); Mean Platelet Volume 7.9; Monocytes # (A) 1.1 k/uL (0-1.0); Monocytes % (A) 9 %; Neutrophils # (A) 7.9 k/uL (1.3-7.7); Neutrophils % (A) 66 %; Platelet Count 218 k/uL (150-450); RBC 4.46 m/uL (3.80-5.40); RDW 12.9 % (11.5-15.5)
[2022-11-11 07:34] LABS: African American GFR (CKD) 62 (>60 ml/min/1.73 sqM); Anion Gap 7 mmol/L; Blood Urea Nitrogen 11 mg/dL (7-17); Carbon Dioxide 22 mmol/L (22-30); Chloride 104 mmol/L (98-107); Glucose 110 mg/dL (74-99); Non-African American GFR(CKD) 54 (>60 ml/min/1.73 sqM); Potassium 4.4 mmol/L (3.5-5.1); Sodium 133 mmol/L (137-145)
[2022-11-11] MEDS: FLECAINIDE 50 MG TAB PO SCH (08:40)
[2022-11-11] MEDS: lisinopriL 10 MG TAB PO SCH (08:40)
[2022-11-11] MEDS: APIXABAN 5 MG TAB PO SCH (08:40)
[2022-11-11 09:30] VITALS: TEMP 97.6
[2022-11-11] MEDS ORDERED: METOPROLOL SUCCINATE (ER) 25 MG TAB.ER.24H PO SCH (10:00)
--- NOTE | 2022-11-11 11:04 | CDI ---
Documentation Clarification Form Date: From: Tanisha Hager Phone: [phone] Admit Date: 11/09/2022 07:18:00 PM Patient Name: Cheri Infante Visit Number: [id number] Discharge Date: ATTENTION: The Clinical Documentation Specialists (CDI) and [facility] Coding Staff appreciate your assistance in clarifying documentation. Please respond to the clarification below the line at the bottom and electronically sign. The CDI & [facility] Coding staff will review the response and follow-up if needed. Please note: Queries are made part of the Legal Health Record. If you have any questions, please contact the author of this message via ITS. Dr. Shahab Alcaraz There is documentation of "Mild elevation in troponin, most likely secondary to PE" in the H&P dated 11/10. Additional clarification is requested. History/Risk Factors: "81-year-old female who presented to the emergency department via EMS reporting sudden onset of shortness of breath and lightheadedness. Patient states she woke up feeling short of breath and was unable to walk to the bathroom without becoming extremely short of breath and called 911." - Per H&P on 11/10 "She does have a history of DVT/PE after an ankle surgery, however she is not prescribed anticoagulation on an outpatient basis" - Per Cardiology Note on 11/10 Clinical Indicators: "Patient states she has been feeling short of breath at home." "She reports pain on the left side of her chest" "Bilateral pulmonary embolism" "Abnormal troponin, likely secondary to above, no evidence of acute coronary syndrome" - Per Cardiology Note on 11/10 Vitals: 11/09 - Temp. 74.4, HR 101, RR 22, BP 191/99, O2 92% on Room Air Troponin I 11/09 - 0.826 11/10 - 0.386 Chest CTA: Moderate bilateral pulmonary embolism with no evidence for right heart strain or saddle component Treatment: Per Cardiology Note on 11/10 "Obtain 2-D echo to assess cardiac structure and function Discontinue IV heparin Begin Eliquis 10mg BID Continue additional home cardiac medications" Can you please clarify the diagnosis? [ ] Type 2 OR due to (specify cause ____) [ ] Non-ischemic with acute myocardial injury [ ] No additional diagnosis/Not clinically significant [ ] Other, please specify [ ] Unable to determine not mine MTDD
--- NOTE | 2022-11-11 12:54 | P.PN ---
Subjective HISTORY OF PRESENT ILLNESS: This is a 81-year-old female with a past medical history significant for hypertension, hyperlipidemia, DVT, pulmonary embolism, and ventricular tachycardia. Patient follows in the office with Dr. Barnett. We have been asked to see the patient in consultation for elevated troponin. Patient examined at the bedside. Patient states she has been feeling short of breath at home. She also reports feeling dizzy. She presented to the hospital for further evaluation. The patient was found to have bilateral pulmonary emboli and was started on IV heparin. She does have a history of DVT/PE after an ankle surgery, however she is not prescribed anticoagulation on an outpatient basis. At the time of examination, the patient reports minimal shortness of breath. She reports pain on the left side of her chest. Vital signs are stable. * EKG reveals sinus mechanism with no signs of acute ischemia. * Chest CTA: Moderate bilateral pulmonary embolism with no evidence for right heart strain or saddle component * Laboratory data: WBC 12.5. Hemoglobin 14.4. Platelet count 208. D-dimer 11.84. Sodium 135. Potassium 4.7. BUN 16. Creatinine 0.92. Troponin 0.826. ProBNP 495. * Current home cardiac medications include Flecainide 50 mg twice a day, lisinopril 10 mg daily, and atorvastatin 40 mg at night * Most recent echocardiogram obtained in December 2017 revealed ejection fraction 55%, mild MR, mild TR * Patient underwent Lexiscan stress test in September 2021 which was negative for ischemia 11/11/2022 Patient examined this morning at the bedside. Patient denies chest pain or pressure. She denies shortness of breath. Vital signs are stable. Echocardiogram completed revealing ejection fraction 50-55% normal right ventricular size, RVSP 49 mmHg, and mild TR. PHYSICAL EXAM: VITAL SIGNS: Reviewed. GENERAL: Well-developed in no acute distress. HEENT: Head is normocephalic. Pupils are equal, round. Sclerae anicteric. Mucous membranes of the mouth are moist. Neck supple. No JVD or thyromegaly LUNGS: Respirations even and unlabored. Lungs essentially clear to auscultation bilaterally. HEART: Regular rate and rhythm. S1 and S2 heard. ABDOMEN: Soft. Nondistended. Nontender. EXTREMITIES: Normal range of motion. No clubbing or cyanosis. Peripheral pulses intact. No lower extremity edema NEUROLOGIC: Awake and alert. Oriented x 3. ASSESSMENT: Shortness of breath with dizziness Bilateral pulmonary embolism Abnormal troponin, likely secondary to above, no evidence of acute coronary syndrome History of DVT/PE Hypertension Hyperlipidemia History of ventricular tachycardia, maintained on Flecainide outpatient PLAN: Continue current cardiac medications Add metoprolol succinate 25mg daily Patient may be discharged home today from a cardiac standpoint Patient follow-up post discharge with Dr. Barnett Nurse practitioner note has been reviewed by physician. Signing provider agrees with the documented findings, assessment, and plan of care. Objective - Vital Signs Vital signs: Vital Signs Temp 97.6 F 11/11/22 08:00 Pulse 74 11/11/22 08:00 Resp 20 11/11/22 08:00 BP 135/80 11/11/22 08:00 Pulse Ox 99 11/11/22 08:00 FiO2 Intake & Output 11/10/22 11/11/22 11/11/22 18:59 06:59 18:59 Intake Total 150 10 420 Balance 150 10 420 Weight 102 kg Intake: IV 10 Invasive Line 1 10 Oral 150 420 Other: Voiding Method Bedside Commode Bedside Commode # Voids 1 # Bowel Movements 1 - Labs CBC & Chem 7: 11/11/22 06:32 11/11/22 06:32 Labs: Abnormal Lab Results - Last 24 Hours (Table) 11/11/22 11/11/22 Range/Units 06:32 06:32 WBC 12.0 H (3.8-10.6) k/uL Neutrophils # 7.9 H (1.3-7.7) k/uL Monocytes # 1.1 H (0-1.0) k/uL Sodium 133 L (137-145) mmol/L Glucose 110 H (74-99) mg/dL
[2022-11-11 15:36] VITALS: BP 125/69; PULSE 66; RESP 16
--- NOTE | 2022-11-13 20:18 | P.DS ---
Providers Date of admission: 11/09/22 19:18 Expected date of discharge: 11/11/22 Attending physician: Shahab Alcaraz Consults: 11/09/22 19:17 Consult Physician Urgent Consulting Provider: [facility] Consult Reason/Comments: acute b/l pe, elevated trop Do you want consulting provider notified?: Already Contacted Primary care physician: Shadi Muhammad Hospital Course: Final diagnosis Shortness of breath with acute hypoxic respiratory failure, secondary to bilateral PE with no evidence of heart strain Mild elevation in troponin, type II NC most likely secondary to PE, ACS ruled out by cardiology Right lower extremity DVT History of DVT in the past not on anticoagulation History of ventricular tachycardia, maintained on flecainide outpatient Hyperlipidemia history Hypertension history Hypothyroidism Obesity with a BMI of 33.0 GI prophylaxis DVT prophylaxis Full code Discharge disposition Patient is being discharged in a stable condition with guarded prognosis to home. Patient will follow-up with Dr. Muhammad in the outpatient setting upon discharge. Patient is to continue with eliquis 10 mg twice daily for the next 6 days along with titrating the dose down to 5 twice daily thereafter and close outpatient follow-up with cardiology and pulmonary as scheduled. Total time taken is greater than 35 minutes. Hospital course This is a 81-year-old female who was recently admitted with shortness of breath found to have bilateral PE with no heart strain along with right lower extremity DVT. Patient had history of DVT in the past from ankle surgery and was briefly on oral anticoagulation and had been taken off. Patient developed sudden onset shortness of breath underwent CTA which was positive for bilateral PE. Patient initiated on heparin and transitioned oral anticoagulant. Patient evaluated by cardiology as patient had a mild elevation in troponin most likely type II myocardial infarction secondary to the PE. Patient with no chest pain. Patient did have shortness of breath requiring oxygen and does not normally wear oxygen outpatient. Patient monitored overnight with improvement in breathing and does not qualify for home oxygen. Patient will be discharged home and instructed to follow-up with cardiology along with pulmonary outpatient. Currently no reports of chest pain, shortness of breath, or palpitations. Patient is afebrile. No reports of nausea or vomiting and patient is tolerating diet. Patient will be discharged home today. Guarded prognosis. Physical exam: Gen: This is a 81-year-old female who is awake, alert and oriented 3, well- developed, well-nourished, obese HEENT: Head is atraumatic, normocephalic. Pupils equal, round. Sclerae is anicteric. NECK: Supple. No JVD. No lymphadenopathy. No thyromegaly. LUNGS: Diminished breath sounds bilaterally with no wheezes , some scattered rhonchi. No intercostal retractions. HEART: Regular rate and rhythm. No murmur. ABDOMEN: Soft. Bowel sounds are present. No masses. No tenderness. EXTREMITIES: No pedal edema. No calf tenderness. NEUROLOGICAL: Patient is awake, alert and oriented x3. Cranial nerves 2 through 12 are grossly intact. Please refer to medication reconciliation sheet for a list of medications. The impression and plan of care has been dictated by Kaela Corado, Nurse Practitioner as directed. MD Nohemi I have performed a history and examination and MDM of this patient, discussed the same with the dictator, and agree with the dictator's assessment and plan as written ,documented as a scribe. Based on total visit time, I have performed more than 50% of the visit. Patient Condition at Discharge: Stable Plan - Discharge Summary Discharge Rx Participant: Yes New Discharge Prescriptions: New Apixaban [Eliquis Starter Pack (for VTE)] 5 - 10 mg PO DIRECTED 30 Days #1 each Metoprolol Succinate (ER) [Toprol XL] 25 mg PO DAILY #90 tab Continue Levothyroxine Sodium [Synthroid] 100 mcg PO DAILY Atorvastatin [Lipitor] 40 mg PO HS lisinopriL [Prinivil] 10 mg PO DAILY Flecainide [Tambocor] 50 mg PO BID Discharge Medication List Atorvastatin [Lipitor] 40 mg PO HS 11/26/14 [History] Levothyroxine Sodium [Synthroid] 100 mcg PO DAILY 11/26/14 [History] lisinopriL [Prinivil] 10 mg PO DAILY 04/19/20 [History] Flecainide [Tambocor] 50 mg PO BID 11/09/22 [History] Apixaban [Eliquis Starter Pack (for VTE)] 5 - 10 mg PO DIRECTED 30 Days #1 each 11/10/22 [Rx] Metoprolol Succinate (ER) [Toprol XL] 25 mg PO DAILY #90 tab 11/11/22 [Rx] Follow up Appointment(s)/Referral(s): Shadi Muhammad MD [Primary Care Provider] - 11/15/22 3:40 pm Clinton Fajardo MD [STAFF PHYSICIAN] - 11/18/22 8:45 am Jodi Christine MD [STAFF PHYSICIAN] - 3 Weeks (please call office to set up appointment to be seen in 3 weeks ) Patient Instructions/Handouts: Pulmonary Embolism (DC), Pulmonary Embolism (GEN) Activity/Diet/Wound Care/Special Instructions: Meals on Wheels/[place] [facility] [phone] [facility] Home Delivered Meals: [phone] Discharge Disposition: HOME SELF-CARE
== END 2022-11-11 15:35 | disposition home or self-care (01) ==
LOC: EC 15:58 → INTOOBSV 19:18 → 3SCARD 19:18 → UNDODISIN 11-11 15:35
PROVIDERS: ADMIT Hospitalist; ATTEND Hospitalist
DX: J96.01 Acute respiratory failure with hypoxia (principal); I26.99 Other pulmonary embolism without acute cor pulmonale; I82.412 Acute embolism and thrombosis of left femoral vein; I21.A1 Myocardial infarction type 2; I48.91 Unspecified atrial fibrillation; E78.5 Hyperlipidemia, unspecified; I10 Essential (primary) hypertension; I47.20 Ventricular tachycardia, unspecified; E03.9 Hypothyroidism, unspecified; E66.9 Obesity, unspecified; Z68.33 Body mass index [BMI] 33.0-33.9, adult; Z86.718 Personal history of other venous thrombosis and embolism; Z86.711 Personal history of pulmonary embolism; Z79.899 Other long term (current) drug therapy; Z79.890 Hormone replacement therapy
CPT/HCPCS: 96365; 96366 ×2; 99285; 36415; 94760; 93005 ×2; 93306; 85379; 83880; 80053; 80048 ×2; 83605; 83735; 84484 ×2; 85025 ×3; 85610; 85730 ×2; 81001; 93970; 71275; G0378 ×3; J1644 ×2; Q9967; 96375; 99291

== ENCOUNTER 2023-09-04 18:49 | Emergency (ER) | payer MEDICARE ==
--- NOTE | 2023-09-04 20:00 | ED ---
ENT HPI - General Chief complaint: ENT Stated complaint: Throat Pain Time Seen by Provider: 09/04/23 19:30 Source: patient, RN notes reviewed Mode of arrival: ambulatory Limitations: no limitations - History of Present Illness Initial comments: 82-year-old female presenting with foreign body sensation in throat x 2 hours. Patient reports she was eating pulled pork with mashed potatoes and cottage cheese when she began to feel like the "food was piling up in her chest". She vomited 3 times which relieved most of the pain however reports there a sen sation of indigestion remains in the center of her lower chest. She tried to drink water at home but it felt like it made the pain worse. She is concerned about her heart at this time. She has history of atrial fibrillation, hypertension, hyperlipidemia, and PEs. She is currently taking Eliquis. Denies abdominal pain, fever, diarrhea, constipation. She has a history of a hiatal hernia but reports she has not had this sensation before. - Related Data Home Medications Medication Instructions Recorded Confirmed Atorvastatin [Lipitor] 40 mg PO HS 11/26/14 11/09/22 Levothyroxine Sodium [Synthroid] 100 mcg PO DAILY 11/26/14 11/09/22 lisinopriL [Prinivil] 10 mg PO DAILY 04/19/20 11/09/22 Flecainide [Tambocor] 50 mg PO BID 11/09/22 11/09/22 Previous Rx's Medication Instructions Recorded Apixaban [Eliquis Starter Pack 5 - 10 mg PO DIRECTED 30 Days 11/10/22 (for VTE)] #1 each Metoprolol Succinate (ER) [Toprol 25 mg PO DAILY #90 tab 11/11/22 XL] Allergies Allergy/AdvReac Type Severity Reaction Status Date / Time No Known Allergies Allergy Verified 09/04/23 19:04 Review of Systems ROS Statement: Those systems with pertinent positive or pertinent negative responses have been documented in the HPI. ROS Other: All systems not noted in ROS Statement are negative. Past Medical History Past Medical History: Atrial Fibrillation, Hyperlipidemia, Hypertension, Thyroid Disorder Additional Past Medical History / Comment(s): internal and external hemmorhoids, states hx of arrythmia and palpitations History of Any Multi-Drug Resistant Organisms: None Reported Past Surgical History: Breast Surgery, Cholecystectomy Additional Past Surgical History / Comment(s): hiatal hernia, breast bx, ankle surgery Past Anesthesia/Blood Transfusion Reactions: No Reported Reaction Past Psychological History: No Psychological Hx Reported Smoking Status: Never smoker Past Alcohol Use History: Rare Past Drug Use History: None Reported - Past Family History Father Family Medical History: Cancer Mother Additional Family Medical History / Comment(s): dementia General Exam Limitations: no limitations General appearance: alert, in no apparent distress Head exam: Present: atraumatic, normocephalic, normal inspection Eye exam: Present: normal appearance, PERRL, EOMI. Absent: scleral icterus, conjunctival injection, periorbital swelling ENT exam: Present: normal exam, normal oropharynx, mucous membranes moist Neck exam: Present: normal inspection. Absent: tenderness, meningismus, lymphadenopathy Respiratory exam: Present: normal lung sounds bilaterally. Absent: respiratory distress, wheezes, rales, rhonchi, stridor Cardiovascular Exam: Present: regular rate, normal rhythm, normal heart sounds. Absent: systolic murmur, diastolic murmur, rubs, gallop, clicks GI/Abdominal exam: Present: soft, normal bowel sounds. Absent: distended, tenderness, guarding, rebound, rigid Extremities exam: Present: normal inspection, full ROM, normal capillary refill. Absent: tenderness, pedal edema, joint swelling, calf tenderness Neurological exam: Present: alert, oriented X3, CN II-XII intact Psychiatric exam: Present: normal affect, normal mood Skin exam: Present: warm, dry, intact, normal color. Absent: rash Course Vital Signs 09/04/23 19:02 Temperature 97.3 F L Pulse Rate 72 Respiratory 20 Rate Blood Pressure 188/92 O2 Sat by Pulse 100 Oximetry Medical Decision Making - Medical Decision Making Was pt. sent in by a medical professional or institution (, PA, TRAVEL REGISTERED NURSE PACU, urgent care, hospital, or intermediate...) When possible be specific @ -No Did you speak to anyone other than the patient for history (EMS, parent, family, police, friend...)? What history was obtained from this source @ -No Did you review nursing and triage notes (agree or disagree)? Why? @ -I reviewed and agree with nursing and triage notes Were old charts reviewed (outside hosp., previous admission, EMS record, old E KG, old radiological studies, urgent care reports/EKG's, intermediate records)? Report findings @ -No old charts were reviewed Differential Diagnosis (chest pain, altered mental status, abdominal pain women, abdominal pain men, vaginal bleeding, weakness, fever, dyspnea, syncope, headache, dizziness, GI bleed, back pain, seizure, CVA, palpatations, mental health, musculoskeletal)? @ -Differential Chest Pain: Stable Angina, Unstable Angina, STEMI, NSTEMI Aortic Dissection, Pneumothorax, Musculoskeletal, Esophageal Spasm GERD, Cholecystitis, Pancreatitis, Zoster, this is not meant to be an all-inclusive list. EKG interpreted by me (3pts min.). @ -As above X-rays interpreted by me (1pt min.). @ -Chest x-ray reveals no acute process CT interpreted by me (1pt min.). @ -None done U/S interpreted by me (1pt. min.). @ -None done What testing was considered but not performed or refused? (CT, X-rays, U/S, labs)? Why? @ -None What meds were considered but not given or refused? Why? @ -None Did you discuss the management of the patient with other professionals (professionals i.e. , PA, TRAVEL REGISTERED NURSE PACU, lab, RT, psych nurse, outreach and education social worker, vector control specialist, teacher, postal delivery officer, resource development manager)? Give summary @ -No Was smoking cessation discussed for >3mins.? @ -No Was critical care preformed (if so, how long)? @ -No Were there social determinants of health that impacted care today? How? (Homelessness, low income, unemployed, alcoholism, drug addiction, transportation, low edu. Level, literacy, decrease access to med. care, custodial, rehab)? @ -No Was there de-escalation of care discussed even if they declined (Discuss DNR or withdrawal of care, Hospice)? DNR status @ -No What co-morbidities impacted this encounter? (DM, HTN, Smoking, COPD, CAD, Cancer, CVA, ARF, Chemo, Hep., AIDS, mental health diagnosis, sleep apnea, morbid obesity)? @ -None Was patient admitted / discharged? Hospital course, mention meds given and route, prescriptions, significant lab abnormalities, going to OR and other pertinent info. @ -Patient was seen and evaluated for foreign body sensation in esophagus. Patient felt as though there was food stuck in her esophagus during the meal and vomited 3 times. She reports she continues to have lower chest discomfort. Vital signs are remarkable for blood pressure elevated at 188/92, however otherwise unremarkable. Physical examination is unremarkable. Patient is in no acute distress. Patient was given GI cocktail consisting of Pepcid, Maalox, and Protonix. She was also given a raul bahman. EKG revealed normal sinus rhythm with no ST changes. Chest x-ray revealed no acute process. Lab work including CBC, CMP, troponin, and magnesium was unremarkable. Upon reevaluation patient reports symptoms have resolved. Patient was able to drink an entire can of binders with no issues. Discussed with patient that there are no signs of emergent etiology causing symptoms today. Offered GI referral however patient declined and states she will follow-up with her primary care doctor. Strict return/alarm symptoms discussed with patient in detail and she shows cyan ding and agrees to plan. Case discussed with my attending Dr. Molina. Patient discharged in stable condition. Undiagnosed new problem with uncertain prognosis? @ -No Drug Therapy requiring intensive monitoring for toxicity (Heparin, Nitro, Insulin, Cardizem)? @ -No Were any procedures done? @ -No Diagnosis/symptom? @ -Sensation of foreign body in esophagus Acute, or Chronic, or Acute on Chronic? @ -Acute Uncomplicated (without systemic symptoms) or Complicated (systemic symptoms)? @ -Uncomplicated Side effects of treatment? @ -No Exacerbation, Progression, or Severe Exacerbation? @ -No Poses a threat to life or bodily function? How? (Chest pain, USA, CT, pneumonia, PE, COPD, DKA, ARF, appy, cholecystitis, CVA, Diverticulitis, Homicidal, Suicidal, threat to staff... and all critical care pts) @ -Low likelihood - Lab Data Result diagrams: 09/04/23 20:32 09/04/23 20:32 Lab Results 09/04/23 09/04/23 09/04/23 Range/Units 20:32 20:32 20:32 WBC 13.0 H (3.8-10.6) k/uL RBC 4.94 (3.80-5.40) m/uL Hgb 14.8 (11.4-16.0) gm/dL Hct 46.3 H (34.0-46.0) % MCV 93.7 (80.0-100.0) fL MCH 29.9 (25.0-35.0) pg MCHC 31.9 (31.0-37.0) g/dL RDW 12.6 (11.5-15.5) % Plt Count 309 (150-450) k/uL MPV 9.0 Neutrophils % 76 % Lymphocytes % 14 % Monocytes % 7 % Eosinophils % 2 % Basophils % 0 % Neutrophils # 9.8 H (1.3-7.7) k/uL Lymphocytes # 1.8 (1.0-4.8) k/uL Monocytes # 0.9 (0-1.0) k/uL Eosinophils # 0.2 (0-0.7) k/uL Basophils # 0.0 (0-0.2) k/uL Sodium 139 (137-145) mmol/L Potassium 5.0 (3.5-5.1) mmol/L Chloride 107 (98-107) mmol/L Carbon Dioxide 23 (22-30) mmol/L Anion Gap 9 mmol/L BUN 20 H (7-17) mg/dL Creatinine 1.18 H (0.52-1.04) mg/dL Est GFR (CKD-EPI)AfAm 49 (>60 ml/min/1.73 sqM) Est GFR (CKD-EPI)NonAf 43 (>60 ml/min/1.73 sqM) Glucose 102 H (74-99) mg/dL Calcium 9.9 (8.4-10.2) mg/dL Magnesium 1.8 (1.6-2.3) mg/dL Total Bilirubin 0.7 (0.2-1.3) mg/dL AST 24 (14-36) U/L ALT 21 (4-34) U/L Alkaline Phosphatase 109 (38-126) U/L Troponin I <0.012 (0.000-0.034) ng/mL Total Protein 6.7 (6.3-8.2) g/dL Albumin 3.9 (3.5-5.0) g/dL - EKG Data -: EKG Interpreted by [facility] EKG Comments: EKG reveals normal sinus rhythm with no ST changes. Ventricular rate 64 bpm, CA interval 185, QRS duration 96, QT/QTc 411/420 Disposition Clinical Impression: Sensation of foreign body in esophagus Disposition: HOME SELF-CARE Condition: Stable Additional Instructions: Please return to the Emergency Department if symptoms worsen or any other concerns. Is patient prescribed a controlled substance at d/c from ED?: No Referrals: Shadi Muhammad MD [Primary Care Provider] - 1-2 days Time of Disposition: 22:06
--- NOTE | 2023-09-04 20:47 | XR ---
EXAMINATION TYPE: XR chest 2V DATE OF EXAM: 09/04/2023 8:39 PM CLINICAL INDICATION:Female, 82 years old with history of chest pain; COMPARISON: Chest radiographs from 04/19/2020. TECHNIQUE: XR chest 2V Frontal and lateral views of the chest. FINDINGS: Lungs/Pleura: There is no evidence of pleural effusion, focal consolidation, or pneumothorax. Pulmonary vascularity: Unremarkable. Heart/mediastinum: Cardiomediastinal silhouette is unremarkable. Musculoskeletal: No acute osseous pathology. IMPRESSION: No acute cardiopulmonary disease/process.
[2023-09-04] MEDS: MAG HYDROX/AL HYDROX/SIMETH 30 ML CUP PO STA (20:56)
[2023-09-04] MEDS: FAMOTIDINE 20 MG TAB PO STA (20:56)
[2023-09-04] MEDS: PANTOPRAZOLE 40 MG/10 ML VIAL IVP STA (20:58)
[2023-09-04 21:44] LABS: ALT 21 U/L (4-34); AST 24 U/L (14-36); African American GFR (CKD) 49 (>60 ml/min/1.73 sqM); Albumin 3.9 g/dL (3.5-5.0); Alkaline Phosphatase 109 U/L (38-126); Anion Gap 9 mmol/L; Blood Urea Nitrogen 20 mg/dL (7-17); Calcium 9.9 mg/dL (8.4-10.2); Carbon Dioxide 23 mmol/L (22-30); Chloride 107 mmol/L (98-107); Glucose 102 mg/dL (74-99); Magnesium 1.8 mg/dL (1.6-2.3); Non-African American GFR(CKD) 43 (>60 ml/min/1.73 sqM); Sodium 139 mmol/L (137-145); Total Bilirubin 0.7 mg/dL (0.2-1.3); Total Protein 6.7 g/dL (6.3-8.2)
[2023-09-04 21:50] LABS: Basophils % (A) 0 %; Eosinophils # (A) 0.2 k/uL (0-0.7); Eosinophils % (A) 2 %; HCT 46.3 % (34.0-46.0); HGB 14.8 gm/dL (11.4-16.0); Lymphocytes # (A) 1.8 k/uL (1.0-4.8); Lymphocytes % (A) 14 %; MCH 29.9 pg (25.0-35.0); MCHC 31.9 g/dL (31.0-37.0); MCV 93.7 fL (80.0-100.0); Monocytes # (A) 0.9 k/uL (0-1.0); Monocytes % (A) 7 %; Neutrophils # (A) 9.8 k/uL (1.3-7.7); Neutrophils % (A) 76 %; Platelet Count 309 k/uL (150-450); RBC 4.94 m/uL (3.80-5.40); RDW 12.6 % (11.5-15.5)
[2023-09-04 22:20] VITALS: BP 151/72; PULSE 60; RESP 18; TEMP 97.9
== END 2023-09-04 22:28 | disposition home or self-care (01) ==
LOC: EC 18:49
DX: T18.128A Food in esophagus causing other injury, initial encounter (principal); Z90.49 Acquired absence of other specified parts of digestive tract
CPT/HCPCS: 36415; 93005; 80053; 83735; 84484; 85025; 71046; 99283; 96374; C9113

== ENCOUNTER → 2024-01-23 | Outpatient (CLI) | payer MEDICARE ==
[2024-01-23 12:57] LABS: Partial Thromboplastin Time 25.6 sec (22.0-30.0)
[2024-01-23 15:04] LABS: HCT 43.6 % (37.2-46.3); HGB 13.6 g/dL (12.0-15.0); MCH 29.5 pg (27.0-32.0); MCHC 31.2 g/dL (32.0-37.0); MCV 94.6 FL (80.0-97.0); NRBC Per 100 WBC 0 X 10*3/uL (0.00-0.01); Platelet Count 323 X 10*3/uL (140-440); RBC 4.61 X 10*6/uL (4.10-5.20); WBC 9.96 X 10*3/uL (4.50-10.00)
[2024-01-23 15:06] LABS: ALT 25 U/L (8-44); AST 23 U/L (13-35); Albumin 3.9 g/dL (3.8-4.9); Albumin/Globulin Ratio 1.56 Ratio (1.60-3.17); Alkaline Phosphatase 111 U/L (41-126); Calcium 10.1 mg/dL (8.7-10.3); Carbon Dioxide 20.7 mmol/L (21.6-31.8); Chloride 107 mmol/L (96-109); Globulin 2.5 g/dL (1.6-3.3); Glucose 130 mg/dL (70-110); Potassium 4.7 mmol/L (3.5-5.5); Sodium 139 mmol/L (135-145); Total Bilirubin 0.6 mg/dL (0.3-1.2); Total Protein 6.4 g/dL (6.2-8.2)
== END | disposition home or self-care (01) ==
LOC: LABWHC1 11:14
PROVIDERS: ATTEND Orthopaedic Surgery
DX: Z01.818 Encounter for other preprocedural examination (principal); Z22.322 Carrier or suspected carrier of Methicillin resistant Staphylococcus aureus; E11.9 Type 2 diabetes mellitus without complications
CPT/HCPCS: 36415; 80053; 83036; 85027; 85610; 85730; 86850; 86900; 86901; 87070

== ENCOUNTER 2024-02-03 05:31 | Day surgery (SDC) | payer MEDICARE ==
[2024-02-03] MEDS ORDERED: DEXAMETHASONE SOD PHOSPHATE 10 MG/ML 1 ML VIAL IV PRN (06:00)
[2024-02-03] MEDS ORDERED: TRANEXAMIC 1,000 MG/100ML-NACL 1,000 MG in SALINE 1 100ML.BAG IV PRN (06:00)
[2024-02-03] MEDS ORDERED: TRANEXAMIC 1,000 MG/100ML-NACL 1,000 MG in SALINE 1 100ML.BAG IVPB PRN (06:00)
[2024-02-03] MEDS: ACETAMINOPHEN TAB 500 MG TAB PO PRN (06:44)
[2024-02-03] MEDS: oxyCODONE ER 10 MG TAB.ER.12H PO PRN (06:44)
[2024-02-03] MEDS: DOCUSATE 100 MG CAP PO PRN (06:44)
[2024-02-03] MEDS: ONDANSETRON 4 MG/2 ML VIAL IVP PRN ×2 (06:45→10:34)
[2024-02-03] MEDS: DEXAMETHASONE SOD PHOSPHATE 4 MG/ML 1 ML VIAL IVP STA (06:46)
[2024-02-03] MEDS: KETOROLAC 15 MG/ML 1 ML VIAL IVP PRN (06:46)
[2024-02-03] MEDS: FAMOTIDINE 20 MG/2 ML VIAL IVP PRN (06:46)
[2024-02-03] MEDS: LACTATED RINGERS 1,000 ML IV SCH (06:47)
[2024-02-03] MEDS: fentaNYL (PF) 50 MCG/ML 2 ML AMP IVP PRN (06:55)
[2024-02-03] MEDS: MIDAZOLAM 2 MG/2 ML VIAL IV PRN (06:55)
[2024-02-03] MEDS ORDERED: HYDROmorphone 0.5 MG/0.5 ML SYRINGE IVP PRN ×3 (07:00→09:30)
[2024-02-03] MEDS: IV FLUID CONTINUATION 1,000 ML IV ONE (07:09)
[2024-02-03] MEDS ORDERED: SUCCINYLCHOLINE CHLORIDE 200 MG/10 ML VIAL IV ONE (07:21)
[2024-02-03] MEDS ORDERED: GLYCOPYRROLATE 0.2 MG/ML 2 ML VIAL ONE (07:21)
[2024-02-03] MEDS ORDERED: LIDOCAINE 1% INJ 10MG/ML (20 ML MDV) ONE (07:21)
[2024-02-03] MEDS ORDERED: PROPOFOL 10 MG/ML 20 ML VIAL IV ONE (07:21)
[2024-02-03] MEDS ORDERED: ROCURONIUM 10 MG/ML (5 ML VIAL) IV ONE (07:21)
[2024-02-03] MEDS ORDERED: NEOSTIGMINE 1 MG/ML 10 ML VIAL ONE (07:21)
[2024-02-03] MEDS ORDERED: ROPIVACAINE 5 MG/ML 30 ML VIAL ONE (07:21)
[2024-02-03] MEDS ORDERED: WATER FOR INJECTION, STERILE 10 ML VIAL IV ONE (07:21)
[2024-02-03] MEDS ORDERED: TRANEXAMIC 1,000 MG/100ML-NACL PREMIX BAG ONE (07:21)
[2024-02-03] MEDS ORDERED: fentaNYL (PF) 50 MCG/ML 2 ML AMP ONE (07:21)
[2024-02-03] MEDS ORDERED: ePHEDrine 50 MG/ML 1 ML VIAL ONE (07:21)
[2024-02-03] MEDS: ROPIVACAINE/EPI/CLONIDINE/KET 50 ML SYRINGE MISCELLANE PRN (08:06)
[2024-02-03] MEDS: LACTATED RINGERS 1,000 ML IV ONE (08:55)
--- NOTE | 2024-02-03 09:19 | XR ---
Fluoroscopy INDICATION: Pain FINDINGS: Fluoroscopy time: 30.5 seconds. Total dose area product (DAP) in uGy*m?, mGy*cm? (or similar): 2.1061 Images obtained: 7. There is placement of a left hip prosthesis. IMPRESSION: 1. Documentation of fluoroscopy. [facility], , 02/03/2024 9:17 AM
--- NOTE | 2024-02-03 09:20 | FL ---
Fluoroscopy INDICATION: Pain FINDINGS: Fluoroscopy time: 30.5 seconds. Total dose area product (DAP) in uGy*m?, mGy*cm? (or similar): 2.1061 Images obtained: 0. IMPRESSION: 1. Documentation of fluoroscopy. [facility], , 02/03/2024 9:18 AM
--- NOTE | 2024-02-03 09:20 | P.OP ---
Date of Procedure: 02/03/24 Preoperative Diagnosis: left hip osteoarthritis Postoperative Diagnosis: same Procedure(s) Performed: Left direct anterior total hip arthroplasty Implants: 1. Janette Trident II Acetabular Cup, Size #56 2. [place] Accolade C Size #5 Femoral Stem, StandardOffset 3. Biolox delta femoral head, 36 mm, -2.5 mm neck Anesthesia: GETA, regional Surgeon: Abhilash Meraz Regional Flatbed Truck Driver #1: Moe Howard Estimated Blood Loss (ml): 200 IV fluids (ml): 800 Pathology: none sent Condition: stable Disposition: PACU Indications for Procedure: I had a long discussion with the patient in the office on the potential risks and complications of an elective total hip replacement through a direct anterior approach. Risks discussed include, but are certainly not limited to, risks from anesthesia, superficial infection requiring local wound care or antibiotics, deep ruth-prosthetic joint infection and the treatment required to eradicate infection, intraoperative fracture, postoperative periprosthetic fracture, damage to local blood vessels or nerves particularly the lateral femoral cutaneous nerve, delayed wound healing requiring local wound care or possibly surgical debridement, hip dislocation, leg length discrepancy, soft tissue irritation around the total hip implant such as iliopsoas tendinitis or trochanteric bursitis, wear and osteolysis from the implants, squeaking or audible noises, groin pain, thigh pain, heterotopic ossification, stiffness, aseptic loosening of the implants, dissatisfaction with surgical outcome, need for revision surgery, DVT, PE, swelling of the operative extremity, acute coronary event, stroke, failure to thrive, and possibly loss of life or limb. The patient understands that while these are the most common complications after an elective hip replacement there are certainly other less common complications possible. They were given ample time to ask questions regarding the potential complications of a hip replacement. Following our discussion the patient prov ided their verbal and written consent to go forward with an elective total hip replacement. Operative Findings: Severe left hip osteoarthritis Description of Procedure: The patient was identified in the preoperative holding area and the correct hip was marked with my initials. I reviewed the procedure and consent with the patient. All of their questions were answered. The patient was then brought back into the operating room by anesthesia. While on the [facility] anesthesia was administered by the anesthesia team. Preoperative antibiotics and tranexamic acid were also given. After the patient was under anesthesia I examined their ankles to determine their preoperative leg length discrepancy. The skin over the anterior aspect of the hip was shaved to remove hair over the site of planned incision. Both feet and ankles were padded with webril and boots for the Mckenna were applied. The patient was then carefully transferred onto the Mckenna table. A perineal post was immediately placed. The arms were placed on arm holders and were well-padded. Both boots were secured to the spars on the Mckenna table. The patient was positioned so that the pelvis was centered over the post. Nonsterile drapes were applied. A timeout was performed identifying the correct patient, operative extremity, and procedure. At this point fluoroscopy was brought in to take preoperative images of the pelvis and operative hip. Using the standing AP pelvis from the office as a template, a comparable image was obtained with fluoroscopy. A metallic bar was used to create a bi-ischial line for use as a reference to leg length adjustments during the procedure. Global offset was also measured on both the operative and nonoperative leg. Fluoroscopy was then brought out and a pre-scrub using a chlorhexidine scrub brush was performed. The operative limb was then prepped and draped in the standard sterile fashion. An anterior longitudinal incision was made lateral and distal to the ASIS. The skin and subcutaneous tissues were incised sharply. The underlying tensor fascia was identified and incised in its midportion. The fascia was dissected f ree from the underlying muscle and the muscle belly was retracted. A blunt tipped cobra retractor was placed over the superior neck under the muscle fibers of the gluteus minimus. The deep enveloping fascia of the tensor was incised. The anterior leash of vessels were then identified and cauterized. The fascia between the rectus and the capsule was then incised and the pre-capsular fat was excised. A second Cobra was placed inferior to the neck. The interval between the rectus and iliocapsularis and the hip capsule was developed and a retractor was placed carefully over the anterior rim of the acetabulum. A T-shaped anterior capsulotomy was performed. The superior capsular leaflet was left in place in the inferior capsular flap was excised. The Cobra retractors were placed intracapsularly. We then made a femoral neck osteotomy according to preoperative and intraoperative templating and confirmed the level of the osteotomy using fluoroscopic imaging. The femoral head was removed, passed off to the back table, and sized. The superior capsular flap was excised. Retractors were placed circumferentially exposing the acetabulum. We then circumferentially debrided the acetabulum free of labrum and osteophytes. The pulvinar was removed to fully visualize the cotyloid fossa. We then sequentially reamed to achieve peripheral fit and excellent bleeding subchondral bone. The socket was thoroughly irrigated. The acetabular component was impacted into the appropriate position using fluoroscopy to guide version, inclination, and depth of insertion taking care to have a comparable image of the AP pelvis to the standing image taken in the office. An excellent press-fit was achieved and final position was confirmed using fluoroscopy. The press fit was augmented with bony cancellus dome screws. The liner was then impacted into the socket. Attention was then turned to the femur. The remnant dorsal lateral capsule was excised. The short external rotators were visible and protected. A bone hook was used to confirm appropriate translation of the trochanter away from the acetabulum. The leg was then extended and adducted and the bone hook was used to elevate the femur for broaching. On inspection of the patient's proximal femur, they appeared to have poor bone quality so I elected to proceed with cemented fixation of the femoral component. A box osteotome and blunt tipped canal sound was then utilized to gain access to the femoral canal. We then sequentially broached the femur in appropriate anteversion until torsional stability was achieved and the implant was felt to have reached the appropriate size to allow trialing. The neck cut was brought flush to the trial broach with a calcar planar. A trial neck and head were then placed onto the broach and the hip was atraumatically reduced under direct visualization. External rotation to 90 was performed to assess stability. Fluoroscopy was brought in. An AP and lateral fluoroscopic image of the proximal femur was obtained to assess position and fill of the trial broach. An AP of the pelvis was then obtained and matched to the preoperative image taken. A bi-ischial bar was then placed and measurements were taken to assess changes in length and offset. The hip was then carefully dislocated, the proximal femur was exposed, and the trial implants were removed. The proximal femur was then prepared for cementing. The canal was thoroughly irrigated with pulsatile lavage to remove blood and marrow contents. A cement restrictor was placed to a depth just distal to the tip of the final implant. Epinephrine-soaked gauze was then packed into the proximal femur. 2 bags of cement were then mixed using a centrifuge and placed into a cement gun. Anesthesia was notified that cementing was about to commence to make sure the patient was appropriately ventilated and hydrated. Once the cement had reached appropriate consistency, the cement gun was used to fill the canal in a retrograde fashion starting at the restrictor. Cement was then pressurized into the canal with a blue tipped asp net programmer. The stem was then carefully introduced into the cement taking care to guide the implant into appropriate version. The stem was held in position until the cement had fully set. All extra cement was removed while the cement was hardening. The trunnion was cleansed and the final head was tapped into place to engage the Moulton taper. The acetabulum was irrigated and visualized to be free of debris. The hip was carefully reduced. Stability was checked clinically with external rotation to 90 and there was no evidence of instability. Final fluoroscopic images were taken. The wound was then thoroughly irrigated and soaked with a dilute Betadine rinse for 3 minutes. 3 L of sterile saline was irrigated through the wound using pulsatile lavage. Local anesthetic cocktail was injected into the soft tissues around the surgical field. The wound was then closed in layers. A sterile dressing was placed over the surgical incision. The drapes were taken down and the patient was carefully transferred off of the Mckenna table. Following removal of the boots the leg lengths felt acceptable. The patient was then taken to recovery room having tolerated the procedure well. Moe Howard PA-C was required as a skilled social work assistant due to the complexity of surgery for patient positioning, draping, exposure, retraction, closure of wound, and application of dressing. PLAN: The patient can weight-bear as tolerated on the operative extremity. 2 doses of postoperative antibiotics. DVT prophylaxis - resume Xarelto tomorrow. Physical therapy for gait training.
[2024-02-03] MEDS ORDERED: MAGNESIUM HYDROXIDE 2,400 MG/30 ML CUP PO PRN (09:30)
[2024-02-03] MEDS ORDERED: NALOXONE 0.4 MG/ML 1 ML VIAL IV PRN (09:30)
[2024-02-03] MEDS ORDERED: hydrOXYzine pamoate 25 MG CAP PO PRN (09:30)
[2024-02-03] MEDS ORDERED: ACETAMINOPHEN TAB 325 MG TAB PO PRN (09:30)
--- NOTE | 2024-02-03 10:21 | P.ANPRN ---
Procedure Note - Anesthesia - Nerve Block Performed Left Keny Single Time Out Performed: Yes ([id number]) Date of Procedure: 02/03/24 Procedure Start Time: 06:55 Procedure Stop Time: 06:59 Location of Patient: PreOp Indication: Acute Post-Operative Pain, Requested by Surgeon Specifically requested for management of pain by DrHenry: Abhilash Meraz Sedation Type: Sedate with meaningful contact maintained Preparation: Sterile Prep Position: Supine Catheter: None Needle Types: Pajunk Needle Gauge: 21 Ultrasound used to visualize needle placement: Yes Ultrasound used to observe medication spread: Yes Injectate: 0.5% Ropivacaine (see comment for volume) (30cc) Blood Aspirated: No Pain Paresthesia on Injection Noted: No Resistance on Injection: Normal Image Stored and Saved: Yes Events: Uneventful and Well Tolerated
[2024-02-03] MEDS: droPERidol 5 MG/2 ML VIAL IVP ONE (10:58)
[2024-02-03] MEDS: SODIUM CHLORIDE 0.9% 1,000 ML IV SCH (11:57)
[2024-02-03] MEDS: HYDROmorphone 0.5 MG/0.5 ML SYRINGE IVP PRN (12:24)
[2024-02-03] MEDS: lisinopriL 10 MG TAB PO SCH (17:34)
[2024-02-03] MEDS ORDERED: NON FORMULARY DRUG (Apixaban [Eliquis Starter Pack (For Vte)] 5 MG Packet) PO SCH (21:00)
--- NOTE | 2024-02-03 21:09 | CONS ---
CONSULTATION REASON FOR CONSULTATION: Advice regarding atrial fibrillation and other medical issues, requested by Orthopedic Surgery. HISTORY OF PRESENT ILLNESS: This is an 83-year-old woman with a past medical history of multiple medical problems including atrial fibrillation, taking Eliquis, underwent left direct anterior total hip joint arthroplasty. There is no history of any fever, rigors, or chills. No history of headache, loss of consciousness, or seizures. PAST MEDICAL HISTORY: Atrial fibrillation, hypertension, hyperlipidemia. Rest of the history and rest of the chart is also noted. ALLERGIES: Chlorthalidone. FAMILY HISTORY: History of dementia. SOCIAL HISTORY: No history of smoking, or alcohol. REVIEW OF SYSTEMS: A 14-point review of systems is negative except as mentioned earlier. PHYSICAL EXAMINATION: VITAL SIGNS: Pulse 78, blood pressure 140/70, respirations 18. HEENT: Conjunctivae normal. NECK: No JVD. CARDIOVASCULAR: S1, S2. RESPIRATIONS: Breath sounds diminished at the bases. No rhonchi. No crackles. ABDOMEN: Soft. LEGS: Status post surgery. NERVOUS SYSTEM: Nonfocal. LABORATORY DATA: Preop labs are reviewed and are within normal limits. ASSESSMENT: 1. Status post left total hip joint arthroplasty. 2. Atrial fibrillation. 3. Hypertension. 4. Hyperlipidemia. 5. History of pulmonary embolism. 6. History of arrhythmia and palpitations. RECOMMENDATIONS AND DISCUSSION: This is an 83-year-old woman, who presented with multiple complex medical issues, we will monitor the patient closely. Continue the current management and continue symptomatic treatment. Continue with Eliquis. Resume the home medications. DVT prophylaxis. We will follow the patient closely. MMODL / IJN: [id number] /
[2024-02-03] MEDS: ATORVASTATIN 40 MG TAB PO SCH (21:55)
[2024-02-03] MEDS: FLECAINIDE 50 MG TAB PO SCH (21:55)
[2024-02-03] MEDS: HYDROcodone/APAP 5-325MG 1 EACH TAB PO PRN (21:55)
[2024-02-03] MEDS: SENNOSIDES-DOCUSATE SODIUM 1 EACH TAB PO SCH (21:55)
[2024-02-04] MEDS: HYDROcodone/APAP 10-325MG 1 EACH TAB PO PRN (03:33)
[2024-02-04] MEDS: LEVOTHYROXINE 100 MCG TAB PO SCH (06:30)
--- NOTE | 2024-02-04 08:22 | P.PN ---
Subjective Progress Note Date: 02/04/24 Patient is doing well this morning. She is able to get up out of bed to go to the bathroom yesterday. She has had urinary retention overnight. No other complaints this morning. Objective - Vital Signs Vital signs: Vital Signs Temp 98.1 F 02/04/24 00:51 Pulse 71 02/04/24 00:51 Resp 19 02/04/24 00:51 BP 136/68 02/04/24 00:51 Pulse Ox 95 02/04/24 00:51 FiO2 Intake & Output 02/03/24 02/04/24 02/04/24 18:59 06:59 18:59 Intake Total 1100 Output Total 700 Balance 400 Weight 103.2 kg Intake: IV 1100 Output: Urine 500 Straight 500 Estimated Blood Loss 200 Other: # Voids 2 - Exam The patient is resting comfortably in their bed. A focused examination of the operative hip was performed. On inspection there is a clean-appearing dressing over the anterior hip with no drainage or strike through. There is mild swelling throughout the thigh. Femoral nerve function is intact. The patient is able to actively dorsiflex and plantarflex their ankle and toes. Sensation is intact to light touch throughout the foot. The foot is warm and well-perfused with brisk capillary refill. Assessment and Plan Assessment: Postop day #1 status post direct anterior total hip arthroplasty Plan: 1. Weight bear as tolerated on the operative extremity, up with assistance and a walker 2. DVT prophylaxis with Eliquis 3. 2 doses of post operative antibiotics 4. Leave surgical dressing in place 5. Internal medicine for ruth-operative medical management 6. Physical therapy for gait training and mobilization 7. Dispo: Awaiting assessment by physical therapy. We discussed both discharge home under the care of her son with home health versus discharge to a short-term nursing or rehab facility.
[2024-02-04] MEDS: APIXABAN 5 MG TAB PO SCH (08:23)
[2024-02-04] MEDS: FAMOTIDINE 20 MG TAB PO SCH (08:24)
[2024-02-04 09:53] LABS: HCT 38.6 % (37.2-46.3); MCH 29.7 pg (27.0-32.0); MCHC 31.1 g/dL (32.0-37.0); MCV 95.5 FL (80.0-97.0); Mean Platelet Volume 9.8 FL (9.5-12.2); NRBC Per 100 WBC 0 X 10*3/uL (0.00-0.01); Platelet Count 253 X 10*3/uL (140-440); RBC 4.04 X 10*6/uL (4.10-5.20); WBC 17.14 X 10*3/uL (4.50-10.00)
[2024-02-04] MEDS: BENZOCAINE/MENTHOL LOZENG 1 EACH LOZENGE MUCOUS MEM PRN (11:39)
[2024-02-04 12:49] LABS: Basophils # (A) 0.04 X 10*3/uL (0.00-0.10); Basophils % (A) 0.2 %; Eosinophils # (A) 0.02 X 10*3/uL (0.04-0.35); Eosinophils % (A) 0.1 %; Lymphocytes # (A) 1.59 X 10*3/uL (0.90-5.00); Lymphocytes % (A) 9.3 %; Monocytes # (A) 2.05 X 10*3/uL (0.20-1.00); Neutrophils # (A) 13.31 X 10*3/uL (1.80-7.70); Neutrophils % (A) 77.6 %
[2024-02-04] MEDS: CALCIUM CARBONATE 500 MG CHEWABLE PO PRN (17:12)
[2024-02-04] MEDS: PANTOPRAZOLE 40 MG/10 ML VIAL IVP SCH (17:34)
--- NOTE | 2024-02-05 05:54 | PN ---
PROGRESS NOTE DATE OF SERVICE: 02/04/2024 SUBJECTIVE: This is an 83-year-old woman, who was admitted after left total hip joint arthroplasty, being closely monitored. No chest pain. No palpitation. OBJECTIVE: VITAL SIGNS: Pulse is 65, blood pressure 138/60, respirations 18. CHEST: Clear to auscultation. CARDIOVASCULAR: S1, S2. ABDOMEN: Soft. NERVOUS SYSTEM: Nonfocal. LABORATORY DATA: WBC 17.14. ASSESSMENT: 1. Status post left total hip joint arthroplasty. 2. Elevated WBC. 3. Atrial fibrillation. 4. Hypertension. 5. Hyperlipidemia. 6. History of pulmonary embolism. 7. History of arrhythmia and palpitations. RECOMMENDATIONS AND DISCUSSION: Recommend to continue current medications. Continue symptomatic treatment. Otherwise, Eliquis and stop IV fluids at this time and continue to monitor. Further recommendations to follow. Repeat labs tomorrow. ARMONDL / TRISTANN: [id number] /
--- NOTE | 2024-02-05 08:41 | P.PN ---
Subjective Patient is doing well this morning. Her pain is controlled. She did have one episode yesterday of heartburn which prompted a troponin which was negative. Her heartburn has improved per nursing with protonix. She denies chest pain or shortness of breath this morning. Objective - Vital Signs Vital signs: Vital Signs Temp 99.3 F 02/05/24 07:05 Pulse 78 02/05/24 07:05 Resp 16 02/05/24 07:05 BP 150/74 02/05/24 07:05 Pulse Ox 93 L 02/05/24 07:05 FiO2 Intake & Output 02/04/24 02/05/24 02/05/24 18:59 06:59 18:59 Intake Total 1080 Balance 1080 Intake: Oral 1080 Other: # Voids 2 7 1 - Exam The patient is resting comfortably in their bed. A focused examination of the operative hip was performed. On inspection there is a clean-appearing dressing over the anterior hip with no drainage or strike through. There is mild swelling throughout the thigh. Femoral nerve function is intact. The patient is able to actively dorsiflex and plantarflex their ankle and toes. Sensation is intact to light touch throughout the foot. The foot is warm and well-perfused w ith brisk capillary refill. - Labs CBC & Chem 7: 02/04/24 06:24 Labs: Abnormal Lab Results - Last 24 Hours (Table) 02/04/24 Range/Units 06:24 WBC 17.14 H (4.50-10.00) X 10*3/uL RBC 4.04 L (4.10-5.20) X 10*6/uL MCHC 31.1 L (32.0-37.0) g/dL Immature Gran # 0.13 H (0.00-0.04) X 10*3/uL Neutrophils # 13.31 H (1.80-7.70) X 10*3/uL Monocytes # 2.05 H (0.20-1.00) X 10*3/uL Eosinophils # 0.02 L (0.04-0.35) X 10*3/uL Assessment and Plan Assessment: Postop day #2 status post left direct anterior total hip arthroplasty Plan: The patient is doing better this morning. Her heartburn has resolved. She did relatively well with physical therapy yesterday but the recommendation was to stay an additional 1-2 days in the hospital before discharging home with home health care. According to nursing the patient struggled with stairs yesterday. She has 5 stairs at home. I would like to keep the patient until tomorrow so she can have one additional session with physical therapy to work on navigating stairs. Otherwise continue treatment as outlined yesterday.
[2024-02-05 09:47] LABS: Blood Urea Nitrogen 14.5 mg/dL (9.0-27.0); Calcium 9.3 mg/dL (8.7-10.3); Carbon Dioxide 21.7 mmol/L (21.6-31.8); Chloride 108 mmol/L (96-109); Glucose 100 mg/dL (70-110); Potassium 4.4 mmol/L (3.5-5.5); Sodium 140 mmol/L (135-145)
[2024-02-05 10:02] LABS: Basophils # (A) 0.06 X 10*3/uL (0.00-0.10); Basophils % (A) 0.5 %; Eosinophils # (A) 0.11 X 10*3/uL (0.04-0.35); Eosinophils % (A) 0.8 %; HCT 36.5 % (37.2-46.3); HGB 11.5 g/dL (12.0-15.0); Lymphocytes # (A) 1.88 X 10*3/uL (0.90-5.00); Lymphocytes % (A) 14.2 %; MCH 29.9 pg (27.0-32.0); MCHC 31.5 g/dL (32.0-37.0); MCV 94.8 FL (80.0-97.0); Mean Platelet Volume 10.1 FL (9.5-12.2); Monocytes # (A) 2.05 X 10*3/uL (0.20-1.00); Monocytes % (A) 15.4 %; NRBC Per 100 WBC 0 X 10*3/uL (0.00-0.01); Neutrophils % (A) 68.5 %; Platelet Count 237 X 10*3/uL (140-440); RBC 3.85 X 10*6/uL (4.10-5.20); RDW 13.3 % (11.5-14.5); WBC 13.28 X 10*3/uL (4.50-10.00)
--- NOTE | 2024-02-06 04:21 | PN ---
PROGRESS NOTE DATE OF SERVICE: 02/05/2024 SUBJECTIVE: This is an 83-year-old woman, who was admitted after left total hip joint arthroplasty, improving. No chest pain. No palpitations. No fever. PHYSICAL EXAMINATION: VITAL SIGNS: Pulse 78, blood pressure 150/75, respirations 16. CHEST: Clear to auscultation. CARDIOVASCULAR: S1, S2. ABDOMEN: Soft. NERVOUS SYSTEM: Nonfocal LABORATORY DATA: WBC 13.8. ASSESSMENT: 1. Status post left total hip joint arthroplasty. 2. Elevated WBC possibly reactive. 3. Atrial fibrillation. 4. Multiple medical issues including history of pulmonary embolus. Recommended to continue current management. 5. DVT prophylaxis. The patient is on Eliquis. We will continue to monitor. Further recommendations to follow. Repeat labs in the morning. MMODL / IJN: [id number] /
[2024-02-06 07:49] VITALS: BP 125/67; PULSE 72; RESP 18; TEMP 98.9
--- NOTE | 2024-02-06 07:50 | P.DS ---
Providers Date of admission: 02/03/2024 Attending physician: Abhilash Meraz Consults: 02/03/24 09:30 Consult Physician Routine Consulting Provider: Shadi Muhammad Consult Reason/Comments: Postop left total hip replacement medical management Do you want consulting provider notified?: Yes Primary care physician: Shadi Muhammad Hospital Course: The patient is very opposed 83-year-old female who underwent an uncomplicated total hip replacement. Functioning she was transferred to the orthopedic floor. She received 2 doses of postoperative antibiotics. She was restarted on her home anticoagulation for DVT prophylaxis. She was seen by internal medicine. She worked with physical therapy. She was seen on postoperative day #3 and was doing well. Her dressing was intact. Femoral and sciatic nerve function was intact. She is doing well and was ultimately cleared for discharge home with home healthcare services pending one final session with physical therapy. Patient Condition at Discharge: Good Plan - Discharge Summary Discharge Rx Participant: No New Discharge Prescriptions: New Omeprazole 20 mg PO DAILY #30 tab Ondansetron [Zofran] 4 mg PO Q6HR PRN #30 tab PRN Reason: Nausea HYDROcodone/APAP 5-325MG [Wilson 5] 1 each PO Q6HR PRN #48 tab PRN Reason: Pain Sennosides-Docusate Sodium [Senokot-S] 1 tab PO BID PRN #60 tablet PRN Reason: Constipation No Action Levothyroxine Sodium [Synthroid] 100 mcg PO DAILY Atorvastatin [Lipitor] 40 mg PO HS lisinopriL [Prinivil] 10 mg PO DAILY Flecainide [Tambocor] 50 mg PO BID Apixaban [Eliquis Starter Pack (for VTE)] 5 mg PO BID Unk Multi Vitamin 1 tab PO DAILY Discharge Medication List Atorvastatin [Lipitor] 40 mg PO HS 11/26/14 [History] Levothyroxine Sodium [Synthroid] 100 mcg PO DAILY 11/26/14 [History] lisinopriL [Prinivil] 10 mg PO DAILY 04/19/20 [History] Flecainide [Tambocor] 50 mg PO BID 11/09/22 [History] Apixaban [Eliquis Starter Pack (for VTE)] 5 mg PO BID 01/27/24 [History] Unk Multi Vitamin 1 tab PO DAILY 01/27/24 [History] HYDROcodone/APAP 5-325MG [Wilson 5] 1 each PO Q6HR PRN #48 tab 02/03/24 [Rx] Omeprazole 20 mg PO DAILY #30 tab 02/03/24 [Rx] Ondansetron [Zofran] 4 mg PO Q6HR PRN #30 tab 02/03/24 [Rx] Sennosides-Docusate Sodium [Senokot-S] 1 tab PO BID PRN #60 tablet 02/03/24 [Rx] Follow up Appointment(s)/Referral(s): Abhilash Meraz MD [Medical Doctor] - 2 Weeks Activity/Diet/Wound Care/Special Instructions: 1. Weight-bear as tolerated on your operative extremity unless instructed otherwise. Use a walker or other assistive device to ambulate. 2. Leave surgical dressing in place. If your dressing becomes saturated with blood, there is drainage, or the dressing becomes loose please contact the office. 3. It is okay to shower with your surgical dressing, but do not submerge in water (no hot tubs, bath's, swimming etc.) 4. Resume home Eliquis for DVT prophylaxis. Take your blood clot prevention medication as prescribed (aspirin, Eliquis, Xarelto, and Plavix are commonly prescribed medications for blood clot prevention) 5. While taking Wilson or Percocet for pain take a stool softener (Ex: Colace) and drink lots of water. 6. Keep all follow-up appointments as scheduled. You will usually be seen in 1-2 weeks following surgery. 7. Please contact the office with any questions or concerns [phone] Discharge Disposition: HOME WITH HOME HEALTH SERVICES
[2024-02-06 08:45] LABS: Basophils # (A) 0.05 X 10*3/uL (0.00-0.10); Basophils % (A) 0.4 %; Eosinophils # (A) 0.21 X 10*3/uL (0.04-0.35); Eosinophils % (A) 1.7 %; HCT 34.9 % (37.2-46.3); HGB 10.9 g/dL (12.0-15.0); Lymphocytes # (A) 1.89 X 10*3/uL (0.90-5.00); MCH 29.6 pg (27.0-32.0); MCHC 31.2 g/dL (32.0-37.0); MCV 94.8 FL (80.0-97.0); Mean Platelet Volume 10.3 FL (9.5-12.2); Monocytes # (A) 1.84 X 10*3/uL (0.20-1.00); Monocytes % (A) 14.6 %; NRBC Per 100 WBC 0 X 10*3/uL (0.00-0.01); Neutrophils # (A) 8.47 X 10*3/uL (1.80-7.70); Neutrophils % (A) 67.5 %; Platelet Count 228 X 10*3/uL (140-440); RBC 3.68 X 10*6/uL (4.10-5.20); RDW 13.1 % (11.5-14.5); WBC 12.56 X 10*3/uL (4.50-10.00)
[2024-02-06 08:48] LABS: BUN/Creat Ratio 15.33 Ratio (12.00-20.00); Blood Urea Nitrogen 13.8 mg/dL (9.0-27.0); Calcium 8.9 mg/dL (8.7-10.3); Carbon Dioxide 22.2 mmol/L (21.6-31.8); Chloride 107 mmol/L (96-109); Glucose 134 mg/dL (70-110); Potassium 3.8 mmol/L (3.5-5.5); Sodium 137 mmol/L (135-145)
--- NOTE | 2024-02-07 08:09 | PN ---
PROGRESS NOTE DATE OF SERVICE: 02/06/2024 SUBJECTIVE: This is an 83-year-old woman, who was admitted after left total hip joint arthroplasty, improving significantly. No chest pain. No palpitations. No fever. PHYSICAL EXAMINATION: VITAL SIGNS: Pulse 72, blood pressure 124/61, respirations 18. CHEST: Clear to auscultation. CARDIOVASCULAR: S1, S2. ABDOMEN: Soft. LEGS: Status post surgery. LABORATORY DATA: Noted. ASSESSMENT: 1. Status post left total hip joint arthroplasty. 2. Elevated WBC, possibly reactive. 3. Atrial fibrillation. 4. Multiple medical issues including history of pulmonary embolism. 5. Deep venous thrombosis prophylaxis. RECOMMENDATIONS AND DISCUSSION: Recommend to continue current management and continue symptomatic treatment. Otherwise, recommend to continue with Eliquis for DVT prophylaxis. Otherwise, follow with primary physician. Rest of the recommendations per Orthopedic Surgery. Further recommendations to follow. MMODL / IJN: [id number] /
== END 2024-02-06 14:04 | disposition home health service (06) ==
LOC: OR 05:31 → 4SSUR 11:36 → OR 02-06 14:04
PROVIDERS: ATTEND Orthopaedic Surgery
DX: M16.12 Unilateral primary osteoarthritis, left hip (principal); I82.492 Acute embolism and thrombosis of other specified deep vein of left lower extremity; Z79.01 Long term (current) use of anticoagulants
CPT/HCPCS: 93005; 97116; 97161; 64999; 80048; 84484; 85025 ×2; 73501; 27130; C1776; C1713; J2250; J1100; J0690 ×2; J2405; J3010; J3490; J1885; J1171; J1790; J2470 ×3